=== PATIENT | female | born 1950 | race African-American/Black ===

== ENCOUNTER 2019-05-26 00:02 | Inpatient (IN) ==
[2019-05-27] MEDS ORDERED: ONDANSETRON 4 MG/2 ML VIAL IV PRN (02:13)
[2019-05-27] MEDS ORDERED: ACETAMINOPHEN 325 MG TABLET PO PRN (02:13)
[2019-05-27 02:46] LABS: Basophils % 0.5 % (0.0-0.8); Eosinophils % 0.2 % (0.00-10.9); Hematocrit 39.5 VOL% (35.7-47.0); Hemoglobin 12.8 GM/DL (12.0-16.0); Immature Granulocytes % 0.4 %; Immature Granulocytes Absolute 0.02 #; Lymphocytes # 0.9 10*3/uL (1.4-4.0); Lymphocytes % 15.9 % (21.3-54.2); Mean Corpuscular HGB Conc 32.4 GM/DL (32-36); Mean Corpuscular Volume 88.8 FL (87-102); Mean Platelet Volume 12.1 FL (9.6-12.0); Monocytes % 8.6 % (1.7-12.7); Neutrophils % 74.4 % (38.7-73.9); Platelet Count 129 T/CUMM (130-400); Red Blood Count 4.45 MC/CUMM (3.8-5.5); Red Cell Distribution Width 14.4 % (9.3-17.3); White Blood Count 5.7 T/CUMM (4-12)
[2019-05-27] MEDS: ENOXAPARIN 60 MG/0.6 ML SYRINGE SUBCUT SCH ×2 (02:59→15:20)
[2019-05-27 03:22] LABS: Albumin 3.2 G/DL (3.4-5.0); Bilirubin,Total 1.2 MG/DL (0.2-1.0); Calcium 8.7 MG/DL (8.5-10.1); Osmolality,Calculated 281.4 MOS/KG (273-304); Risk Ratio 2.1; Thyroid Stimulating Hormone 3.3 uIU/ml (0.358-3.74); Total Protein 6.9 G/DL (6.4-8.3); VLDL CHOLESTEROL 13.2 MG/DL
[2019-05-27 04:49] LABS: Apearance,Urine CLEAR (Clear); Bacteria,Urine Occasional /HPF (Few); Bilirubin,Urine Negative (Negative); Blood, Urine Moderate mg/dL (Negative); Glucose,Urine (UA) Negative (Negative); Hyaline Casts,Urine 1 /LPF (0-3); Ketones,Urine Negative (Negative); Mucus,Urine Occasional /LPF (Occasional); Nitrite,Urine Negative (Negative); Protein,Urine Negative; RBC,Urine 5 /HPF (0-4); Squamous Epithelial Cell,Urine Occasional /HPF (0-10); Urine Color Straw (Yellow); Urine Specific Gravity 1.006 (1.001-1.035); Urine Urobilinogen < 2.0 EU/DL (0.2-1.0); WBC,Urine 1 /HPF (0-6)
[2019-05-27] MEDS ORDERED: MAGNESIUM SULF RIDER 2 GM in PREMIX 1 EACH IV ONE (08:59)
[2019-05-27] MEDS: POTASSIUM CHLORIDE 20 MEQ TABLET PO SCH (09:07)
[2019-05-27] MEDS: ASPIRIN EC 81 MG TABLET PO SCH (09:07)
[2019-05-27] MEDS: SPIRONOLACTONE 25 MG TABLET PO SCH (09:07)
[2019-05-27] MEDS: PANTOPRAZOLE 40 MG TABLET PO SCH (09:08)
[2019-05-27] MEDS: FUROSEMIDE 40 MG/4 ML VIAL IV SCH (09:08)
[2019-05-27] MEDS: METOPROLOL SUCCINATE XL 25 MG TABLET PO SCH (09:08)
[2019-05-28] MEDS: ENOXAPARIN 60 MG/0.6 ML SYRINGE SUBCUT SCH (03:27)
[2019-05-28 04:53] LABS: Basophils # 0.1 10*3/uL (0.0-0.2); Eosinophils # 0.3 10*3/uL (0.0-0.87); Eosinophils % 6.7 % (0.00-10.9); Hematocrit 35.3 VOL% (35.7-47.0); Hemoglobin 11.7 GM/DL (12.0-16.0); Immature Granulocytes % 0.2 %; Immature Granulocytes Absolute 0.01 #; Lymphocytes # 1.4 10*3/uL (1.4-4.0); Lymphocytes % 27.4 % (21.3-54.2); Mean Corpuscular HGB Conc 33.1 GM/DL (32-36); Mean Corpuscular Volume 86.9 FL (87-102); Neutrophils % 51.7 % (38.7-73.9); Platelet Count 125 T/CUMM (130-400); Red Blood Count 4.06 MC/CUMM (3.8-5.5); Red Cell Distribution Width 14.2 % (9.3-17.3); White Blood Count 4.9 T/CUMM (4-12)
[2019-05-28 05:13] LABS: Calcium 8.2 MG/DL (8.5-10.1); Osmolality,Calculated 284.1 MOS/KG (273-304)
[2019-05-28 05:21] LABS: Albumin 2.7 G/DL (3.4-5.0); Bilirubin,Direct 0.27 MG/DL (0.0-0.20); Bilirubin,Indirect 0.8 MG/DL (0.0-1.0); Bilirubin,Total 1.1 MG/DL (0.2-1.0); Calcium 8.3 MG/DL (8.5-10.1); Osmolality,Calculated 285.1 MOS/KG (273-304); Total Protein 5.8 G/DL (6.4-8.3)
[2019-05-28] MEDS: PANTOPRAZOLE 40 MG TABLET PO SCH (08:06)
[2019-05-28] MEDS: POTASSIUM CHLORIDE 20 MEQ TABLET PO SCH (08:06)
[2019-05-28] MEDS: ASPIRIN EC 81 MG TABLET PO SCH (08:06)
[2019-05-28] MEDS: FUROSEMIDE 40 MG/4 ML VIAL IV SCH (08:07)
[2019-05-28] MEDS: SPIRONOLACTONE 25 MG TABLET PO SCH (08:08)
[2019-05-28] MEDS: METOPROLOL SUCCINATE XL 25 MG TABLET PO SCH (08:08)
[2019-05-28] MEDS: ENOXAPARIN 40 MG/0.4 ML SYRINGE SUBCUT SCH (21:00)
[2019-05-29 05:20] LABS: Basophils % 0.6 % (0.0-0.8); Eosinophils # 0.4 10*3/uL (0.0-0.87); Eosinophils % 6.9 % (0.00-10.9); Hematocrit 35.5 VOL% (35.7-47.0); Hemoglobin 11.4 GM/DL (12.0-16.0); Immature Granulocytes % 0.2 %; Immature Granulocytes Absolute 0.01 #; Lymphocytes # 1.5 10*3/uL (1.4-4.0); Mean Corpuscular HGB Conc 32.1 GM/DL (32-36); Mean Corpuscular Volume 87.9 FL (87-102); Mean Platelet Volume 11.8 FL (9.6-12.0); Monocytes % 14.7 % (1.7-12.7); Neutrophils % 49.6 % (38.7-73.9); Platelet Count 126 T/CUMM (130-400); Red Blood Count 4.04 MC/CUMM (3.8-5.5); Red Cell Distribution Width 14.5 % (9.3-17.3); White Blood Count 5.4 T/CUMM (4-12)
[2019-05-29 05:47] LABS: Calcium 8.4 MG/DL (8.5-10.1); Osmolality,Calculated 281.1 MOS/KG (273-304)
[2019-05-29] MEDS: SPIRONOLACTONE 25 MG TABLET PO SCH (08:32)
[2019-05-29] MEDS: POTASSIUM CHLORIDE 20 MEQ TABLET PO SCH (08:33)
[2019-05-29] MEDS: FUROSEMIDE 40 MG/4 ML VIAL IV SCH (08:33)
[2019-05-29] MEDS: METOPROLOL SUCCINATE XL 25 MG TABLET PO SCH (08:33)
[2019-05-29] MEDS: ASPIRIN EC 81 MG TABLET PO SCH (08:33)
[2019-05-29] MEDS: PANTOPRAZOLE 40 MG TABLET PO SCH (08:33)
[2019-05-29] MEDS ORDERED: METOPROLOL SUCCINATE XL 25 MG TABLET PO SCH (16:35)
[2019-05-29] MEDS: ENOXAPARIN 40 MG/0.4 ML SYRINGE SUBCUT SCH (20:33)
[2019-05-30 05:47] LABS: Basophils % 0.9 % (0.0-0.8); Eosinophils # 0.3 10*3/uL (0.0-0.87); Eosinophils % 7.4 % (0.00-10.9); Hematocrit 35.7 VOL% (35.7-47.0); Hemoglobin 11.5 GM/DL (12.0-16.0); Immature Granulocytes % 0.2 %; Immature Granulocytes Absolute 0.01 #; Lymphocytes # 1.2 10*3/uL (1.4-4.0); Lymphocytes % 26.7 % (21.3-54.2); Mean Corpuscular HGB Conc 32.2 GM/DL (32-36); Mean Corpuscular Volume 88.4 FL (87-102); Mean Platelet Volume 11.5 FL (9.6-12.0); Monocytes % 16.5 % (1.7-12.7); Neutrophils % 48.3 % (38.7-73.9); Platelet Count 140 T/CUMM (130-400); Red Blood Count 4.04 MC/CUMM (3.8-5.5); Red Cell Distribution Width 14.3 % (9.3-17.3); White Blood Count 4.6 T/CUMM (4-12)
[2019-05-30 06:09] LABS: Calcium 8.4 MG/DL (8.5-10.1); Osmolality,Calculated 278.3 MOS/KG (273-304)
[2019-05-30 06:12] LABS: Eosinophils 13 % (0-10); Hypochromasia 1+; Lymphocytes 30 % (20-55); Platelet Estimate Adequate; Segmented Neutrophils 46 % (50-85); Total Cells Counted 100
[2019-05-30] MEDS: ASPIRIN EC 81 MG TABLET PO SCH (08:23)
[2019-05-30] MEDS: PANTOPRAZOLE 40 MG TABLET PO SCH (08:23)
[2019-05-30] MEDS: SPIRONOLACTONE 25 MG TABLET PO SCH (08:23)
[2019-05-30 11:26] VITALS: BP 96/62
== END 2019-05-30 12:50 | disposition home or self-care (01) | DRG 293 ==
LOC: N.5E → SUPCPDRO 05-27 02:13 → SUATTDRO 05-27 02:13
PROVIDERS: ADMIT Emergency Medicine; ATTEND Internal Medicine

== ENCOUNTER 2019-11-30 23:31 | Inpatient (IN) ==
[2019-11-30] MEDS ORDERED: ASPIRIN 325 MG TABLET PO STA (23:52)
[2019-12-01 01:18] LABS: Alanine Aminotransferase 86 U/L (13-56); Albumin/Globulin Ratio 0.7 RATIO (1.1-2.2); Alkaline Phosphatase 60 U/L (45-117); Anion Gap 11.5 MMOL/L (5.0-15.0); Aspartate Amino Transferase 135 U/L (0-37); Blood Urea Nitrogen 29 MG/DL (7-18); Calcium 8.8 MG/DL (8.5-10.1); Carbon Dioxide 24 MMOL/L (21-32); Chloride 108 MMOL/L (98-107); Creatine Kinase MB < 1.0 NG/ML (0.5-3.6); Estimated Glom Filtration Rate 56 ML/MIN; Globulin 3.9 G/DL (2.3-3.5); Glucose 187 MG/DL (74-106); Osmolality,Calculated 287.5 MOS/KG (273-304); Potassium 4.5 MMOL/L (3.5-5.1); Sodium 139 MMOL/L (136-145); Total Protein 6.9 G/DL (6.4-8.3); Troponin I < 0.015 NG/ML (0.00-0.045)
[2019-12-01 01:33] LABS: Basophils % 0.7 % (0.0-0.8); Eosinophils # 0.1 10*3/uL (0.0-0.87); Eosinophils % 1.6 % (0.00-10.9); Hematocrit 42.9 VOL% (35.7-47.0); Hemoglobin 13.8 GM/DL (12.0-16.0); Hgb & Hct Comparison OK; Immature Granulocytes % 0.9 %; Immature Granulocytes Absolute 0.05 #; Lymphocytes # 1.8 10*3/uL (1.4-4.0); Lymphocytes % 31.1 % (21.3-54.2); Mean Corpuscular HGB Conc 32.2 GM/DL (32-36); Mean Corpuscular Hemoglobin 29 PG (27-34); Mean Corpuscular Volume 88.8 FL (87-102); Monocytes # 0.3 10*3/uL (0.11-0.8); Monocytes % 4.7 % (1.7-12.7); Neutrophils # 3.5 10*3/uL (1.4-7.4); Platelet Count 146 T/CUMM (130-400); Red Blood Count 4.83 MC/CUMM (3.8-5.5); Red Cell Distribution Width 15.8 % (9.3-17.3); White Blood Count 5.8 T/CUMM (4-12)
[2019-12-01 01:54] LABS: INR 1.2
[2019-12-01 02:56] LABS: C-Reactive Protein Inflamm < 0.29 MG/DL (0-0.32); Ferritin 224.5 ng/ml (8-252); Lactate Dehydrogenase 290 U/L (84-246)
[2019-12-01] MEDS ORDERED: LEVOFLOXACIN INJ 500 MG in PREMIX 1 EACH IV STA (04:39)
[2019-12-01] MEDS ORDERED: ONDANSETRON 4 MG/2 ML VIAL IV PRN (04:41)
[2019-12-01] MEDS ORDERED: FAMOTIDINE 20 MG/2 ML VIAL IV ONE (05:13)
[2019-12-01] MEDS ORDERED: FAMOTIDINE 20 MG/2 ML VIAL IV STA (05:24)
[2019-12-01] MEDS ORDERED: AZITHROMYCIN INJ 500 MG in SODIUM CHLORIDE 0.9% 250 ML IV SCH (05:30)
[2019-12-01] MEDS: AZITHROMYCIN 250 MG TABLET PO SCH (08:31)
[2019-12-01] MEDS: PANTOPRAZOLE 40 MG TABLET PO SCH (08:31)
[2019-12-01] MEDS ORDERED: ALBUTEROL 2.5 MG/3 ML NEB RESP TX PRN (08:42)
[2019-12-01] MEDS ORDERED: FUROSEMIDE 40 MG/4 ML VIAL IV SCH (09:00)
[2019-12-01] MEDS ORDERED: FUROSEMIDE 20 MG/2 ML VIAL IV ONE (09:43)
[2019-12-01] MEDS: cefTRIAXone 1,000 MG in SYRINGE 1 EACH IV SCH (10:44)
[2019-12-01] MEDS: SPIRONOLACTONE 25 MG TABLET PO SCH (10:45)
[2019-12-01] MEDS: ASPIRIN EC 81 MG TABLET PO SCH (10:45)
[2019-12-01] MEDS: DICYCLOMINE 10 MG CAPSULE PO SCH ×4 (10:45→20:27)
[2019-12-01] MEDS: ASCORBIC ACID 500 MG TABLET PO SCH ×2 (10:45→20:27)
[2019-12-01 12:21] LABS: Basophils % 0.5 % (0.0-0.8); Eosinophils % 0.2 % (0.00-10.9); Hematocrit 39.9 VOL% (35.7-47.0); Hemoglobin 12.7 GM/DL (12.0-16.0); Hgb & Hct Comparison OK; Immature Granulocytes % 0.4 %; Immature Granulocytes Absolute 0.02 #; Immature Platelet Fraction 7.1 % (0.0-7.0); Lymphocytes # 1.3 10*3/uL (1.4-4.0); Mean Corpuscular HGB Conc 31.8 GM/DL (32-36); Mean Corpuscular Hemoglobin 28 PG (27-34); Mean Corpuscular Volume 89.1 FL (87-102); Mean Platelet Volume 11.9 FL (9.6-12.0); Monocytes # 0.5 10*3/uL (0.11-0.8); Monocytes % 8.8 % (1.7-12.7); Neutrophils # 3.9 10*3/uL (1.4-7.4); Neutrophils % 68.1 % (38.7-73.9); Platelet Count 127 T/CUMM (130-400); Red Blood Count 4.48 MC/CUMM (3.8-5.5); Red Cell Distribution Width 15.9 % (9.3-17.3); White Blood Count 5.7 T/CUMM (4-12)
[2019-12-01 12:44] LABS: Potassium 3.8 MMOL/L (3.5-5.1)
[2019-12-01 12:45] LABS: Calcium 6.5 MG/DL (8.5-10.1)
[2019-12-01 12:47] LABS: Albumin 2.1 G/DL (3.4-5.0); Anion Gap 12.8 MMOL/L (5.0-15.0); Osmolality,Calculated 289.8 MOS/KG (273-304)
[2019-12-01 12:51] LABS: Bilirubin,Total 0.5 MG/DL (0.2-1.0)
[2019-12-01 12:52] LABS: Albumin/Globulin Ratio 0.7 RATIO (1.1-2.2); Globulin 2.7 G/DL (2.3-3.5); Total Protein 4.8 G/DL (6.4-8.3)
[2019-12-01] MEDS: ACETAMINOPHEN 325 MG TABLET PO PRN (16:35)
[2019-12-01] MEDS: METOPROLOL SUCCINATE XL 50 MG TABLET PO SCH (20:27)
[2019-12-02 05:28] LABS: Basophils % 0.8 % (0.0-0.8); Eosinophils # 0.1 10*3/uL (0.0-0.87); Eosinophils % 1.1 % (0.00-10.9); Hematocrit 36.7 VOL% (35.7-47.0); Hemoglobin 12.5 GM/DL (12.0-16.0); Hgb & Hct Comparison OK; Immature Granulocytes % 0.2 %; Immature Granulocytes Absolute 0.01 #; Lymphocytes # 1.9 10*3/uL (1.4-4.0); Lymphocytes % 36.3 % (21.3-54.2); Mean Corpuscular HGB Conc 34.1 GM/DL (32-36); Mean Corpuscular Hemoglobin 29 PG (27-34); Mean Corpuscular Volume 84.2 FL (87-102); Mean Platelet Volume 12.6 FL (9.6-12.0); Monocytes # 0.5 10*3/uL (0.11-0.8); Monocytes % 10.2 % (1.7-12.7); Neutrophils # 2.7 10*3/uL (1.4-7.4); Neutrophils % 51.4 % (38.7-73.9); Platelet Count 135 T/CUMM (130-400); Red Blood Count 4.36 MC/CUMM (3.8-5.5); Red Cell Distribution Width 15.3 % (9.3-17.3); White Blood Count 5.3 T/CUMM (4-12)
[2019-12-02] MEDS ORDERED: LEVOFLOXACIN INJ 500 MG in PREMIX 1 EACH IV SCH (06:00)
[2019-12-02 06:02] LABS: Anion Gap 12.2 MMOL/L (5.0-15.0); Calcium 8.9 MG/DL (8.5-10.1); Magnesium 2.2 MG/DL (1.8-2.4); Osmolality,Calculated 281.7 MOS/KG (273-304); Potassium 4.2 MMOL/L (3.5-5.1)
[2019-12-02] MEDS: AZITHROMYCIN 250 MG TABLET PO SCH (08:56)
[2019-12-02] MEDS: DICYCLOMINE 10 MG CAPSULE PO SCH ×4 (08:56→21:12)
[2019-12-02] MEDS: SPIRONOLACTONE 25 MG TABLET PO SCH (08:56)
[2019-12-02] MEDS: cefTRIAXone 1,000 MG in SYRINGE 1 EACH IV SCH (08:56)
[2019-12-02] MEDS: ASPIRIN EC 81 MG TABLET PO SCH (08:56)
[2019-12-02] MEDS: ASCORBIC ACID 500 MG TABLET PO SCH ×2 (08:56→21:12)
[2019-12-02] MEDS: PANTOPRAZOLE 40 MG TABLET PO SCH (08:56)
[2019-12-02] MEDS ORDERED: FUROSEMIDE 40 MG/4 ML VIAL IV SCH (09:00)
[2019-12-02] MEDS: ACETAMINOPHEN 325 MG TABLET PO PRN (11:23)
[2019-12-02] MEDS ORDERED: DIGOXIN 0.5 MG/2 ML AMP IV SCH (13:00)
[2019-12-02] MEDS: DIGOXIN 0.125 MG TABLET PO SCH (14:31)
[2019-12-02] MEDS: METOPROLOL SUCCINATE XL 50 MG TABLET PO SCH (21:12)
[2019-12-03 05:47] LABS: Basophils % 0.7 % (0.0-0.8); Eosinophils # 0.1 10*3/uL (0.0-0.87); Eosinophils % 2.2 % (0.00-10.9); Hematocrit 34.7 VOL% (35.7-47.0); Hemoglobin 11.7 GM/DL (12.0-16.0); Hgb & Hct Comparison OK; Immature Granulocytes % 0.4 %; Immature Granulocytes Absolute 0.02 #; Immature Platelet Fraction 6.1 % (0.0-7.0); Lymphocytes # 1.6 10*3/uL (1.4-4.0); Lymphocytes % 28.8 % (21.3-54.2); Mean Corpuscular HGB Conc 33.7 GM/DL (32-36); Mean Corpuscular Hemoglobin 29 PG (27-34); Mean Corpuscular Volume 84.8 FL (87-102); Monocytes # 0.7 10*3/uL (0.11-0.8); Monocytes % 11.9 % (1.7-12.7); Neutrophils # 3.1 10*3/uL (1.4-7.4); Platelet Count 116 T/CUMM (130-400); Red Blood Count 4.09 MC/CUMM (3.8-5.5); Red Cell Distribution Width 15.5 % (9.3-17.3); White Blood Count 5.5 T/CUMM (4-12)
[2019-12-03 05:58] LABS: Anion Gap 9.8 MMOL/L (5.0-15.0); Calcium 8.4 MG/DL (8.5-10.1); Osmolality,Calculated 282.3 MOS/KG (273-304); Potassium 3.8 MMOL/L (3.5-5.1)
[2019-12-03 06:11] LABS: Hypochromasia 1+; Platelet Estimate Decreased
[2019-12-03] MEDS ORDERED: FUROSEMIDE 20 MG TABLET PO SCH (09:00)
[2019-12-03] MEDS: SPIRONOLACTONE 25 MG TABLET PO SCH (09:21)
[2019-12-03] MEDS: DICYCLOMINE 10 MG CAPSULE PO SCH ×2 (09:21→13:18)
[2019-12-03] MEDS: ASPIRIN EC 81 MG TABLET PO SCH (09:21)
[2019-12-03] MEDS: PANTOPRAZOLE 40 MG TABLET PO SCH (09:22)
[2019-12-03] MEDS: AZITHROMYCIN 250 MG TABLET PO SCH (09:22)
[2019-12-03] MEDS: cefTRIAXone 1,000 MG in SYRINGE 1 EACH IV SCH (09:22)
[2019-12-03] MEDS: ASCORBIC ACID 500 MG TABLET PO SCH (09:22)
[2019-12-03 13:07] VITALS: BP 92/72
[2019-12-03] MEDS: DIGOXIN 0.125 MG TABLET PO SCH (13:18)
== END 2019-12-03 16:50 | disposition home or self-care (01) ==
LOC: N.ED 23:31 → SUPCPDRO 12-01 04:40 → N.EDINP 12-01 04:40 → N.4E 12-01 08:00
PROVIDERS: ADMIT Family Medicine; ATTEND Family Medicine

== ENCOUNTER 2020-04-05 01:47 | Inpatient (IN) ==
[2020-04-05] MEDS ORDERED: KETOROLAC 30 MG/1 ML VIAL IM STA (02:50)
[2020-04-05] MEDS ORDERED: ASPIRIN CHEW 81 MG TABLET PO STA (03:06)
[2020-04-05] MEDS ORDERED: NITROGLYCERIN 2% OINT 1 INCH/GM PACK TOP STA (03:06)
[2020-04-05] MEDS ORDERED: ENOXAPARIN 30 MG/0.3 ML SYRINGE SUBCUT STA (03:10)
[2020-04-05] MEDS ORDERED: MORPHINE 4 MG/1 ML VIAL IV STA (03:11)
[2020-04-05] MEDS ORDERED: ONDANSETRON 4 MG/2 ML VIAL IV ONE (03:11)
[2020-04-05] MEDS ORDERED: ONDANSETRON 4 MG/2 ML VIAL ONE (03:12)
[2020-04-05] MEDS ORDERED: MORPHINE 4 MG/1 ML VIAL ONE (03:12)
[2020-04-05] MEDS ORDERED: ENOXAPARIN 60 MG/0.6 ML SYRINGE ONE (03:14)
[2020-04-05 03:16] LABS: Basophils % 0.6 % (0.0-0.8); Eosinophils % 0.6 % (0.00-10.9); Hematocrit 40.8 VOL% (35.7-47.0); Hemoglobin 13.3 GM/DL (12.0-16.0); Immature Granulocytes % 0.3 %; Immature Granulocytes Absolute 0.02 #; Lymphocytes # 1.3 10*3/uL (1.4-4.0); Lymphocytes % 19.8 % (21.3-54.2); Mean Corpuscular HGB Conc 32.6 GM/DL (32-36); Mean Corpuscular Volume 88.5 FL (87-102); Mean Platelet Volume 12.2 FL (9.6-12.0); Monocytes % 7.2 % (1.7-12.7); Neutrophils % 71.5 % (38.7-73.9); Platelet Count 194 T/CUMM (130-400); Red Blood Count 4.61 MC/CUMM (3.8-5.5); Red Cell Distribution Width 15.1 % (9.3-17.3); White Blood Count 6.6 T/CUMM (4-12)
[2020-04-05] MEDS ORDERED: ONDANSETRON 4 MG/2 ML VIAL IV PRN (03:25)
[2020-04-05] MEDS ORDERED: DEXTROSE 5% NACL 0.45% 1,000 ML IV SCH ×2 (03:30→09:35)
[2020-04-05 03:33] LABS: Albumin 2.2 G/DL (3.4-5.0); Bilirubin,Total 0.4 MG/DL (0.2-1.0); Calcium 9.4 MG/DL (8.5-10.1); Osmolality,Calculated 265.4 MOS/KG (273-304); Total Protein 8.8 G/DL (6.4-8.3)
[2020-04-05] MEDS ORDERED: ENOXAPARIN 60 MG/0.6 ML SYRINGE SUBCUT STA (03:34)
[2020-04-05 03:58] LABS: Bilirubin,Urine Negative (Negative); Blood, Urine Negative (Negative); Calcium Oxalate Crystals,Urine Few /HPF (Few); Glucose,Urine (UA) Negative (Negative); Hyaline Casts,Urine 61 /LPF (0-3); Ketones,Urine Negative (Negative); Mucus,Urine Many /LPF (Occasional); Nitrite,Urine Negative (Negative); Protein,Urine 100 MG/DL; RBC,Urine 8 /HPF (0-4); Squamous Epithelial Cell,Urine Occasional /HPF (0-10); Urine Appearance Slightly Hazy (Clear); Urine Color Amber (Yellow); Urine Specific Gravity 1.027 (1.001-1.035); WBC,Urine 21 /HPF (0-6)
[2020-04-05] MEDS ORDERED: POTASSIUM CHLORIDE RIDER 10 MEQ in PREMIX 1 EACH IV PRN (08:07)
[2020-04-05] MEDS ORDERED: POTASSIUM CHLORIDE 20 MEQ TABLET PO ONE (08:07)
[2020-04-05] MEDS ORDERED: MAGNESIUM SULF RIDER 2 GM in PREMIX 1 EACH IV PRN (08:07)
[2020-04-05] MEDS ORDERED: PANTOPRAZOLE 40 MG VIAL IV SCH (09:00)
[2020-04-05] MEDS ORDERED: diphenhydrAMINE CAP 25 MG CAPSULE PO ONE (09:00)
[2020-04-05] MEDS ORDERED: DIAZEPAM 5 MG TABLET PO ONE (09:00)
[2020-04-05 09:31] LABS: INR 1.2; PT Patient Result 12.4 SECS (9.8-11.9)
[2020-04-05] MEDS ORDERED: LIDOCAINE 1% 20 ML VIAL ONE (09:47)
[2020-04-05] MEDS ORDERED: HEPARIN/NACL 0.9% 2 UNITS/ML 1,000 ML IV ONE (09:47)
[2020-04-05] MEDS ORDERED: MIDAZOLAM 2 MG/2 ML VIAL ONE (10:18)
[2020-04-05] MEDS ORDERED: fentaNYL 100 MCG/2 ML VIAL ONE (10:18)
[2020-04-05] MEDS ORDERED: BIVALIRUDIN 250 MG VIAL IV ONE ×2 (10:37→10:56)
[2020-04-05] MEDS ORDERED: HEPARIN/NACL 0.9% 2 UNITS/ML 500 ML IV ONE (10:53)
[2020-04-05] MEDS ORDERED: CLOPIDOGREL 300 MG TABLET ONE (11:24)
[2020-04-05] MEDS ORDERED: NITROGLYCERIN SL 0.4 MG TABLET SL PRN (11:48)
[2020-04-05] MEDS ORDERED: LORazepam 2 MG/1 ML VIAL IV PRN (12:46)
[2020-04-05 13:55] LABS: Bilirubin,Urine Negative (Negative); Blood, Urine Small mg/dL (Negative); Glucose,Urine (UA) Negative (Negative); Ketones,Urine Negative (Negative); Mucus,Urine Few /LPF (Occasional); Nitrite,Urine Negative (Negative); Protein,Urine 100 MG/DL; RBC,Urine 31 /HPF (0-4); Squamous Epithelial Cell,Urine Occasional /HPF (0-10); Urine Appearance CLEAR (Clear); Urine Color Amber (Yellow); Urine Specific Gravity > 1.060 (1.001-1.035); WBC,Urine 5 /HPF (0-6)
[2020-04-05] MEDS ORDERED: DIGOXIN 0.5 MG/2 ML AMP IV ONE (14:00)
[2020-04-05 14:21] LABS: Basophils % 0.5 % (0.0-0.8); Eosinophils % 0.2 % (0.00-10.9); Hematocrit 40.7 VOL% (35.7-47.0); Hemoglobin 13.1 GM/DL (12.0-16.0); Immature Granulocytes % 0.5 %; Immature Granulocytes Absolute 0.03 #; Lymphocytes # 0.9 10*3/uL (1.4-4.0); Lymphocytes % 15.7 % (21.3-54.2); Mean Corpuscular HGB Conc 32.2 GM/DL (32-36); Mean Platelet Volume 11.5 FL (9.6-12.0); Monocytes % 12.1 % (1.7-12.7); Platelet Count 169 T/CUMM (130-400); Red Blood Count 4.52 MC/CUMM (3.8-5.5); Red Cell Distribution Width 15.6 % (9.3-17.3); White Blood Count 5.9 T/CUMM (4-12)
[2020-04-05] MEDS: METOPROLOL TARTRATE 25 MG TABLET PO SCH ×2 (14:35→23:47)
[2020-04-05 14:39] LABS: Osmolality,Calculated 279.8 MOS/KG (273-304)
[2020-04-05] MEDS ORDERED: ENOXAPARIN 60 MG/0.6 ML SYRINGE SUBCUT SCH (18:00)
[2020-04-05] MEDS ORDERED: SODIUM CHLORIDE 0.9% 1,000 ML IV ONE (21:17)
[2020-04-05] MEDS ORDERED: HYDROmorphone 2 MG/1 ML VIAL IV ONE (21:17)
[2020-04-05 21:54] LABS: Basophils % 0.5 % (0.0-0.8); Eosinophils # 0.2 10*3/uL (0.0-0.87); Eosinophils % 2.6 % (0.00-10.9); Hematocrit 42.7 VOL% (35.7-47.0); Hemoglobin 13.5 GM/DL (12.0-16.0); Immature Granulocytes % 0.3 %; Immature Granulocytes Absolute 0.02 #; Lymphocytes # 0.7 10*3/uL (1.4-4.0); Lymphocytes % 11.8 % (21.3-54.2); Mean Corpuscular HGB Conc 31.6 GM/DL (32-36); Mean Platelet Volume 11.4 FL (9.6-12.0); Monocytes % 14.4 % (1.7-12.7); Neutrophils % 70.4 % (38.7-73.9); Platelet Count 131 T/CUMM (130-400); Red Blood Count 4.64 MC/CUMM (3.8-5.5); Red Cell Distribution Width 15.8 % (9.3-17.3); White Blood Count 6.1 T/CUMM (4-12)
[2020-04-05] MEDS: ROSUVASTATIN 20 MG TABLET PO SCH (23:46)
[2020-04-06 04:12] LABS: Basophils % 0.4 % (0.0-0.8); Hematocrit 36.9 VOL% (35.7-47.0); Immature Granulocytes % 0.4 %; Immature Granulocytes Absolute 0.02 #; Lymphocytes # 0.9 10*3/uL (1.4-4.0); Lymphocytes % 17.1 % (21.3-54.2); Mean Corpuscular HGB Conc 32.5 GM/DL (32-36); Mean Corpuscular Volume 88.5 FL (87-102); Mean Platelet Volume 11.6 FL (9.6-12.0); Monocytes % 16.7 % (1.7-12.7); Neutrophils % 65.4 % (38.7-73.9); Platelet Count 152 T/CUMM (130-400); Red Blood Count 4.17 MC/CUMM (3.8-5.5); Red Cell Distribution Width 15.3 % (9.3-17.3); White Blood Count 5.1 T/CUMM (4-12)
[2020-04-06 04:38] LABS: Lymphocytes 12 % (20-55); Nucleated Red Blood Cells 2 (0-5); Platelet Estimate Normal; Segmented Neutrophils 82 % (50-85); Total Cells Counted 100
[2020-04-06 04:40] LABS: Calcium 8.7 MG/DL (8.5-10.1); Osmolality,Calculated 281.5 MOS/KG (273-304); Risk Ratio 2.3; VLDL CHOLESTEROL 12.6 MG/DL
[2020-04-06] MEDS: ENOXAPARIN 40 MG/0.4 ML SYRINGE SUBCUT SCH (06:28)
[2020-04-06] MEDS: PANTOPRAZOLE 40 MG TABLET PO SCH ×2 (09:30→13:35)
[2020-04-06] MEDS: ASPIRIN 325 MG TABLET PO SCH ×2 (09:30→13:35)
[2020-04-06] MEDS: METOPROLOL TARTRATE 25 MG TABLET PO SCH ×3 (09:30→20:33)
[2020-04-06] MEDS: CLOPIDOGREL 75 MG TABLET PO SCH ×2 (09:30→13:35)
[2020-04-06] MEDS ORDERED: ALBUTEROL 2.5 MG/3 ML NEB RESP TX PRN (17:22)
[2020-04-06] MEDS: DICYCLOMINE 10 MG CAPSULE PO SCH ×2 (18:13→20:33)
[2020-04-06] MEDS: ROSUVASTATIN 20 MG TABLET PO SCH (20:33)
[2020-04-06] MEDS: ACETAMINOPHEN 500 MG TABLET PO PRN (23:42)
[2020-04-07 04:19] LABS: Basophils % 0.3 % (0.0-0.8); Hematocrit 35.1 VOL% (35.7-47.0); Hemoglobin 11.7 GM/DL (12.0-16.0); Immature Granulocytes % 0.4 %; Immature Granulocytes Absolute 0.03 #; Lymphocytes # 0.7 10*3/uL (1.4-4.0); Lymphocytes % 9.2 % (21.3-54.2); Mean Corpuscular HGB Conc 33.3 GM/DL (32-36); Mean Corpuscular Volume 87.5 FL (87-102); Mean Platelet Volume 11.5 FL (9.6-12.0); Monocytes % 14.7 % (1.7-12.7); NRBC # 0.02 10*3/uL; Neutrophils % 75.4 % (38.7-73.9); Platelet Count 156 T/CUMM (130-400); Red Blood Count 4.01 MC/CUMM (3.8-5.5); Red Cell Distribution Width 15.1 % (9.3-17.3); White Blood Count 7.8 T/CUMM (4-12)
[2020-04-07 04:38] LABS: Calcium 8.8 MG/DL (8.5-10.1); Osmolality,Calculated 280.7 MOS/KG (273-304)
[2020-04-07] MEDS: ENOXAPARIN 40 MG/0.4 ML SYRINGE SUBCUT SCH (06:44)
[2020-04-07] MEDS ORDERED: SPIRONOLACTONE 25 MG TABLET PO SCH (09:00)
[2020-04-07] MEDS: ASPIRIN 325 MG TABLET PO SCH (09:05)
[2020-04-07] MEDS: PANTOPRAZOLE 40 MG TABLET PO SCH (09:05)
[2020-04-07] MEDS: DICYCLOMINE 10 MG CAPSULE PO SCH ×4 (09:05→20:44)
[2020-04-07] MEDS: METOPROLOL TARTRATE 25 MG TABLET PO SCH (09:07)
[2020-04-07] MEDS: CLOPIDOGREL 75 MG TABLET PO SCH (09:09)
[2020-04-07] MEDS ORDERED: SODIUM CHLORIDE 0.45% 1,000 ML IV SCH (09:30)
[2020-04-07] MEDS: DIGOXIN 0.125 MG TABLET PO SCH (14:28)
[2020-04-07] MEDS ORDERED: DIGOXIN 0.5 MG/2 ML AMP IV ONE (15:15)
[2020-04-07] MEDS ORDERED: SODIUM CHLORIDE 0.9% 500 ML IV ONE (15:44)
[2020-04-07] MEDS: ACETAMINOPHEN 500 MG TABLET PO PRN (15:50)
[2020-04-07 16:09] LABS: Calcium 8.8 MG/DL (8.5-10.1); Osmolality,Calculated 275.8 MOS/KG (273-304)
[2020-04-07 16:29] LABS: Bilirubin,Urine Negative (Negative); Blood, Urine Moderate mg/dL (Negative); Glucose,Urine (UA) Negative (Negative); Ketones,Urine Negative (Negative); Mucus,Urine Many /LPF (Occasional); Nitrite,Urine Negative (Negative); Protein,Urine 30 MG/DL; RBC,Urine 42 /HPF (0-4); Squamous Epithelial Cell,Urine Occasional /HPF (0-10); Urine Appearance Slightly Hazy (Clear); Urine Color Amber (Yellow); Urine Specific Gravity 1.035 (1.001-1.035); WBC,Urine 50 /HPF (0-6)
[2020-04-07 16:44] LABS: Basophils % 0.4 % (0.0-0.8); Hemoglobin 13.7 GM/DL (12.0-16.0); Immature Granulocytes % 0.5 %; Immature Granulocytes Absolute 0.04 #; Lymphocytes # 0.7 10*3/uL (1.4-4.0); Lymphocytes % 8.8 % (21.3-54.2); Mean Corpuscular HGB Conc 32.6 GM/DL (32-36); Mean Corpuscular Volume 89.6 FL (87-102); Mean Platelet Volume 11.7 FL (9.6-12.0); Monocytes % 10.3 % (1.7-12.7); Platelet Count 165 T/CUMM (130-400); Red Blood Count 4.69 MC/CUMM (3.8-5.5); Red Cell Distribution Width 15.5 % (9.3-17.3)
[2020-04-07] MEDS: MEROPENEM 500 MG in SODIUM CHLORIDE 0.9% 100 ML IV SCH (17:47)
[2020-04-07] MEDS ORDERED: SODIUM CHLORIDE 0.9% 1,000 ML IV ONE (18:44)
[2020-04-07] MEDS ORDERED: NOREPINEPHRINE 8 MG in SODIUM CHLORIDE 0.9% 242 ML IV PRN (18:44)
[2020-04-07] MEDS: ALBUTEROL 0.63 MG/3 ML NEB RESP TX SCH (19:41)
[2020-04-07] MEDS: ROSUVASTATIN 20 MG TABLET PO SCH (20:44)
[2020-04-08] MEDS: MEROPENEM 500 MG in SODIUM CHLORIDE 0.9% 100 ML IV SCH ×4 (00:22→17:36)
[2020-04-08] MEDS: ACETAMINOPHEN 500 MG TABLET PO PRN ×3 (00:55→19:58)
[2020-04-08] MEDS: ALBUTEROL 0.63 MG/3 ML NEB RESP TX SCH ×4 (01:43→19:48)
[2020-04-08 05:19] LABS: Basophils % 0.2 % (0.0-0.8); Hematocrit 33.7 VOL% (35.7-47.0); Immature Granulocytes % 0.4 %; Immature Granulocytes Absolute 0.02 #; Lymphocytes # 0.5 10*3/uL (1.4-4.0); Lymphocytes % 8.5 % (21.3-54.2); Mean Corpuscular HGB Conc 32.6 GM/DL (32-36); Mean Corpuscular Volume 87.8 FL (87-102); Mean Platelet Volume 11.9 FL (9.6-12.0); Monocytes % 8.9 % (1.7-12.7); Red Blood Count 3.84 MC/CUMM (3.8-5.5); Red Cell Distribution Width 15.1 % (9.3-17.3)
[2020-04-08 05:22] LABS: Platelet Count 120 T/CUMM (130-400); White Blood Count 5.5 T/CUMM (4-12)
[2020-04-08 05:34] LABS: Calcium 7.9 MG/DL (8.5-10.1); Osmolality,Calculated 275.7 MOS/KG (273-304)
[2020-04-08] MEDS: ENOXAPARIN 40 MG/0.4 ML SYRINGE SUBCUT SCH (06:03)
[2020-04-08] MEDS: PANTOPRAZOLE 40 MG TABLET PO SCH (08:42)
[2020-04-08] MEDS: ASPIRIN 325 MG TABLET PO SCH (08:42)
[2020-04-08] MEDS: CLOPIDOGREL 75 MG TABLET PO SCH (08:42)
[2020-04-08] MEDS: DICYCLOMINE 10 MG CAPSULE PO SCH ×4 (08:45→21:17)
[2020-04-08] MEDS: DIGOXIN 0.125 MG TABLET PO SCH (12:31)
[2020-04-08] MEDS ORDERED: POTASSIUM CHLORIDE 20 MEQ TABLET PO ONE (12:52)
[2020-04-08] MEDS: ROSUVASTATIN 20 MG TABLET PO SCH (21:17)
[2020-04-09] MEDS: MEROPENEM 500 MG in SODIUM CHLORIDE 0.9% 100 ML IV SCH ×5 (00:18→23:17)
[2020-04-09] MEDS: ALBUTEROL 0.63 MG/3 ML NEB RESP TX SCH ×4 (01:19→19:10)
[2020-04-09 05:49] LABS: Basophils % 0.2 % (0.0-0.8); Hematocrit 34.9 VOL% (35.7-47.0); Hemoglobin 11.7 GM/DL (12.0-16.0); Immature Granulocytes % 0.5 %; Immature Granulocytes Absolute 0.02 #; Lymphocytes # 0.6 10*3/uL (1.4-4.0); Lymphocytes % 13.9 % (21.3-54.2); Mean Corpuscular HGB Conc 33.5 GM/DL (32-36); Mean Corpuscular Volume 86.6 FL (87-102); Mean Platelet Volume 11.6 FL (9.6-12.0); Neutrophils % 75.4 % (38.7-73.9); Platelet Count 122 T/CUMM (130-400); Red Blood Count 4.03 MC/CUMM (3.8-5.5); Red Cell Distribution Width 15.1 % (9.3-17.3); White Blood Count 4.1 T/CUMM (4-12)
[2020-04-09 06:02] LABS: Osmolality,Calculated 277.4 MOS/KG (273-304)
[2020-04-09] MEDS: ENOXAPARIN 40 MG/0.4 ML SYRINGE SUBCUT SCH (06:11)
[2020-04-09 06:22] LABS: Platelet Estimate Adequate
[2020-04-09 06:23] LABS: Anisocytosis 2+; Burr Cells Few; Poikilocytosis Slight
[2020-04-09 06:24] LABS: Macrocytosis Slight
[2020-04-09] MEDS: ASPIRIN 325 MG TABLET PO SCH (08:22)
[2020-04-09] MEDS: DICYCLOMINE 10 MG CAPSULE PO SCH ×4 (08:22→20:36)
[2020-04-09] MEDS: CLOPIDOGREL 75 MG TABLET PO SCH (08:23)
[2020-04-09] MEDS: PANTOPRAZOLE 40 MG TABLET PO SCH (08:23)
[2020-04-09] MEDS: DIGOXIN 0.125 MG TABLET PO SCH (12:14)
[2020-04-09] MEDS: ROSUVASTATIN 20 MG TABLET PO SCH (20:36)
[2020-04-09] MEDS: ACETAMINOPHEN 500 MG TABLET PO PRN (23:18)
[2020-04-10] MEDS: ALBUTEROL 0.63 MG/3 ML NEB RESP TX SCH ×3 (01:21→13:14)
[2020-04-10] MEDS: MEROPENEM 500 MG in SODIUM CHLORIDE 0.9% 100 ML IV SCH ×3 (06:03→17:25)
[2020-04-10] MEDS: ENOXAPARIN 40 MG/0.4 ML SYRINGE SUBCUT SCH (06:04)
[2020-04-10 06:18] LABS: Basophils % 0.3 % (0.0-0.8); Hemoglobin 11.6 GM/DL (12.0-16.0); Immature Granulocytes % 0.3 %; Immature Granulocytes Absolute 0.01 #; Lymphocytes # 0.9 10*3/uL (1.4-4.0); Lymphocytes % 24.4 % (21.3-54.2); Mean Corpuscular HGB Conc 34.1 GM/DL (32-36); Mean Corpuscular Volume 85.2 FL (87-102); Mean Platelet Volume 11.3 FL (9.6-12.0); Monocytes % 7.8 % (1.7-12.7); Neutrophils % 67.2 % (38.7-73.9); Platelet Count 135 T/CUMM (130-400); Red Blood Count 3.99 MC/CUMM (3.8-5.5); Red Cell Distribution Width 14.9 % (9.3-17.3); White Blood Count 3.5 T/CUMM (4-12)
[2020-04-10 06:38] LABS: Albumin 1.7 G/DL (3.4-5.0); Bilirubin,Direct 0.24 MG/DL (0.0-0.20); Bilirubin,Indirect 1.2 MG/DL (0.0-1.0); Bilirubin,Total 1.4 MG/DL (0.2-1.0); Total Protein 5.4 G/DL (6.4-8.3)
[2020-04-10 06:39] LABS: Calcium 7.8 MG/DL (8.5-10.1); Osmolality,Calculated 275.7 MOS/KG (273-304)
[2020-04-10] MEDS ORDERED: MAGNESIUM SULF RIDER 2 GM in PREMIX 1 EACH IV ONE (07:22)
[2020-04-10] MEDS ORDERED: POTASSIUM CHLORIDE 20 MEQ TABLET PO ONE (07:22)
[2020-04-10] MEDS: DICYCLOMINE 10 MG CAPSULE PO SCH ×4 (08:37→21:24)
[2020-04-10] MEDS: CLOPIDOGREL 75 MG TABLET PO SCH (08:37)
[2020-04-10] MEDS: ASPIRIN 325 MG TABLET PO SCH (08:37)
[2020-04-10] MEDS: PANTOPRAZOLE 40 MG TABLET PO SCH (08:37)
[2020-04-10] MEDS ORDERED: DIGOXIN 0.5 MG/2 ML AMP IV ONE (11:29)
[2020-04-10] MEDS: DIGOXIN 0.125 MG TABLET PO SCH (12:02)
[2020-04-10] MEDS: ALBUTEROL INHALER 18 GM INH SCH (19:15)
[2020-04-10] MEDS: ROSUVASTATIN 20 MG TABLET PO SCH (21:24)
[2020-04-10] MEDS: ACETAMINOPHEN 500 MG TABLET PO PRN (21:24)
[2020-04-11] MEDS: MEROPENEM 500 MG in SODIUM CHLORIDE 0.9% 100 ML IV SCH ×4 (06:05→18:27)
[2020-04-11] MEDS: ENOXAPARIN 40 MG/0.4 ML SYRINGE SUBCUT SCH (06:05)
[2020-04-11] MEDS: ALBUTEROL INHALER 18 GM INH SCH ×4 (06:05→19:30)
[2020-04-11 07:03] LABS: Calcium 7.9 MG/DL (8.5-10.1); Osmolality,Calculated 273.7 MOS/KG (273-304)
[2020-04-11] MEDS: ASPIRIN 325 MG TABLET PO SCH (08:22)
[2020-04-11] MEDS: DICYCLOMINE 10 MG CAPSULE PO SCH ×4 (08:22→20:09)
[2020-04-11] MEDS: CLOPIDOGREL 75 MG TABLET PO SCH (08:22)
[2020-04-11] MEDS: PANTOPRAZOLE 40 MG TABLET PO SCH (08:22)
[2020-04-11] MEDS: METOPROLOL SUCCINATE XL 25 MG TABLET PO SCH ×2 (08:22)
[2020-04-11] MEDS ORDERED: DIGOXIN 0.5 MG/2 ML AMP IV ONE (09:54)
[2020-04-11] MEDS: ACETAMINOPHEN 500 MG TABLET PO PRN ×2 (11:33→20:09)
[2020-04-11] MEDS: DIGOXIN 0.125 MG TABLET PO SCH (13:35)
[2020-04-11] MEDS: ROSUVASTATIN 20 MG TABLET PO SCH (20:09)
[2020-04-12] MEDS: MEROPENEM 500 MG in SODIUM CHLORIDE 0.9% 100 ML IV SCH ×4 (00:56→18:07)
[2020-04-12] MEDS: ALBUTEROL INHALER 18 GM INH SCH ×4 (01:30→18:07)
[2020-04-12 06:07] LABS: Basophils % 0.2 % (0.0-0.8); Hemoglobin 12.7 GM/DL (12.0-16.0); Immature Granulocytes % 0.6 %; Immature Granulocytes Absolute 0.03 #; Lymphocytes # 0.5 10*3/uL (1.4-4.0); Lymphocytes % 10.4 % (21.3-54.2); Mean Corpuscular HGB Conc 34.3 GM/DL (32-36); Mean Corpuscular Volume 82.8 FL (87-102); Mean Platelet Volume 11.7 FL (9.6-12.0); Neutrophils % 84.8 % (38.7-73.9); Platelet Count 152 T/CUMM (130-400); Red Blood Count 4.47 MC/CUMM (3.8-5.5); Red Cell Distribution Width 14.6 % (9.3-17.3); White Blood Count 5.2 T/CUMM (4-12)
[2020-04-12] MEDS: ENOXAPARIN 40 MG/0.4 ML SYRINGE SUBCUT SCH (06:15)
[2020-04-12 06:35] LABS: Calcium 8.2 MG/DL (8.5-10.1)
[2020-04-12 06:50] LABS: Hypochromasia 1+; Lymphocytes 7 % (20-55); Ovalocytes Slight; Platelet Estimate Adequate; Segmented Neutrophils 91 % (50-85); Total Cells Counted 100
[2020-04-12] MEDS ORDERED: MAGNESIUM SULF RIDER 2 GM in PREMIX 1 EACH IV ONE (08:53)
[2020-04-12] MEDS ORDERED: POTASSIUM CHLORIDE 20 MEQ PACK PO ONE (08:54)
[2020-04-12] MEDS: PANTOPRAZOLE 40 MG TABLET PO SCH (10:01)
[2020-04-12] MEDS: METOPROLOL SUCCINATE XL 25 MG TABLET PO SCH (10:01)
[2020-04-12] MEDS: DICYCLOMINE 10 MG CAPSULE PO SCH ×4 (10:01→20:42)
[2020-04-12] MEDS: CLOPIDOGREL 75 MG TABLET PO SCH (10:01)
[2020-04-12] MEDS: ASPIRIN EC 81 MG TABLET PO SCH (10:01)
[2020-04-12] MEDS: FUROSEMIDE 20 MG TABLET PO SCH (12:35)
[2020-04-12] MEDS: DIGOXIN 0.125 MG TABLET PO SCH (12:36)
[2020-04-12] MEDS: ROSUVASTATIN 20 MG TABLET PO SCH (20:42)
[2020-04-13] MEDS: MEROPENEM 500 MG in SODIUM CHLORIDE 0.9% 100 ML IV SCH ×4 (00:40→17:47)
[2020-04-13] MEDS: ALBUTEROL INHALER 18 GM INH SCH ×4 (01:03→18:52)
[2020-04-13] MEDS: ENOXAPARIN 40 MG/0.4 ML SYRINGE SUBCUT SCH (05:52)
[2020-04-13 06:55] LABS: Calcium 8.3 MG/DL (8.5-10.1); Osmolality,Calculated 271.8 MOS/KG (273-304)
[2020-04-13] MEDS: DICYCLOMINE 10 MG CAPSULE PO SCH ×4 (09:13→21:39)
[2020-04-13] MEDS: FUROSEMIDE 20 MG TABLET PO SCH (09:13)
[2020-04-13] MEDS: ASPIRIN EC 81 MG TABLET PO SCH (09:13)
[2020-04-13] MEDS: CLOPIDOGREL 75 MG TABLET PO SCH (09:13)
[2020-04-13] MEDS: METOPROLOL SUCCINATE XL 25 MG TABLET PO SCH (09:13)
[2020-04-13] MEDS: PANTOPRAZOLE 40 MG TABLET PO SCH (09:13)
[2020-04-13] MEDS: DIGOXIN 0.125 MG TABLET PO SCH (13:09)
[2020-04-13] MEDS: DEXAMETHASONE 4 MG TABLET PO SCH (13:09)
[2020-04-13] MEDS: ROSUVASTATIN 20 MG TABLET PO SCH (21:39)
[2020-04-14] MEDS: MEROPENEM 500 MG in SODIUM CHLORIDE 0.9% 100 ML IV SCH ×3 (00:44→12:14)
[2020-04-14] MEDS: ALBUTEROL INHALER 18 GM INH SCH ×3 (01:30→12:15)
[2020-04-14] MEDS: ENOXAPARIN 40 MG/0.4 ML SYRINGE SUBCUT SCH (06:44)
[2020-04-14] MEDS: PANTOPRAZOLE 40 MG TABLET PO SCH (08:24)
[2020-04-14] MEDS: DEXAMETHASONE 4 MG TABLET PO SCH (08:24)
[2020-04-14] MEDS: ASPIRIN EC 81 MG TABLET PO SCH (08:24)
[2020-04-14] MEDS: CLOPIDOGREL 75 MG TABLET PO SCH (08:24)
[2020-04-14] MEDS: METOPROLOL SUCCINATE XL 25 MG TABLET PO SCH (08:24)
[2020-04-14] MEDS: DICYCLOMINE 10 MG CAPSULE PO SCH ×2 (08:24→12:15)
[2020-04-14] MEDS: FUROSEMIDE 20 MG TABLET PO SCH (08:25)
[2020-04-14 11:18] VITALS: BP 96/54
[2020-04-14] MEDS: DIGOXIN 0.125 MG TABLET PO SCH (12:15)
== END 2020-04-14 14:46 | disposition home health service (06) | DRG 250 ==
LOC: N.EDINP 01:47 → N.ED 01:47 → N.ICU 05:00 → SUATTDRO 12:54 → N.TELES 04-10 00:10 → N.2E 04-10 16:53
PROVIDERS: ADMIT Internal Medicine Cardiovascular Disease; ATTEND Family Medicine
PROC: CLCCHCL (ICD-10-PCS; 2020-04-05 09:45)

== ENCOUNTER 2020-04-15 14:33 | Inpatient (IN) ==
[2020-04-15 18:06] LABS: Basophils % 0.2 % (0.0-0.8); Hematocrit 41.4 VOL% (35.7-47.0); Hemoglobin 14.1 GM/DL (12.0-16.0); Immature Granulocytes % 0.6 %; Immature Granulocytes Absolute 0.06 #; Lymphocytes # 0.6 10*3/uL (1.4-4.0); Lymphocytes % 5.5 % (21.3-54.2); Mean Corpuscular HGB Conc 34.1 GM/DL (32-36); Mean Corpuscular Volume 83.6 FL (87-102); Mean Platelet Volume 10.9 FL (9.6-12.0); Monocytes % 1.6 % (1.7-12.7); Neutrophils % 92.1 % (38.7-73.9); Platelet Count 284 T/CUMM (130-400); Red Blood Count 4.95 MC/CUMM (3.8-5.5); Red Cell Distribution Width 14.6 % (9.3-17.3); White Blood Count 10.7 T/CUMM (4-12)
[2020-04-15 18:21] LABS: Albumin 2.4 G/DL (3.4-5.0); Bilirubin,Total 0.7 MG/DL (0.2-1.0); Osmolality,Calculated 276.5 MOS/KG (273-304); Total Protein 7.3 G/DL (6.4-8.3)
[2020-04-15 18:24] LABS: Bilirubin,Urine Negative (Negative); Blood, Urine Negative (Negative); Glucose,Urine (UA) Negative (Negative); Hyaline Casts,Urine 7 /LPF (0-3); Ketones,Urine Negative (Negative); Mucus,Urine Occasional /LPF (Occasional); Nitrite,Urine Negative (Negative); Protein,Urine Negative; RBC,Urine 1 /HPF (0-4); Squamous Epithelial Cell,Urine Occasional /HPF (0-10); Urine Appearance CLEAR (Clear); Urine Color Straw (Yellow); Urine Specific Gravity 1.006 (1.001-1.035); Urine Urobilinogen < 2.0 EU/DL (0.2-1.0); WBC,Urine 3 /HPF (0-6)
[2020-04-15 18:27] LABS: Hypochromasia 1+; Lymphocytes 5 % (20-55); Segmented Neutrophils 94 % (50-85); Total Cells Counted 100
[2020-04-15 18:28] LABS: Elliptocytes Few; Platelet Estimate Adequate; Target Cells Few
[2020-04-15] MEDS ORDERED: FUROSEMIDE 40 MG/4 ML VIAL IV STA (18:29)
[2020-04-15] MEDS ORDERED: ONDANSETRON 4 MG/2 ML VIAL IV PRN (18:38)
[2020-04-15] MEDS ORDERED: NON-FORMULARY MEDICATION (Omeprazole 20 MG capsule,delayed release(DR/EC)) PO SCH (21:00)
[2020-04-15] MEDS: ROSUVASTATIN 20 MG TABLET PO SCH (23:15)
[2020-04-15] MEDS: DICYCLOMINE 10 MG CAPSULE PO SCH (23:15)
[2020-04-15] MEDS: DOCUSATE SODIUM 100 MG CAPSULE PO SCH (23:15)
[2020-04-15] MEDS: FUROSEMIDE 40 MG/4 ML VIAL IV SCH (23:20)
[2020-04-16 05:43] LABS: Eosinophils % 0.1 % (0.00-10.9); Hematocrit 35.5 VOL% (35.7-47.0); Hemoglobin 12.2 GM/DL (12.0-16.0); Immature Granulocytes % 0.7 %; Immature Granulocytes Absolute 0.05 #; Lymphocytes # 0.4 10*3/uL (1.4-4.0); Lymphocytes % 5.7 % (21.3-54.2); Mean Corpuscular HGB Conc 34.4 GM/DL (32-36); Mean Corpuscular Volume 82.6 FL (87-102); Mean Platelet Volume 10.7 FL (9.6-12.0); Monocytes % 2.4 % (1.7-12.7); Neutrophils % 91.1 % (38.7-73.9); Red Cell Distribution Width 14.2 % (9.3-17.3)
[2020-04-16 05:48] LABS: Platelet Count 213 T/CUMM (130-400); White Blood Count 7.6 T/CUMM (4-12)
[2020-04-16 06:05] LABS: Albumin 1.9 G/DL (3.4-5.0); Bilirubin,Total 1.2 MG/DL (0.2-1.0); Calcium 8.2 MG/DL (8.5-10.1); Osmolality,Calculated 271.8 MOS/KG (273-304); Total Protein 6.2 G/DL (6.4-8.3)
[2020-04-16] MEDS ORDERED: SODIUM CHLORIDE 0.9% 1,000 ML IV SCH (06:30)
[2020-04-16 06:34] LABS: Hypochromasia 2+; Lymphocytes 6 % (20-55); Segmented Neutrophils 92 % (50-85); Total Cells Counted 100
[2020-04-16 06:35] LABS: Macrocytosis Slight; Platelet Estimate Normal; Target Cells Few
[2020-04-16] MEDS: SPIRONOLACTONE 25 MG TABLET PO SCH (08:40)
[2020-04-16] MEDS: DEXAMETHASONE 4 MG TABLET PO SCH (08:43)
[2020-04-16] MEDS: FUROSEMIDE 40 MG/4 ML VIAL IV SCH (08:43)
[2020-04-16] MEDS: DICYCLOMINE 10 MG CAPSULE PO SCH ×4 (08:43→21:33)
[2020-04-16] MEDS: ASPIRIN EC 81 MG TABLET PO SCH (08:43)
[2020-04-16] MEDS: DOCUSATE SODIUM 100 MG CAPSULE PO SCH ×2 (08:43→21:33)
[2020-04-16] MEDS: PANTOPRAZOLE 40 MG TABLET PO SCH (08:44)
[2020-04-16] MEDS: CLOPIDOGREL 75 MG TABLET PO SCH (08:44)
[2020-04-16] MEDS: METOPROLOL SUCCINATE XL 25 MG TABLET PO SCH (08:44)
[2020-04-16] MEDS ORDERED: PROMETHAZINE 25 MG/1 ML VIAL IM PRN (10:54)
[2020-04-16] MEDS ORDERED: MAGNESIUM SULF RIDER 4 GM in PREMIX 1 EACH IV PRN (10:56)
[2020-04-16] MEDS ORDERED: MAGNESIUM SULF RIDER 2 GM in PREMIX 1 EACH IV PRN (10:56)
[2020-04-16] MEDS ORDERED: POTASSIUM CHLORIDE 20 MEQ TABLET PO ONE (10:57)
[2020-04-16] MEDS: DIGOXIN 0.125 MG TABLET PO SCH (12:12)
[2020-04-16] MEDS: ACETAMINOPHEN 325 MG TABLET PO PRN (12:12)
[2020-04-16] MEDS: cefTRIAXone 1,000 MG in SYRINGE 1 EACH IV SCH (14:11)
[2020-04-16] MEDS: POTASSIUM CHLORIDE 20 MEQ TABLET PO PRN ×3 (14:20→19:26)
[2020-04-16] MEDS ORDERED: SODIUM CHLORIDE 0.9% 500 ML IV ONE (16:27)
[2020-04-16] MEDS: ROSUVASTATIN 20 MG TABLET PO SCH (21:33)
[2020-04-17] MEDS: POTASSIUM CHLORIDE 20 MEQ TABLET PO PRN ×2 (04:27→06:47)
[2020-04-17] MEDS: ASPIRIN EC 81 MG TABLET PO SCH (08:03)
[2020-04-17] MEDS: DICYCLOMINE 10 MG CAPSULE PO SCH ×4 (08:03→20:36)
[2020-04-17] MEDS: SPIRONOLACTONE 25 MG TABLET PO SCH (08:03)
[2020-04-17] MEDS: DOCUSATE SODIUM 100 MG CAPSULE PO SCH ×2 (08:04→20:36)
[2020-04-17] MEDS: cefTRIAXone 1,000 MG in SYRINGE 1 EACH IV SCH (08:04)
[2020-04-17] MEDS: PANTOPRAZOLE 40 MG TABLET PO SCH (08:04)
[2020-04-17] MEDS: CLOPIDOGREL 75 MG TABLET PO SCH (08:04)
[2020-04-17] MEDS: FUROSEMIDE 40 MG/4 ML VIAL IV SCH (08:04)
[2020-04-17] MEDS: DEXAMETHASONE 4 MG TABLET PO SCH (08:04)
[2020-04-17] MEDS: POTASSIUM CHLORIDE 10 MEQ TABLET PO SCH (08:04)
[2020-04-17] MEDS: METOPROLOL SUCCINATE XL 25 MG TABLET PO SCH (08:05)
[2020-04-17] MEDS ORDERED: FUROSEMIDE 40 MG TABLET PO SCH (09:00)
[2020-04-17] MEDS: DIGOXIN 0.125 MG TABLET PO SCH (13:12)
[2020-04-17] MEDS: ROSUVASTATIN 20 MG TABLET PO SCH (20:36)
[2020-04-18] MEDS: POTASSIUM CHLORIDE 10 MEQ TABLET PO SCH (08:07)
[2020-04-18] MEDS: DICYCLOMINE 10 MG CAPSULE PO SCH ×4 (08:07→20:34)
[2020-04-18] MEDS: CLOPIDOGREL 75 MG TABLET PO SCH (08:07)
[2020-04-18] MEDS: DOCUSATE SODIUM 100 MG CAPSULE PO SCH ×2 (08:07→20:34)
[2020-04-18] MEDS: METOPROLOL SUCCINATE XL 25 MG TABLET PO SCH (08:07)
[2020-04-18] MEDS: ASPIRIN EC 81 MG TABLET PO SCH (08:07)
[2020-04-18] MEDS: SPIRONOLACTONE 25 MG TABLET PO SCH (08:07)
[2020-04-18] MEDS: PANTOPRAZOLE 40 MG TABLET PO SCH (08:07)
[2020-04-18] MEDS: DEXAMETHASONE 4 MG TABLET PO SCH (08:12)
[2020-04-18] MEDS: FUROSEMIDE 40 MG/4 ML VIAL IV SCH (08:12)
[2020-04-18] MEDS: cefTRIAXone 1,000 MG in SYRINGE 1 EACH IV SCH (08:13)
[2020-04-18] MEDS: DIGOXIN 0.125 MG TABLET PO SCH (14:00)
[2020-04-18] MEDS: ACETAMINOPHEN 325 MG TABLET PO PRN (20:35)
[2020-04-18] MEDS: ROSUVASTATIN 20 MG TABLET PO SCH (20:35)
[2020-04-19] MEDS: cefTRIAXone 1,000 MG in SYRINGE 1 EACH IV SCH (10:24)
[2020-04-19] MEDS: FUROSEMIDE 40 MG/4 ML VIAL IV SCH (10:24)
[2020-04-19] MEDS: SPIRONOLACTONE 25 MG TABLET PO SCH (10:24)
[2020-04-19] MEDS: DEXAMETHASONE 4 MG TABLET PO SCH (10:24)
[2020-04-19] MEDS: DOCUSATE SODIUM 100 MG CAPSULE PO SCH ×2 (10:25→20:35)
[2020-04-19] MEDS: ASPIRIN EC 81 MG TABLET PO SCH (10:25)
[2020-04-19] MEDS: DICYCLOMINE 10 MG CAPSULE PO SCH ×4 (10:25→20:35)
[2020-04-19] MEDS: POTASSIUM CHLORIDE 10 MEQ TABLET PO SCH (10:25)
[2020-04-19] MEDS: CLOPIDOGREL 75 MG TABLET PO SCH (10:25)
[2020-04-19] MEDS: METOPROLOL SUCCINATE XL 25 MG TABLET PO SCH (10:25)
[2020-04-19] MEDS: PANTOPRAZOLE 40 MG TABLET PO SCH (10:25)
[2020-04-19] MEDS: DIGOXIN 0.125 MG TABLET PO SCH (13:01)
[2020-04-19 13:56] LABS: Eosinophils % 0.9 % (0.00-10.9); Hematocrit 35.5 VOL% (35.7-47.0); Hemoglobin 11.8 GM/DL (12.0-16.0); Immature Granulocytes % 0.9 %; Immature Granulocytes Absolute 0.04 #; Lymphocytes # 0.4 10*3/uL (1.4-4.0); Lymphocytes % 8.4 % (21.3-54.2); Mean Corpuscular HGB Conc 33.2 GM/DL (32-36); Mean Corpuscular Volume 85.3 FL (87-102); Mean Platelet Volume 10.2 FL (9.6-12.0); Monocytes % 4.1 % (1.7-12.7); Neutrophils % 85.7 % (38.7-73.9); Platelet Count 325 T/CUMM (130-400); Red Blood Count 4.16 MC/CUMM (3.8-5.5); Red Cell Distribution Width 14.5 % (9.3-17.3); White Blood Count 4.4 T/CUMM (4-12)
[2020-04-19 14:11] LABS: Calcium 8.2 MG/DL (8.5-10.1); Osmolality,Calculated 279.5 MOS/KG (273-304)
[2020-04-19] MEDS: POTASSIUM CHLORIDE 20 MEQ TABLET PO PRN ×3 (14:35→20:35)
[2020-04-19 14:44] LABS: Band Neutrophils 1 % (0-10); Lymphocytes 10 % (20-55); Segmented Neutrophils 88 % (50-85); Total Cells Counted 100
[2020-04-19 14:45] LABS: Atypical Lymphocytes Few; Platelet Estimate Normal
[2020-04-19 14:46] LABS: Polychromasia Slight; Target Cells Slight
[2020-04-19] MEDS: ACETAMINOPHEN 325 MG TABLET PO PRN (20:35)
[2020-04-19] MEDS: ROSUVASTATIN 20 MG TABLET PO SCH (20:35)
[2020-04-20 07:06] LABS: Basophils % 0.3 % (0.0-0.8); Hematocrit 33.9 VOL% (35.7-47.0); Hemoglobin 11.2 GM/DL (12.0-16.0); Immature Granulocytes % 0.5 %; Immature Granulocytes Absolute 0.02 #; Lymphocytes # 0.8 10*3/uL (1.4-4.0); Lymphocytes % 19.5 % (21.3-54.2); Mean Corpuscular Volume 84.8 FL (87-102); Monocytes % 9.4 % (1.7-12.7); Neutrophils % 70.3 % (38.7-73.9); Platelet Count 318 T/CUMM (130-400); Red Cell Distribution Width 14.5 % (9.3-17.3); White Blood Count 3.9 T/CUMM (4-12)
[2020-04-20 07:29] LABS: Calcium 8.5 MG/DL (8.5-10.1); Osmolality,Calculated 278.5 MOS/KG (273-304)
[2020-04-20 07:30] LABS: Hypochromasia 1+; Lymphocytes 19 % (20-55); Microcytosis 1+; Platelet Estimate Adequate; Segmented Neutrophils 68 % (50-85); Total Cells Counted 100
[2020-04-20] MEDS: METOPROLOL SUCCINATE XL 25 MG TABLET PO SCH (08:30)
[2020-04-20] MEDS: PANTOPRAZOLE 40 MG TABLET PO SCH (08:30)
[2020-04-20] MEDS: DEXAMETHASONE 4 MG TABLET PO SCH (08:30)
[2020-04-20] MEDS: DICYCLOMINE 10 MG CAPSULE PO SCH ×3 (08:30→16:54)
[2020-04-20] MEDS: POTASSIUM CHLORIDE 10 MEQ TABLET PO SCH (08:30)
[2020-04-20] MEDS: ASPIRIN EC 81 MG TABLET PO SCH (08:30)
[2020-04-20] MEDS: CLOPIDOGREL 75 MG TABLET PO SCH (08:30)
[2020-04-20] MEDS: SPIRONOLACTONE 25 MG TABLET PO SCH (08:30)
[2020-04-20] MEDS: DOCUSATE SODIUM 100 MG CAPSULE PO SCH (08:30)
[2020-04-20] MEDS: FUROSEMIDE 40 MG/4 ML VIAL IV SCH (09:21)
[2020-04-20] MEDS: cefTRIAXone 1,000 MG in SYRINGE 1 EACH IV SCH (09:21)
[2020-04-20] MEDS: DIGOXIN 0.125 MG TABLET PO SCH (13:36)
[2020-04-20 20:58] VITALS: BP 90/71
== END 2020-04-20 19:50 | disposition swing bed (61) | DRG 177 ==
LOC: N.ED 14:33 → INTOOBSV 18:38 → N.EDINP 18:38 → N.2E 21:33
PROVIDERS: ADMIT Family Medicine; ATTEND Family Medicine

== ENCOUNTER 2020-05-30 14:00 | Inpatient (IN) ==
[2020-05-30] MEDS ORDERED: FUROSEMIDE 40 MG/4 ML VIAL IV STA (14:53)
[2020-05-30 15:01] LABS: Basophils # 0.1 10*3/uL (0.0-0.2); Eosinophils # 0.1 10*3/uL (0.0-0.87); Eosinophils % 1.8 % (0.00-10.9); Hematocrit 37.6 VOL% (35.7-47.0); Hemoglobin 11.7 GM/DL (12.0-16.0); Immature Granulocytes % 0.5 %; Immature Granulocytes Absolute 0.03 #; Lymphocytes # 1.2 10*3/uL (1.4-4.0); Lymphocytes % 19.4 % (21.3-54.2); Mean Corpuscular HGB Conc 31.1 GM/DL (32-36); Mean Platelet Volume 11.4 FL (9.6-12.0); Monocytes % 9.7 % (1.7-12.7); Neutrophils % 67.6 % (38.7-73.9); Platelet Count 233 T/CUMM (130-400); Red Blood Count 4.13 MC/CUMM (3.8-5.5); Red Cell Distribution Width 17.2 % (9.3-17.3); White Blood Count 6.2 T/CUMM (4-12)
[2020-05-30 15:11] LABS: Albumin 3.1 G/DL (3.4-5.0); Bilirubin,Total 0.8 MG/DL (0.2-1.0); Calcium 9.1 MG/DL (8.5-10.1); Osmolality,Calculated 282.3 MOS/KG (273-304); Potassium 4.8 MMOL/L (3.5-5.1); Total Protein 7.8 G/DL (6.4-8.3)
[2020-05-30 15:34] LABS: ABG Base Excess 1.6 MMOL/L (-2.5-2.5); ABG HCO3 25.8 MMOL/L (20-26); ABG Oxygen Saturation 99.4 % (95-100); ABG PCO2 34.3 MM HG (35-48); ABG PH 7.469 (7.35-7.45); ABG TCO2 22.3 MMOL/L (23-27)
[2020-05-30] MEDS ORDERED: ACETAMINOPHEN 325 MG TABLET PO PRN (16:01)
[2020-05-30] MEDS ORDERED: MORPHINE 4 MG/1 ML VIAL IV PRN (16:01)
[2020-05-30] MEDS ORDERED: NITROGLYCERIN SL 0.4 MG TABLET SL PRN (16:04)
[2020-05-30] MEDS ORDERED: SODIUM CHLORIDE 0.45% 1,000 ML IV SCH (16:30)
[2020-05-30] MEDS: ENOXAPARIN 40 MG/0.4 ML SYRINGE SUBCUT SCH (18:04)
[2020-05-30] MEDS: DICYCLOMINE 10 MG CAPSULE PO SCH ×2 (18:04→21:44)
[2020-05-30] MEDS: ROSUVASTATIN 20 MG TABLET PO SCH (21:44)
[2020-05-30] MEDS: DOCUSATE SODIUM 100 MG CAPSULE PO SCH (21:44)
[2020-05-30] MEDS: ONDANSETRON 4 MG/2 ML VIAL IV PRN (21:44)
[2020-05-31 06:44] LABS: Risk Ratio 1.98
[2020-05-31] MEDS: DOCUSATE SODIUM 100 MG CAPSULE PO SCH ×2 (08:00→20:55)
[2020-05-31] MEDS: CLOPIDOGREL 75 MG TABLET PO SCH (08:00)
[2020-05-31] MEDS: METOPROLOL SUCCINATE XL 25 MG TABLET PO SCH (08:00)
[2020-05-31] MEDS: DICYCLOMINE 10 MG CAPSULE PO SCH ×4 (08:00→20:55)
[2020-05-31] MEDS: FUROSEMIDE 40 MG/4 ML VIAL IV SCH ×2 (08:00→16:01)
[2020-05-31] MEDS: PANTOPRAZOLE 40 MG TABLET PO SCH (08:01)
[2020-05-31] MEDS: POTASSIUM CHLORIDE 20 MEQ TABLET PO SCH (08:01)
[2020-05-31] MEDS: DIGOXIN 0.125 MG TABLET PO SCH (12:24)
[2020-05-31] MEDS: ENOXAPARIN 40 MG/0.4 ML SYRINGE SUBCUT SCH (17:33)
[2020-05-31] MEDS: ROSUVASTATIN 20 MG TABLET PO SCH (20:55)
[2020-06-01 05:45] LABS: Basophils # 0.1 10*3/uL (0.0-0.2); Eosinophils # 0.2 10*3/uL (0.0-0.87); Hematocrit 29.7 VOL% (35.7-47.0); Hemoglobin 9.8 GM/DL (12.0-16.0); Immature Granulocytes % 0.2 %; Immature Granulocytes Absolute 0.01 #; Lymphocytes # 1.1 10*3/uL (1.4-4.0); Lymphocytes % 21.7 % (21.3-54.2); Mean Corpuscular Volume 87.4 FL (87-102); Mean Platelet Volume 11.3 FL (9.6-12.0); Monocytes % 12.3 % (1.7-12.7); Neutrophils % 60.8 % (38.7-73.9); Platelet Count 191 T/CUMM (130-400); Red Cell Distribution Width 16.6 % (9.3-17.3); White Blood Count 5.2 T/CUMM (4-12)
[2020-06-01 05:51] LABS: Calcium 8.5 MG/DL (8.5-10.1); Osmolality,Calculated 279.4 MOS/KG (273-304); Potassium 3.8 MMOL/L (3.5-5.1)
[2020-06-01] MEDS: DOCUSATE SODIUM 100 MG CAPSULE PO SCH ×2 (09:24→20:48)
[2020-06-01] MEDS: PANTOPRAZOLE 40 MG TABLET PO SCH (09:24)
[2020-06-01] MEDS: DICYCLOMINE 10 MG CAPSULE PO SCH ×4 (09:25→20:47)
[2020-06-01] MEDS: METOPROLOL SUCCINATE XL 25 MG TABLET PO SCH (09:25)
[2020-06-01] MEDS: POTASSIUM CHLORIDE 20 MEQ TABLET PO SCH (09:26)
[2020-06-01] MEDS: CLOPIDOGREL 75 MG TABLET PO SCH (09:26)
[2020-06-01] MEDS: FUROSEMIDE 40 MG/4 ML VIAL IV SCH ×2 (09:30→18:07)
[2020-06-01] MEDS: DIGOXIN 0.125 MG TABLET PO SCH (14:44)
[2020-06-01] MEDS: ENOXAPARIN 40 MG/0.4 ML SYRINGE SUBCUT SCH (18:04)
[2020-06-01] MEDS: ROSUVASTATIN 20 MG TABLET PO SCH (20:48)
[2020-06-02 05:38] LABS: Basophils # 0.1 10*3/uL (0.0-0.2); Eosinophils # 0.2 10*3/uL (0.0-0.87); Eosinophils % 3.7 % (0.00-10.9); Hematocrit 31.4 VOL% (35.7-47.0); Hemoglobin 10.2 GM/DL (12.0-16.0); Immature Granulocytes % 0.2 %; Immature Granulocytes Absolute 0.01 #; Lymphocytes # 1.1 10*3/uL (1.4-4.0); Lymphocytes % 20.9 % (21.3-54.2); Mean Corpuscular HGB Conc 32.5 GM/DL (32-36); Mean Platelet Volume 11.5 FL (9.6-12.0); Monocytes % 13.8 % (1.7-12.7); Neutrophils % 60.4 % (38.7-73.9); Platelet Count 194 T/CUMM (130-400); Red Blood Count 3.57 MC/CUMM (3.8-5.5); Red Cell Distribution Width 16.6 % (9.3-17.3); White Blood Count 5.1 T/CUMM (4-12)
[2020-06-02 06:02] LABS: Calcium 8.5 MG/DL (8.5-10.1); Osmolality,Calculated 274.7 MOS/KG (273-304); Potassium 3.6 MMOL/L (3.5-5.1)
[2020-06-02] MEDS: POTASSIUM CHLORIDE 20 MEQ TABLET PO SCH (10:15)
[2020-06-02] MEDS: CLOPIDOGREL 75 MG TABLET PO SCH (10:16)
[2020-06-02] MEDS: METOPROLOL SUCCINATE XL 25 MG TABLET PO SCH (10:16)
[2020-06-02] MEDS: FUROSEMIDE 40 MG/4 ML VIAL IV SCH ×2 (10:17→21:13)
[2020-06-02] MEDS: PANTOPRAZOLE 40 MG TABLET PO SCH (10:17)
[2020-06-02] MEDS: DICYCLOMINE 10 MG CAPSULE PO SCH ×4 (10:17→21:12)
[2020-06-02] MEDS: DIGOXIN 0.125 MG TABLET PO SCH (14:49)
[2020-06-02] MEDS: SPIRONOLACTONE 25 MG TABLET PO SCH (16:44)
[2020-06-02 17:33] LABS: Troponin I 0.033 NG/ML (0.00-0.045)
[2020-06-02] MEDS: DOCUSATE SODIUM 100 MG CAPSULE PO SCH ×2 (20:27→21:12)
[2020-06-02] MEDS: ENOXAPARIN 40 MG/0.4 ML SYRINGE SUBCUT SCH (20:29)
[2020-06-02] MEDS: ROSUVASTATIN 20 MG TABLET PO SCH (21:12)
[2020-06-03] MEDS: ONDANSETRON 4 MG/2 ML VIAL IV PRN (00:41)
[2020-06-03 05:25] LABS: Basophils % 0.8 % (0.0-0.8); Eosinophils # 0.2 10*3/uL (0.0-0.87); Hematocrit 31.1 VOL% (35.7-47.0); Hemoglobin 9.9 GM/DL (12.0-16.0); Immature Granulocytes % 0.4 %; Immature Granulocytes Absolute 0.02 #; Lymphocytes # 1.2 10*3/uL (1.4-4.0); Lymphocytes % 23.6 % (21.3-54.2); Mean Corpuscular HGB Conc 31.8 GM/DL (32-36); Mean Corpuscular Volume 88.6 FL (87-102); Monocytes % 12.5 % (1.7-12.7); Neutrophils % 59.7 % (38.7-73.9); Platelet Count 199 T/CUMM (130-400); Red Blood Count 3.51 MC/CUMM (3.8-5.5); Red Cell Distribution Width 16.5 % (9.3-17.3)
[2020-06-03 06:03] LABS: Calcium 8.9 MG/DL (8.5-10.1); Osmolality,Calculated 278.4 MOS/KG (273-304); Potassium 3.4 MMOL/L (3.5-5.1)
[2020-06-03] MEDS ORDERED: POTASSIUM CHLORIDE 10 MEQ TABLET PO ONE (08:04)
[2020-06-03] MEDS: DICYCLOMINE 10 MG CAPSULE PO SCH ×4 (09:27→20:23)
[2020-06-03] MEDS: METOPROLOL SUCCINATE XL 25 MG TABLET PO SCH (09:27)
[2020-06-03] MEDS: ASPIRIN EC 81 MG TABLET PO SCH (09:27)
[2020-06-03] MEDS: DOCUSATE SODIUM 100 MG CAPSULE PO SCH ×2 (09:28→20:23)
[2020-06-03] MEDS: SPIRONOLACTONE 25 MG TABLET PO SCH (09:28)
[2020-06-03] MEDS: PANTOPRAZOLE 40 MG TABLET PO SCH (09:28)
[2020-06-03] MEDS: POTASSIUM CHLORIDE 20 MEQ TABLET PO SCH ×2 (09:28→15:25)
[2020-06-03] MEDS: CLOPIDOGREL 75 MG TABLET PO SCH (09:28)
[2020-06-03] MEDS: FUROSEMIDE 40 MG/4 ML VIAL IV SCH ×2 (09:29→17:43)
[2020-06-03] MEDS: DIGOXIN 0.125 MG TABLET PO SCH (13:54)
[2020-06-03] MEDS: ENOXAPARIN 40 MG/0.4 ML SYRINGE SUBCUT SCH (17:44)
[2020-06-03] MEDS: ROSUVASTATIN 20 MG TABLET PO SCH (20:23)
[2020-06-04] MEDS: POTASSIUM CHLORIDE 20 MEQ TABLET PO SCH ×2 (09:59)
[2020-06-04] MEDS: PANTOPRAZOLE 40 MG TABLET PO SCH (09:59)
[2020-06-04] MEDS: ASPIRIN EC 81 MG TABLET PO SCH (09:59)
[2020-06-04] MEDS: DOCUSATE SODIUM 100 MG CAPSULE PO SCH (09:59)
[2020-06-04] MEDS: SPIRONOLACTONE 25 MG TABLET PO SCH (10:00)
[2020-06-04] MEDS: DICYCLOMINE 10 MG CAPSULE PO SCH (10:00)
[2020-06-04] MEDS: CLOPIDOGREL 75 MG TABLET PO SCH (10:00)
[2020-06-04] MEDS: METOPROLOL SUCCINATE XL 25 MG TABLET PO SCH (10:00)
[2020-06-04 11:22] VITALS: BP 73/51
[2020-06-05] MEDS ORDERED: FUROSEMIDE 20 MG TABLET PO SCH (09:00)
[2020-06-05] MEDS ORDERED: POTASSIUM CHLORIDE 10 MEQ TABLET PO SCH (09:00)
== END 2020-06-04 15:10 | disposition home health service (06) | DRG 292 ==
LOC: N.ED 14:00 → N.EDINP 16:01 → N.3E 17:04
PROVIDERS: ADMIT Family Medicine; ATTEND Family Medicine

== ENCOUNTER 2020-06-11 18:03 | Inpatient (IN) ==
[2020-06-11] MEDS ORDERED: FUROSEMIDE 40 MG TABLET PO STA (18:40)
[2020-06-11 19:01] LABS: Calcium 9.1 MG/DL (8.5-10.1); Potassium 4.7 MMOL/L (3.5-5.1)
[2020-06-11 19:04] LABS: Basophils % 0.5 % (0.0-0.8); Eosinophils # 0.2 10*3/uL (0.0-0.87); Eosinophils % 3.2 % (0.00-10.9); Hematocrit 36.9 VOL% (35.7-47.0); Hemoglobin 11.5 GM/DL (12.0-16.0); Immature Granulocytes % 0.3 %; Immature Granulocytes Absolute 0.02 #; Mean Corpuscular HGB Conc 31.2 GM/DL (32-36); Mean Corpuscular Volume 90.4 FL (87-102); Monocytes % 8.8 % (1.7-12.7); Neutrophils % 71.2 % (38.7-73.9); Platelet Count 208 T/CUMM (130-400); Red Blood Count 4.08 MC/CUMM (3.8-5.5); White Blood Count 5.9 T/CUMM (4-12)
[2020-06-11] MEDS ORDERED: SODIUM CHLORIDE 0.9% 500 ML IV STA (20:15)
[2020-06-11] MEDS ORDERED: METOPROLOL TARTRATE 5 MG/5 ML VIAL IV STA (20:15)
[2020-06-11 21:07] LABS: INR 1.3; PT Patient Result 13.8 SECS (9.8-11.9); Partial Thromboplastin Time 41.9 SECS (23.9-33.8)
[2020-06-11] MEDS ORDERED: LORazepam 2 MG/1 ML VIAL IV STA (21:14)
[2020-06-11] MEDS ORDERED: FUROSEMIDE 20 MG/2 ML VIAL IV STA (21:21)
[2020-06-11] MEDS ORDERED: ACETAMINOPHEN 500 MG TABLET PO PRN (21:26)
[2020-06-11] MEDS ORDERED: ONDANSETRON 4 MG/2 ML VIAL IV PRN (21:26)
[2020-06-11] MEDS ORDERED: cefTRIAXone 1,000 MG in SODIUM CHLORIDE 0.9% 100 ML IV STA (21:44)
[2020-06-11] MEDS ORDERED: AZITHROMYCIN INJ 500 MG in SODIUM CHLORIDE 0.9% 250 ML IV STA (21:44)
[2020-06-12] MEDS ORDERED: NITROGLYCERIN SL 0.4 MG TABLET SL PRN (07:23)
[2020-06-12] MEDS ORDERED: FUROSEMIDE 20 MG TABLET PO SCH (09:00)
[2020-06-12] MEDS: CLOPIDOGREL 75 MG TABLET PO SCH (09:12)
[2020-06-12] MEDS: ASPIRIN EC 81 MG TABLET PO SCH (09:12)
[2020-06-12] MEDS: DICYCLOMINE 10 MG CAPSULE PO SCH ×4 (09:12→20:48)
[2020-06-12] MEDS: PANTOPRAZOLE 40 MG TABLET PO SCH (09:14)
[2020-06-12] MEDS: SPIRONOLACTONE 25 MG TABLET PO SCH (09:23)
[2020-06-12] MEDS: METOPROLOL SUCCINATE XL 25 MG TABLET PO SCH (09:23)
[2020-06-12] MEDS: DIGOXIN 0.125 MG TABLET PO SCH (12:19)
[2020-06-12] MEDS: FUROSEMIDE 40 MG/4 ML VIAL IV SCH (13:32)
[2020-06-12] MEDS: ROSUVASTATIN 20 MG TABLET PO SCH (20:47)
[2020-06-13] MEDS: METOPROLOL SUCCINATE XL 25 MG TABLET PO SCH (08:53)
[2020-06-13] MEDS: FUROSEMIDE 40 MG/4 ML VIAL IV SCH ×2 (08:54→16:42)
[2020-06-13] MEDS: SPIRONOLACTONE 25 MG TABLET PO SCH (08:54)
[2020-06-13 09:36] LABS: Basophils % 0.7 % (0.0-0.8); Eosinophils # 0.2 10*3/uL (0.0-0.87); Eosinophils % 2.8 % (0.00-10.9); Hematocrit 30.8 VOL% (35.7-47.0); Hemoglobin 10.2 GM/DL (12.0-16.0); Immature Granulocytes % 0.3 %; Immature Granulocytes Absolute 0.02 #; Lymphocytes # 1.1 10*3/uL (1.4-4.0); Lymphocytes % 18.1 % (21.3-54.2); Mean Corpuscular HGB Conc 33.1 GM/DL (32-36); Mean Corpuscular Volume 86.3 FL (87-102); Mean Platelet Volume 11.3 FL (9.6-12.0); Monocytes % 15.4 % (1.7-12.7); Neutrophils % 62.7 % (38.7-73.9); Platelet Count 159 T/CUMM (130-400); Red Blood Count 3.57 MC/CUMM (3.8-5.5); Red Cell Distribution Width 16.4 % (9.3-17.3); White Blood Count 5.8 T/CUMM (4-12)
[2020-06-13] MEDS: ASPIRIN EC 81 MG TABLET PO SCH (09:41)
[2020-06-13] MEDS: CLOPIDOGREL 75 MG TABLET PO SCH (09:42)
[2020-06-13] MEDS: DICYCLOMINE 10 MG CAPSULE PO SCH ×4 (09:42→22:27)
[2020-06-13] MEDS: PANTOPRAZOLE 40 MG TABLET PO SCH (09:42)
[2020-06-13 10:04] LABS: Calcium 8.8 MG/DL (8.5-10.1); Potassium 3.5 MMOL/L (3.5-5.1)
[2020-06-13] MEDS: DIGOXIN 0.125 MG TABLET PO SCH (12:49)
[2020-06-13] MEDS: ROSUVASTATIN 20 MG TABLET PO SCH (22:27)
[2020-06-14 05:45] LABS: Basophils % 0.7 % (0.0-0.8); Eosinophils # 0.2 10*3/uL (0.0-0.87); Eosinophils % 3.9 % (0.00-10.9); Hematocrit 30.2 VOL% (35.7-47.0); Hemoglobin 9.9 GM/DL (12.0-16.0); Immature Granulocytes % 0.4 %; Immature Granulocytes Absolute 0.02 #; Lymphocytes # 1.2 10*3/uL (1.4-4.0); Lymphocytes % 21.8 % (21.3-54.2); Mean Corpuscular HGB Conc 32.8 GM/DL (32-36); Mean Corpuscular Volume 86.5 FL (87-102); Mean Platelet Volume 12.2 FL (9.6-12.0); Monocytes % 15.6 % (1.7-12.7); Neutrophils % 57.6 % (38.7-73.9); Platelet Count 158 T/CUMM (130-400); Red Blood Count 3.49 MC/CUMM (3.8-5.5); Red Cell Distribution Width 16.3 % (9.3-17.3); White Blood Count 5.4 T/CUMM (4-12)
[2020-06-14 06:13] LABS: Band Neutrophils 1 % (0-10); Eosinophils 4 % (0-10); Lymphocytes 25 % (20-55); Platelet Estimate Normal; Segmented Neutrophils 56 % (50-85); Total Cells Counted 100
[2020-06-14 06:14] LABS: Anisocytosis 1+; Hypochromasia Slight; Macrocytosis 1+; Ovalocytes Few; Target Cells Few
[2020-06-14 06:15] LABS: Calcium 8.5 MG/DL (8.5-10.1); Osmolality,Calculated 280.3 MOS/KG (273-304); Potassium 3.2 MMOL/L (3.5-5.1)
[2020-06-14] MEDS: PANTOPRAZOLE 40 MG TABLET PO SCH (09:43)
[2020-06-14] MEDS: FUROSEMIDE 40 MG/4 ML VIAL IV SCH ×2 (09:43→17:15)
[2020-06-14] MEDS: METOPROLOL SUCCINATE XL 25 MG TABLET PO SCH (09:44)
[2020-06-14] MEDS: CLOPIDOGREL 75 MG TABLET PO SCH (09:44)
[2020-06-14] MEDS: DICYCLOMINE 10 MG CAPSULE PO SCH ×4 (09:44→20:00)
[2020-06-14] MEDS: ASPIRIN EC 81 MG TABLET PO SCH (09:44)
[2020-06-14] MEDS: SPIRONOLACTONE 25 MG TABLET PO SCH (09:44)
[2020-06-14] MEDS: POTASSIUM CHLORIDE 20 MEQ TABLET PO PRN ×4 (11:10→17:16)
[2020-06-14] MEDS: DIGOXIN 0.125 MG TABLET PO SCH (13:02)
[2020-06-14] MEDS ORDERED: ALUM/MAG/SIMETH/LIDO VISC 1:1 30 ML BOTTLE PO ONE (18:17)
[2020-06-14] MEDS: ROSUVASTATIN 20 MG TABLET PO SCH (20:00)
[2020-06-14] MEDS: LEVALBUTEROL 1.25 MG/3 ML NEB RESP TX SCH (20:24)
[2020-06-15] MEDS: LEVALBUTEROL 1.25 MG/3 ML NEB RESP TX SCH ×4 (00:39→19:23)
[2020-06-15 06:26] LABS: Basophils % 0.6 % (0.0-0.8); Eosinophils # 0.1 10*3/uL (0.0-0.87); Hematocrit 37.4 VOL% (35.7-47.0); Hemoglobin 11.8 GM/DL (12.0-16.0); Immature Granulocytes % 0.2 %; Immature Granulocytes Absolute 0.01 #; Lymphocytes # 1.1 10*3/uL (1.4-4.0); Lymphocytes % 21.9 % (21.3-54.2); Mean Corpuscular HGB Conc 31.6 GM/DL (32-36); Mean Corpuscular Volume 90.1 FL (87-102); Mean Platelet Volume 12.3 FL (9.6-12.0); Monocytes % 12.8 % (1.7-12.7); Neutrophils % 63.5 % (38.7-73.9); Platelet Count 114 T/CUMM (130-400); Red Blood Count 4.15 MC/CUMM (3.8-5.5); Red Cell Distribution Width 16.9 % (9.3-17.3); White Blood Count 4.8 T/CUMM (4-12)
[2020-06-15 06:29] LABS: Lymphocytes 25 % (20-55); Segmented Neutrophils 73 % (50-85); Total Cells Counted 100
[2020-06-15 06:30] LABS: Platelet Estimate Normal
[2020-06-15 06:33] LABS: Calcium 8.5 MG/DL (8.5-10.1); Osmolality,Calculated 269.2 MOS/KG (273-304); Potassium 3.6 MMOL/L (3.5-5.1)
[2020-06-15] MEDS: CLOPIDOGREL 75 MG TABLET PO SCH (09:07)
[2020-06-15] MEDS: ASPIRIN EC 81 MG TABLET PO SCH (09:07)
[2020-06-15] MEDS: PANTOPRAZOLE 40 MG TABLET PO SCH (09:07)
[2020-06-15] MEDS: DICYCLOMINE 10 MG CAPSULE PO SCH ×4 (09:07→20:08)
[2020-06-15] MEDS: FUROSEMIDE 40 MG/4 ML VIAL IV SCH ×2 (09:07→16:02)
[2020-06-15] MEDS: SPIRONOLACTONE 25 MG TABLET PO SCH (09:08)
[2020-06-15] MEDS: METOPROLOL SUCCINATE XL 25 MG TABLET PO SCH (09:08)
[2020-06-15] MEDS: DIGOXIN 0.125 MG TABLET PO SCH (13:19)
[2020-06-15] MEDS: ROSUVASTATIN 20 MG TABLET PO SCH (20:08)
[2020-06-16] MEDS: LEVALBUTEROL 1.25 MG/3 ML NEB RESP TX SCH ×4 (00:32→18:28)
[2020-06-16 05:55] LABS: Basophils # 0.1 10*3/uL (0.0-0.2); Basophils % 0.9 % (0.0-0.8); Eosinophils # 0.2 10*3/uL (0.0-0.87); Hematocrit 28.9 VOL% (35.7-47.0); Hemoglobin 9.7 GM/DL (12.0-16.0); Immature Granulocytes % 0.3 %; Immature Granulocytes Absolute 0.02 #; Lymphocytes # 1.3 10*3/uL (1.4-4.0); Lymphocytes % 22.7 % (21.3-54.2); Mean Corpuscular HGB Conc 33.6 GM/DL (32-36); Mean Corpuscular Volume 85.8 FL (87-102); Mean Platelet Volume 11.8 FL (9.6-12.0); Monocytes % 12.6 % (1.7-12.7); Neutrophils % 60.5 % (38.7-73.9); Platelet Count 162 T/CUMM (130-400); Red Blood Count 3.37 MC/CUMM (3.8-5.5); Red Cell Distribution Width 16.1 % (9.3-17.3); White Blood Count 5.7 T/CUMM (4-12)
[2020-06-16 06:24] LABS: Calcium 8.8 MG/DL (8.5-10.1); Osmolality,Calculated 279.4 MOS/KG (273-304)
[2020-06-16] MEDS: SPIRONOLACTONE 25 MG TABLET PO SCH (08:44)
[2020-06-16] MEDS: DICYCLOMINE 10 MG CAPSULE PO SCH ×4 (08:44→22:16)
[2020-06-16] MEDS: FUROSEMIDE 40 MG/4 ML VIAL IV SCH (08:44)
[2020-06-16] MEDS: CLOPIDOGREL 75 MG TABLET PO SCH (08:44)
[2020-06-16] MEDS: ASPIRIN EC 81 MG TABLET PO SCH (08:45)
[2020-06-16] MEDS: PANTOPRAZOLE 40 MG TABLET PO SCH (08:45)
[2020-06-16] MEDS: METOPROLOL SUCCINATE XL 25 MG TABLET PO SCH (10:09)
[2020-06-16] MEDS: POTASSIUM CHLORIDE 20 MEQ TABLET PO PRN ×2 (12:45→16:33)
[2020-06-16] MEDS: DIGOXIN 0.125 MG TABLET PO SCH (12:46)
[2020-06-16] MEDS: FUROSEMIDE 40 MG TABLET PO SCH (16:33)
[2020-06-16] MEDS: ROSUVASTATIN 20 MG TABLET PO SCH (22:16)
[2020-06-17] MEDS: LEVALBUTEROL 1.25 MG/3 ML NEB RESP TX SCH ×3 (00:51→13:55)
[2020-06-17 06:34] LABS: Basophils % 0.8 % (0.0-0.8); Eosinophils # 0.2 10*3/uL (0.0-0.87); Eosinophils % 3.8 % (0.00-10.9); Hemoglobin 9.9 GM/DL (12.0-16.0); Immature Granulocytes % 0.4 %; Immature Granulocytes Absolute 0.02 #; Lymphocytes # 1.3 10*3/uL (1.4-4.0); Lymphocytes % 24.4 % (21.3-54.2); Mean Corpuscular Volume 85.5 FL (87-102); Mean Platelet Volume 11.8 FL (9.6-12.0); Neutrophils % 57.6 % (38.7-73.9); Platelet Count 179 T/CUMM (130-400); Red Blood Count 3.51 MC/CUMM (3.8-5.5); Red Cell Distribution Width 15.9 % (9.3-17.3); White Blood Count 5.3 T/CUMM (4-12)
[2020-06-17 07:06] LABS: Calcium 8.9 MG/DL (8.5-10.1)
[2020-06-17 07:07] LABS: Osmolality,Calculated 273.8 MOS/KG (273-304); Potassium 3.4 MMOL/L (3.5-5.1)
[2020-06-17] MEDS: METOPROLOL SUCCINATE XL 25 MG TABLET PO SCH (09:30)
[2020-06-17] MEDS: ASPIRIN EC 81 MG TABLET PO SCH (09:31)
[2020-06-17] MEDS: FUROSEMIDE 40 MG TABLET PO SCH ×2 (09:31→15:39)
[2020-06-17] MEDS: PANTOPRAZOLE 40 MG TABLET PO SCH (09:31)
[2020-06-17] MEDS: CLOPIDOGREL 75 MG TABLET PO SCH (09:31)
[2020-06-17] MEDS: POTASSIUM CHLORIDE 20 MEQ TABLET PO PRN ×3 (09:31→16:54)
[2020-06-17] MEDS: SPIRONOLACTONE 25 MG TABLET PO SCH (09:31)
[2020-06-17] MEDS: DICYCLOMINE 10 MG CAPSULE PO SCH ×2 (09:32→14:17)
[2020-06-17 11:57] VITALS: BP 86/62
[2020-06-17] MEDS: DIGOXIN 0.125 MG TABLET PO SCH (14:17)
[2020-06-17] MEDS ORDERED: DICLOFENAC 1% GEL 100 GM TUBE TOP SCH (15:00)
== END 2020-06-17 16:46 | disposition home health service (06) | DRG 292 ==
LOC: N.EDINP 18:03 → N.ED 18:03 → N.TELEN 22:26
PROVIDERS: ADMIT Family Medicine; ATTEND Family Medicine

== ENCOUNTER 2020-06-30 17:55 | Inpatient (IN) ==
[2020-06-30 18:59] LABS: Basophils % 0.7 % (0.0-0.8); Eosinophils % 0.7 % (0.00-10.9); Hematocrit 34.7 VOL% (35.7-47.0); Hemoglobin 11.1 GM/DL (12.0-16.0); Immature Granulocytes % 0.4 %; Immature Granulocytes Absolute 0.02 #; Lymphocytes # 1.1 10*3/uL (1.4-4.0); Lymphocytes % 19.5 % (21.3-54.2); Mean Corpuscular Volume 87.4 FL (87-102); Mean Platelet Volume 11.8 FL (9.6-12.0); Monocytes % 10.8 % (1.7-12.7); Neutrophils % 67.9 % (38.7-73.9); Platelet Count 176 T/CUMM (130-400); Red Blood Count 3.97 MC/CUMM (3.8-5.5); Red Cell Distribution Width 15.9 % (9.3-17.3); White Blood Count 5.6 T/CUMM (4-12)
[2020-06-30 19:23] LABS: Albumin 3.2 G/DL (3.4-5.0); Bilirubin,Total 1.2 MG/DL (0.2-1.0); Calcium 9.1 MG/DL (8.5-10.1); Osmolality,Calculated 283.7 MOS/KG (273-304); Potassium 4.7 MMOL/L (3.5-5.1)
[2020-06-30] MEDS ORDERED: ONDANSETRON 4 MG/2 ML VIAL IV PRN (20:10)
[2020-06-30] MEDS ORDERED: HEPARIN DRIP 25,000 UNITS/500 ML PREMIX IV SCH (20:30)
[2020-06-30 20:36] LABS: INR 1.3; PT Patient Result 13.8 SECS (9.8-11.9); Partial Thromboplastin Time 34.7 SECS (23.9-33.8)
[2020-06-30] MEDS: HEPARIN DRIP 25,000 UNITS/500 ML PREMIX IV SCH (21:11)
[2020-07-01 04:08] LABS: INR 1.4; PT Patient Result 14.4 SECS (9.8-11.9)
[2020-07-01 04:22] LABS: Basophils # 0.1 10*3/uL (0.0-0.2); Basophils % 0.9 % (0.0-0.8); Eosinophils # 0.1 10*3/uL (0.0-0.87); Eosinophils % 0.9 % (0.00-10.9); Hematocrit 34.2 VOL% (35.7-47.0); Immature Granulocytes % 0.2 %; Immature Granulocytes Absolute 0.01 #; Lymphocytes # 1.6 10*3/uL (1.4-4.0); Lymphocytes % 27.7 % (21.3-54.2); Mean Corpuscular HGB Conc 32.2 GM/DL (32-36); Mean Corpuscular Volume 85.9 FL (87-102); Mean Platelet Volume 12.3 FL (9.6-12.0); Monocytes % 10.3 % (1.7-12.7); Platelet Count 161 T/CUMM (130-400); Red Blood Count 3.98 MC/CUMM (3.8-5.5); Red Cell Distribution Width 15.8 % (9.3-17.3); White Blood Count 5.7 T/CUMM (4-12)
[2020-07-01 04:44] LABS: Hypochromasia 1+
[2020-07-01 04:45] LABS: Anisocytosis 1+; Microcytosis 1+; Ovalocytes Slight; Platelet Estimate Adequate
[2020-07-01 04:46] LABS: Bilirubin,Total 1.2 MG/DL (0.2-1.0); Calcium 9.1 MG/DL (8.5-10.1); Osmolality,Calculated 278.1 MOS/KG (273-304); Potassium 4.5 MMOL/L (3.5-5.1); Total Protein 7.6 G/DL (6.4-8.3)
[2020-07-01] MEDS ORDERED: PANTOPRAZOLE 40 MG TABLET PO ONE ×2 (09:41)
[2020-07-01 09:46] LABS: INR 1.3; PT Patient Result 13.9 SECS (9.8-11.9)
[2020-07-01] MEDS: PANTOPRAZOLE 40 MG TABLET PO SCH (09:50)
[2020-07-01] MEDS ORDERED: NITROGLYCERIN SL 0.4 MG TABLET SL PRN (10:41)
[2020-07-01] MEDS ORDERED: CLOPIDOGREL 75 MG TABLET PO SCH (11:00)
[2020-07-01] MEDS ORDERED: FUROSEMIDE 40 MG TABLET ONE (13:17)
[2020-07-01] MEDS ORDERED: DIGOXIN 0.125 MG TABLET ONE (13:17)
[2020-07-01] MEDS: FUROSEMIDE 40 MG TABLET PO SCH ×2 (13:19→21:01)
[2020-07-01] MEDS: DIGOXIN 0.125 MG TABLET PO SCH (13:20)
[2020-07-01] MEDS ORDERED: ALBUTEROL/IPRATROPIUM 3 ML NEB RESP TX PRN (15:48)
[2020-07-01 16:24] LABS: INR 1.4; PT Patient Result 14.4 SECS (9.8-11.9)
[2020-07-01] MEDS: ROSUVASTATIN 20 MG TABLET PO SCH (21:01)
[2020-07-01 21:34] LABS: INR 1.3; PT Patient Result 13.5 SECS (9.8-11.9)
[2020-07-01] MEDS ORDERED: HEPARIN 5,000 UNIT/1 ML VIAL IV PRN (23:03)
[2020-07-02] MEDS: HEPARIN DRIP 25,000 UNITS/500 ML PREMIX IV SCH (01:46)
[2020-07-02 06:01] LABS: Basophils # 0.1 10*3/uL (0.0-0.2); Basophils % 1.1 % (0.0-0.8); Eosinophils # 0.1 10*3/uL (0.0-0.87); Eosinophils % 2.4 % (0.00-10.9); Hematocrit 32.1 VOL% (35.7-47.0); Hemoglobin 10.4 GM/DL (12.0-16.0); Immature Granulocytes % 0.4 %; Immature Granulocytes Absolute 0.02 #; Lymphocytes # 1.4 10*3/uL (1.4-4.0); Lymphocytes % 26.6 % (21.3-54.2); Mean Corpuscular HGB Conc 32.4 GM/DL (32-36); Mean Corpuscular Volume 85.1 FL (87-102); Mean Platelet Volume 12.5 FL (9.6-12.0); Monocytes % 11.6 % (1.7-12.7); Neutrophils % 57.9 % (38.7-73.9); Platelet Count 159 T/CUMM (130-400); Red Blood Count 3.77 MC/CUMM (3.8-5.5); Red Cell Distribution Width 15.9 % (9.3-17.3); White Blood Count 5.3 T/CUMM (4-12)
[2020-07-02 06:16] LABS: Calcium 8.7 MG/DL (8.5-10.1); Osmolality,Calculated 274.1 MOS/KG (273-304); Potassium 3.8 MMOL/L (3.5-5.1)
[2020-07-02 07:04] LABS: Atypical Lymphocytes Few; Band Neutrophils 1 % (0-10); Eosinophils 7 % (0-10); Lymphocytes 23 % (20-55); Segmented Neutrophils 61 % (50-85); Total Cells Counted 100
[2020-07-02 07:05] LABS: Hypochromasia 2+; Microcytosis 1+; Target Cells Slight
[2020-07-02 07:06] LABS: Ovalocytes Slight; Platelet Estimate Adequate
[2020-07-02] MEDS: ASPIRIN EC 81 MG TABLET PO SCH (08:31)
[2020-07-02] MEDS: POTASSIUM CHLORIDE 20 MEQ TABLET PO SCH (08:31)
[2020-07-02] MEDS: PANTOPRAZOLE 40 MG TABLET PO SCH (08:31)
[2020-07-02] MEDS: SPIRONOLACTONE 25 MG TABLET PO SCH (08:32)
[2020-07-02] MEDS: METOPROLOL SUCCINATE XL 25 MG TABLET PO SCH (08:32)
[2020-07-02] MEDS: FUROSEMIDE 40 MG/4 ML VIAL IV SCH ×2 (10:14→16:38)
[2020-07-02] MEDS: DIGOXIN 0.125 MG TABLET PO SCH (14:07)
[2020-07-02] MEDS: ROSUVASTATIN 20 MG TABLET PO SCH (20:55)
[2020-07-03] MEDS: HEPARIN DRIP 25,000 UNITS/500 ML PREMIX IV SCH ×3 (01:25→19:55)
[2020-07-03 01:44] LABS: Basophils # 0.1 10*3/uL (0.0-0.2); Eosinophils # 0.2 10*3/uL (0.0-0.87); Hematocrit 31.6 VOL% (35.7-47.0); Hemoglobin 10.2 GM/DL (12.0-16.0); Immature Granulocytes % 0.2 %; Immature Granulocytes Absolute 0.01 #; Lymphocytes # 1.5 10*3/uL (1.4-4.0); Mean Corpuscular HGB Conc 32.3 GM/DL (32-36); Mean Corpuscular Volume 86.8 FL (87-102); Mean Platelet Volume 12.1 FL (9.6-12.0); Monocytes % 11.5 % (1.7-12.7); Neutrophils % 53.3 % (38.7-73.9); Platelet Count 165 T/CUMM (130-400); Red Blood Count 3.64 MC/CUMM (3.8-5.5); Red Cell Distribution Width 15.9 % (9.3-17.3)
[2020-07-03 02:03] LABS: Calcium 8.4 MG/DL (8.5-10.1); Osmolality,Calculated 275.8 MOS/KG (273-304); Potassium 3.7 MMOL/L (3.5-5.1)
[2020-07-03 03:14] LABS: Hypochromasia 2+; Platelet Estimate Normal
[2020-07-03] MEDS: ASPIRIN EC 81 MG TABLET PO SCH (08:02)
[2020-07-03] MEDS: PANTOPRAZOLE 40 MG TABLET PO SCH (08:02)
[2020-07-03] MEDS: POTASSIUM CHLORIDE 20 MEQ TABLET PO SCH (08:02)
[2020-07-03] MEDS: FUROSEMIDE 40 MG/4 ML VIAL IV SCH ×2 (08:03→16:35)
[2020-07-03] MEDS: METOPROLOL SUCCINATE XL 25 MG TABLET PO SCH (08:11)
[2020-07-03] MEDS: SPIRONOLACTONE 25 MG TABLET PO SCH (08:11)
[2020-07-03] MEDS: DIGOXIN 0.125 MG TABLET PO SCH (14:09)
[2020-07-03] MEDS: ROSUVASTATIN 20 MG TABLET PO SCH (21:19)
[2020-07-04] MEDS: ASPIRIN EC 81 MG TABLET PO SCH (08:51)
[2020-07-04] MEDS: METOPROLOL SUCCINATE XL 25 MG TABLET PO SCH (08:51)
[2020-07-04] MEDS: PANTOPRAZOLE 40 MG TABLET PO SCH (08:51)
[2020-07-04] MEDS: SPIRONOLACTONE 25 MG TABLET PO SCH (08:52)
[2020-07-04] MEDS: POTASSIUM CHLORIDE 20 MEQ TABLET PO SCH (08:52)
[2020-07-04] MEDS: FUROSEMIDE 40 MG/4 ML VIAL IV SCH (08:54)
[2020-07-04 08:57] LABS: Basophils # 0.1 10*3/uL (0.0-0.2); Basophils % 0.9 % (0.0-0.8); Eosinophils # 0.2 10*3/uL (0.0-0.87); Eosinophils % 2.9 % (0.00-10.9); Hematocrit 31.5 VOL% (35.7-47.0); Hemoglobin 9.9 GM/DL (12.0-16.0); Immature Granulocytes % 0.4 %; Immature Granulocytes Absolute 0.02 #; Lymphocytes # 1.5 10*3/uL (1.4-4.0); Lymphocytes % 27.3 % (21.3-54.2); Mean Corpuscular HGB Conc 31.4 GM/DL (32-36); Mean Corpuscular Volume 87.3 FL (87-102); Mean Platelet Volume 11.9 FL (9.6-12.0); Monocytes % 14.9 % (1.7-12.7); Neutrophils % 53.6 % (38.7-73.9); Platelet Count 166 T/CUMM (130-400); Red Blood Count 3.61 MC/CUMM (3.8-5.5); White Blood Count 5.6 T/CUMM (4-12)
[2020-07-04 09:22] LABS: Calcium 8.7 MG/DL (8.5-10.1); Osmolality,Calculated 274.8 MOS/KG (273-304); Potassium 4.2 MMOL/L (3.5-5.1)
[2020-07-04 09:30] LABS: Band Neutrophils 1 % (0-10); Eosinophils 10 % (0-10); Lymphocytes 25 % (20-55); Platelet Estimate Normal; Segmented Neutrophils 48 % (50-85); Total Cells Counted 100
[2020-07-04 09:31] LABS: Anisocytosis 1+; Burr Cells Few
[2020-07-04 09:32] LABS: Hypochromasia Slight
[2020-07-04] MEDS: DIGOXIN 0.125 MG TABLET PO SCH (13:56)
[2020-07-04] MEDS: FUROSEMIDE 40 MG TABLET PO SCH (16:17)
[2020-07-04] MEDS: ROSUVASTATIN 20 MG TABLET PO SCH (22:14)
[2020-07-04] MEDS: ENOXAPARIN 40 MG/0.4 ML SYRINGE SUBCUT SCH (22:17)
[2020-07-05 05:53] LABS: Basophils % 0.7 % (0.0-0.8); Eosinophils # 0.1 10*3/uL (0.0-0.87); Eosinophils % 2.6 % (0.00-10.9); Hematocrit 32.2 VOL% (35.7-47.0); Hemoglobin 10.3 GM/DL (12.0-16.0); Immature Granulocytes % 0.2 %; Immature Granulocytes Absolute 0.01 #; Lymphocytes # 1.5 10*3/uL (1.4-4.0); Lymphocytes % 27.1 % (21.3-54.2); Mean Platelet Volume 11.8 FL (9.6-12.0); Monocytes % 12.4 % (1.7-12.7); Platelet Count 168 T/CUMM (130-400); White Blood Count 5.4 T/CUMM (4-12)
[2020-07-05 06:13] LABS: Calcium 8.7 MG/DL (8.5-10.1); Osmolality,Calculated 277.7 MOS/KG (273-304)
[2020-07-05 06:18] LABS: Eosinophils 2 % (0-10); Hypochromasia 1+; Lymphocytes 29 % (20-55); Microcytosis 1+; Segmented Neutrophils 50 % (50-85); Total Cells Counted 100
[2020-07-05 06:19] LABS: Ovalocytes Slight
[2020-07-05 06:20] LABS: Target Cells Slight
[2020-07-05 06:21] LABS: Platelet Estimate Adequate
[2020-07-05] MEDS ORDERED: METOPROLOL SUCCINATE XL 25 MG TABLET PO SCH (09:56)
[2020-07-05] MEDS: METOPROLOL SUCCINATE XL 25 MG TABLET PO SCH (09:59)
[2020-07-05] MEDS: SPIRONOLACTONE 25 MG TABLET PO SCH (10:00)
[2020-07-05] MEDS: ASPIRIN EC 81 MG TABLET PO SCH (10:09)
[2020-07-05] MEDS: FUROSEMIDE 40 MG TABLET PO SCH ×2 (10:09→15:59)
[2020-07-05] MEDS: POTASSIUM CHLORIDE 20 MEQ TABLET PO SCH (10:10)
[2020-07-05] MEDS: PANTOPRAZOLE 40 MG TABLET PO SCH (10:10)
[2020-07-05] MEDS: DIGOXIN 0.125 MG TABLET PO SCH (12:52)
[2020-07-05] MEDS: CLOPIDOGREL 75 MG TABLET PO SCH (12:52)
[2020-07-05] MEDS ORDERED: SODIUM CHLORIDE 0.45% 250 ML IV ONE (13:05)
[2020-07-05] MEDS: ACETAMINOPHEN 325 MG TABLET PO PRN (13:19)
[2020-07-05] MEDS: ENOXAPARIN 40 MG/0.4 ML SYRINGE SUBCUT SCH (21:55)
[2020-07-05] MEDS: ROSUVASTATIN 20 MG TABLET PO SCH (21:55)
[2020-07-06] MEDS: FUROSEMIDE 40 MG TABLET PO SCH ×2 (08:20→17:03)
[2020-07-06] MEDS: ACETAMINOPHEN 325 MG TABLET PO PRN (08:20)
[2020-07-06] MEDS: CLOPIDOGREL 75 MG TABLET PO SCH (08:20)
[2020-07-06] MEDS: ASPIRIN EC 81 MG TABLET PO SCH (08:20)
[2020-07-06] MEDS: POTASSIUM CHLORIDE 20 MEQ TABLET PO SCH (08:20)
[2020-07-06] MEDS: PANTOPRAZOLE 40 MG TABLET PO SCH (08:20)
[2020-07-06] MEDS ORDERED: METOPROLOL SUCCINATE XL 25 MG TABLET PO SCH (09:00)
[2020-07-06] MEDS ORDERED: SPIRONOLACTONE 25 MG TABLET PO SCH (09:00)
[2020-07-06] MEDS: DIGOXIN 0.125 MG TABLET PO SCH (13:14)
[2020-07-06 16:34] VITALS: BP 122/64
[2020-07-06] MEDS ORDERED: RIVAROXABAN 2.5 MG TABLET PO SCH (21:00)
== END 2020-07-06 18:00 | disposition home health service (06) | DRG 299 ==
LOC: N.ED 17:55 → N.EDINP 17:55 → N.TELEN 07-01 14:23
PROVIDERS: ADMIT Family Medicine; ATTEND Family Medicine

== ENCOUNTER 2020-08-05 04:36 | Inpatient (IN) ==
[2020-08-05] MEDS ORDERED: MORPHINE 4 MG/1 ML VIAL IV STA (04:52)
[2020-08-05] MEDS ORDERED: FUROSEMIDE 40 MG/4 ML VIAL IV STA (04:52)
[2020-08-05] MEDS ORDERED: ONDANSETRON 4 MG/2 ML VIAL IV STA (04:52)
[2020-08-05 05:21] LABS: Basophils % 0.7 % (0.0-0.8); Eosinophils % 0.2 % (0.00-10.9); Hematocrit 39.5 VOL% (35.7-47.0); Hemoglobin 12.5 GM/DL (12.0-16.0); Immature Granulocytes % 0.5 %; Immature Granulocytes Absolute 0.03 #; Lymphocytes # 1.1 10*3/uL (1.4-4.0); Lymphocytes % 18.3 % (21.3-54.2); Mean Corpuscular HGB Conc 31.6 GM/DL (32-36); Mean Corpuscular Volume 84.8 FL (87-102); Mean Platelet Volume 11.3 FL (9.6-12.0); Monocytes % 7.4 % (1.7-12.7); Neutrophils % 72.9 % (38.7-73.9); Platelet Count 214 T/CUMM (130-400); Red Blood Count 4.66 MC/CUMM (3.8-5.5); Red Cell Distribution Width 15.9 % (9.3-17.3); White Blood Count 6.1 T/CUMM (4-12)
[2020-08-05 05:33] LABS: INR 1.5; PT Patient Result 16.1 SECS (9.8-11.9)
[2020-08-05 05:44] LABS: Albumin 3.3 G/DL (3.4-5.0); Bilirubin,Total 2.8 MG/DL (0.2-1.0); Calcium 8.8 MG/DL (8.5-10.1); Osmolality,Calculated 274.1 MOS/KG (273-304); Potassium 4.6 MMOL/L (3.5-5.1); Total Protein 7.6 G/DL (6.4-8.2)
[2020-08-05] MEDS ORDERED: SODIUM CHLORIDE 0.9% 500 ML IV STA (06:05)
[2020-08-05] MEDS ORDERED: MORPHINE 4 MG/1 ML VIAL IV PRN ×3 (07:27→13:50)
[2020-08-05] MEDS ORDERED: ONDANSETRON 4 MG/2 ML VIAL IV PRN (07:27)
[2020-08-05] MEDS ORDERED: SODIUM CHLORIDE 0.9% 1,000 ML IV SCH (07:27)
[2020-08-05] MEDS ORDERED: ALBUTEROL/IPRATROPIUM 3 ML NEB RESP TX PRN (07:27)
[2020-08-05] MEDS: CLINDAMYCIN INJ 600 MG in PREMIX 1 EACH IV SCH ×3 (07:56→22:43)
[2020-08-05] MEDS ORDERED: PANTOPRAZOLE 40 MG TABLET PO SCH (09:00)
[2020-08-05] MEDS ORDERED: propofoL 200 MG/20 ML VIAL IV ONE (09:51)
[2020-08-05] MEDS ORDERED: KETOROLAC 30 MG/1 ML VIAL ONE (09:55)
[2020-08-05] MEDS ORDERED: KETOROLAC 30 MG/1 ML VIAL IV STA (10:21)
[2020-08-05] MEDS ORDERED: LEVALBUTEROL TARTRATE INH PRN (11:09)
[2020-08-05] MEDS ORDERED: NITROGLYCERIN SL 0.4 MG TABLET SL PRN (11:09)
[2020-08-05] MEDS ORDERED: NON-FORMULARY MEDICATION (Acetaminophen [Tylenol 8 Hour] 650 mg Tablet Extended Release) PO PRN (11:09)
[2020-08-05] MEDS: DIGOXIN 0.125 MG TABLET PO SCH (13:43)
[2020-08-05] MEDS: DICLOFENAC 1% GEL 100 GM TUBE TOP SCH ×2 (17:19→20:49)
[2020-08-05] MEDS: FUROSEMIDE 40 MG TABLET PO SCH (20:48)
[2020-08-05] MEDS: RIVAROXABAN 2.5 MG TABLET PO SCH (20:48)
[2020-08-06 05:27] LABS: Basophils % 0.3 % (0.0-0.8); Eosinophils % 0.2 % (0.00-10.9); Hematocrit 31.3 VOL% (35.7-47.0); Immature Granulocytes % 0.6 %; Immature Granulocytes Absolute 0.05 #; Mean Corpuscular HGB Conc 32.6 GM/DL (32-36); Mean Corpuscular Volume 81.9 FL (87-102); Mean Platelet Volume 11.9 FL (9.6-12.0); Neutrophils % 75.9 % (38.7-73.9); Platelet Count 199 T/CUMM (130-400); Red Blood Count 3.82 MC/CUMM (3.8-5.5); Red Cell Distribution Width 15.5 % (9.3-17.3)
[2020-08-06 05:28] LABS: Hemoglobin 10.2 GM/DL (12.0-16.0); White Blood Count 8.9 T/CUMM (4-12)
[2020-08-06 05:36] LABS: Calcium 8.2 MG/DL (8.5-10.1); Osmolality,Calculated 270.2 MOS/KG (273-304); Potassium 4.2 MMOL/L (3.5-5.1)
[2020-08-06 05:40] LABS: Albumin 2.4 G/DL (3.4-5.0); Bilirubin,Total 0.9 MG/DL (0.2-1.0); Calcium 7.8 MG/DL (8.5-10.1); Osmolality,Calculated 273.1 MOS/KG (273-304); Potassium 4.3 MMOL/L (3.5-5.1); Total Protein 6.2 G/DL (6.4-8.2)
[2020-08-06] MEDS: ACETAMINOPHEN 325 MG TABLET PO PRN ×2 (06:40→18:28)
[2020-08-06] MEDS: METOPROLOL SUCCINATE XL 25 MG TABLET PO SCH (09:02)
[2020-08-06] MEDS: DICLOFENAC 1% GEL 100 GM TUBE TOP SCH ×3 (09:07→21:51)
[2020-08-06] MEDS: PANTOPRAZOLE 40 MG TABLET PO SCH (09:07)
[2020-08-06] MEDS: ROSUVASTATIN 20 MG TABLET PO SCH (09:07)
[2020-08-06] MEDS: RIVAROXABAN 2.5 MG TABLET PO SCH ×2 (09:07→21:50)
[2020-08-06] MEDS: POTASSIUM CHLORIDE 20 MEQ TABLET PO SCH (09:07)
[2020-08-06] MEDS: ASPIRIN EC 81 MG TABLET PO SCH (09:07)
[2020-08-06] MEDS: FUROSEMIDE 40 MG TABLET PO SCH ×2 (09:07→21:51)
[2020-08-06] MEDS: DIGOXIN 0.125 MG TABLET PO SCH (13:07)
[2020-08-06] MEDS ORDERED: ALUMINUM/MAGNES/SIMETH MAX STR 30 ML UDCUP PO PRN (15:09)
[2020-08-07 05:26] LABS: Calcium 8.2 MG/DL (8.5-10.1); Osmolality,Calculated 276.7 MOS/KG (273-304); Potassium 3.8 MMOL/L (3.5-5.1)
[2020-08-07] MEDS: RIVAROXABAN 2.5 MG TABLET PO SCH ×2 (09:07→20:50)
[2020-08-07] MEDS: FUROSEMIDE 40 MG TABLET PO SCH ×2 (09:07→20:51)
[2020-08-07] MEDS: ASPIRIN EC 81 MG TABLET PO SCH (09:07)
[2020-08-07] MEDS: POTASSIUM CHLORIDE 20 MEQ TABLET PO SCH (09:07)
[2020-08-07] MEDS: ROSUVASTATIN 20 MG TABLET PO SCH (09:07)
[2020-08-07] MEDS: PANTOPRAZOLE 40 MG TABLET PO SCH (09:07)
[2020-08-07] MEDS: METOPROLOL SUCCINATE XL 25 MG TABLET PO SCH (09:09)
[2020-08-07] MEDS: DICLOFENAC 1% GEL 100 GM TUBE TOP SCH ×3 (09:09→20:51)
[2020-08-07] MEDS: ACETAMINOPHEN 325 MG TABLET PO PRN (09:09)
[2020-08-07] MEDS: DIGOXIN 0.125 MG TABLET PO SCH (14:59)
[2020-08-08 06:43] LABS: Calcium 8.4 MG/DL (8.5-10.1); Osmolality,Calculated 272.8 MOS/KG (273-304)
[2020-08-08] MEDS: RIVAROXABAN 2.5 MG TABLET PO SCH ×2 (09:28→21:02)
[2020-08-08] MEDS: FUROSEMIDE 40 MG TABLET PO SCH ×2 (09:28→21:02)
[2020-08-08] MEDS: METOPROLOL SUCCINATE XL 25 MG TABLET PO SCH (09:28)
[2020-08-08] MEDS: PANTOPRAZOLE 40 MG TABLET PO SCH (09:28)
[2020-08-08] MEDS: ASPIRIN EC 81 MG TABLET PO SCH (09:28)
[2020-08-08] MEDS: ROSUVASTATIN 20 MG TABLET PO SCH (09:28)
[2020-08-08] MEDS: POTASSIUM CHLORIDE 20 MEQ TABLET PO SCH (09:29)
[2020-08-08] MEDS: DICLOFENAC 1% GEL 100 GM TUBE TOP SCH ×3 (09:32→21:03)
[2020-08-08] MEDS: DIGOXIN 0.125 MG TABLET PO SCH (13:36)
[2020-08-09 06:09] LABS: Calcium 8.3 MG/DL (8.5-10.1); Osmolality,Calculated 272.8 MOS/KG (273-304); Potassium 3.6 MMOL/L (3.5-5.1)
[2020-08-09] MEDS: FUROSEMIDE 40 MG TABLET PO SCH (08:32)
[2020-08-09] MEDS: METOPROLOL SUCCINATE XL 25 MG TABLET PO SCH (08:32)
[2020-08-09] MEDS: ASPIRIN EC 81 MG TABLET PO SCH (08:32)
[2020-08-09] MEDS: RIVAROXABAN 2.5 MG TABLET PO SCH ×2 (08:32→20:38)
[2020-08-09] MEDS: POTASSIUM CHLORIDE 20 MEQ TABLET PO SCH (08:32)
[2020-08-09] MEDS: PANTOPRAZOLE 40 MG TABLET PO SCH (08:32)
[2020-08-09] MEDS: DICLOFENAC 1% GEL 100 GM TUBE TOP SCH ×3 (08:32→20:38)
[2020-08-09] MEDS: ROSUVASTATIN 20 MG TABLET PO SCH (08:32)
[2020-08-09] MEDS: DIGOXIN 0.125 MG TABLET PO SCH (14:49)
[2020-08-10 01:22] VITALS: BP 93/64
[2020-08-10] MEDS: FUROSEMIDE 40 MG TABLET PO SCH (01:31)
== END 2020-08-09 21:53 | disposition home or self-care (01) | DRG 199 ==
LOC: EDUNIT# → EDBD → N.ED 04:36 → N.EDINP 05:54 → N.TELES 14:21
PROVIDERS: ADMIT Surgery; ATTEND Surgery

== ENCOUNTER 2020-08-17 18:59 | Inpatient (IN) ==
[2020-08-17 19:34] LABS: Basophils # 0.1 10*3/uL (0.0-0.2); Basophils % 0.7 % (0.0-0.8); Eosinophils # 0.3 10*3/uL (0.0-0.87); Eosinophils % 3.6 % (0.00-10.9); Hematocrit 34.7 VOL% (35.7-47.0); Immature Granulocytes % 0.4 %; Immature Granulocytes Absolute 0.03 #; Lymphocytes # 1.3 10*3/uL (1.4-4.0); Lymphocytes % 17.3 % (21.3-54.2); Mean Corpuscular HGB Conc 31.7 GM/DL (32-36); Mean Corpuscular Volume 81.6 FL (87-102); Mean Platelet Volume 10.8 FL (9.6-12.0); Monocytes % 8.6 % (1.7-12.7); Neutrophils % 69.4 % (38.7-73.9); Platelet Count 253 T/CUMM (130-400); Red Blood Count 4.25 MC/CUMM (3.8-5.5); White Blood Count 7.4 T/CUMM (4-12)
[2020-08-17 19:55] LABS: Albumin 2.9 G/DL (3.4-5.0); Bilirubin,Total 0.6 MG/DL (0.2-1.0); Calcium 8.8 MG/DL (8.5-10.1); Osmolality,Calculated 283.3 MOS/KG (273-304); Potassium 3.9 MMOL/L (3.5-5.1); Total Protein 7.2 G/DL (6.4-8.2)
[2020-08-17] MEDS ORDERED: ASPIRIN CHEW 81 MG TABLET PO STA (19:57)
[2020-08-17] MEDS ORDERED: FUROSEMIDE 100 MG/10 ML VIAL IV STA (20:11)
[2020-08-17] MEDS ORDERED: FUROSEMIDE 40 MG/4 ML VIAL ONE (20:15)
[2020-08-17] MEDS ORDERED: AZITHROMYCIN INJ 500 MG in SODIUM CHLORIDE 0.9% 250 ML IV STA (21:03)
[2020-08-17] MEDS ORDERED: cefTRIAXone 1,000 MG in SODIUM CHLORIDE 0.9% 100 ML IV STA (21:03)
[2020-08-17] MEDS ORDERED: ONDANSETRON 4 MG/2 ML VIAL IV PRN (21:04)
[2020-08-18 06:14] LABS: Basophils # 0.1 10*3/uL (0.0-0.2); Basophils % 0.8 % (0.0-0.8); Eosinophils # 0.1 10*3/uL (0.0-0.87); Eosinophils % 2.2 % (0.00-10.9); Hematocrit 34.8 VOL% (35.7-47.0); Hemoglobin 10.8 GM/DL (12.0-16.0); Immature Granulocytes % 0.5 %; Immature Granulocytes Absolute 0.03 #; Lymphocytes # 1.3 10*3/uL (1.4-4.0); Mean Corpuscular Volume 80.2 FL (87-102); Mean Platelet Volume 10.6 FL (9.6-12.0); Monocytes % 9.9 % (1.7-12.7); Neutrophils % 66.6 % (38.7-73.9); Platelet Count 239 T/CUMM (130-400); Red Blood Count 4.34 MC/CUMM (3.8-5.5); White Blood Count 6.3 T/CUMM (4-12)
[2020-08-18 06:35] LABS: Albumin 2.7 G/DL (3.4-5.0); Bilirubin,Total 0.8 MG/DL (0.2-1.0); Calcium 9.1 MG/DL (8.5-10.1); Osmolality,Calculated 278.7 MOS/KG (273-304); Potassium 3.8 MMOL/L (3.5-5.1); Total Protein 7.4 G/DL (6.4-8.2)
[2020-08-18] MEDS: PANTOPRAZOLE 40 MG TABLET PO SCH (08:50)
[2020-08-18] MEDS ORDERED: LEVALBUTEROL TARTRATE INH PRN (09:08)
[2020-08-18] MEDS ORDERED: NITROGLYCERIN SL 0.4 MG TABLET SL PRN (09:08)
[2020-08-18] MEDS: POTASSIUM CHLORIDE 20 MEQ TABLET PO SCH (09:26)
[2020-08-18] MEDS: RIVAROXABAN 2.5 MG TABLET PO SCH ×2 (09:26→22:10)
[2020-08-18] MEDS: ASPIRIN EC 81 MG TABLET PO SCH (09:31)
[2020-08-18] MEDS: ROSUVASTATIN 20 MG TABLET PO SCH (09:31)
[2020-08-18] MEDS: METOPROLOL SUCCINATE XL 25 MG TABLET PO SCH (09:32)
[2020-08-18 11:48] LABS: ABG Base Excess 1.9 MMOL/L (-2.5-2.5); ABG HCO3 26.1 MMOL/L (20-26); ABG Oxygen Saturation 97.4 % (95-100); ABG PCO2 35.8 MM HG (35-48); ABG PO2 92.1 MM HG (80-95); ABG TCO2 22.7 MMOL/L (23-27)
[2020-08-18] MEDS: ACETAMINOPHEN 325 MG TABLET PO PRN (12:42)
[2020-08-18] MEDS: DIGOXIN 0.125 MG TABLET PO SCH (12:42)
[2020-08-18] MEDS ORDERED: POTASSIUM CHLORIDE 20 MEQ TABLET PO ONE (14:46)
[2020-08-18] MEDS: methylPREDNISolone SOD SUC 40 MG/1 ML VIAL IV SCH (15:25)
[2020-08-18] MEDS: CLINDAMYCIN INJ 600 MG in PREMIX 1 EACH IV SCH (15:29)
[2020-08-18] MEDS ORDERED: ALBUTEROL/IPRATROPIUM 3 ML NEB RESP TX ONE (16:30)
[2020-08-18] MEDS ORDERED: FUROSEMIDE 40 MG/4 ML VIAL IV ONE (16:32)
[2020-08-18] MEDS: DOBUTamine 500 MG/250 ML PREMIX IV SCH (16:56)
[2020-08-18] MEDS: cefTRIAXone 1,000 MG in SODIUM CHLORIDE 0.9% 100 ML IV SCH (18:38)
[2020-08-18] MEDS: ALBUTEROL/IPRATROPIUM 3 ML NEB RESP TX SCH (19:20)
[2020-08-19] MEDS: CLINDAMYCIN INJ 600 MG in PREMIX 1 EACH IV SCH ×4 (00:29→23:31)
[2020-08-19] MEDS: ALBUTEROL/IPRATROPIUM 3 ML NEB RESP TX SCH ×4 (00:40→19:33)
[2020-08-19] MEDS: methylPREDNISolone SOD SUC 40 MG/1 ML VIAL IV SCH ×2 (03:43→14:33)
[2020-08-19 05:53] LABS: Basophils % 0.2 % (0.0-0.8); Hemoglobin 9.5 GM/DL (12.0-16.0); Immature Granulocytes % 0.4 %; Immature Granulocytes Absolute 0.02 #; Lymphocytes # 0.6 10*3/uL (1.4-4.0); Lymphocytes % 13.5 % (21.3-54.2); Mean Corpuscular HGB Conc 32.8 GM/DL (32-36); Mean Corpuscular Volume 78.2 FL (87-102); Mean Platelet Volume 11.2 FL (9.6-12.0); Monocytes % 7.1 % (1.7-12.7); Neutrophils % 78.8 % (38.7-73.9); Platelet Count 235 T/CUMM (130-400); Red Blood Count 3.71 MC/CUMM (3.8-5.5); Red Cell Distribution Width 15.8 % (9.3-17.3); White Blood Count 4.7 T/CUMM (4-12)
[2020-08-19 06:39] LABS: Osmolality,Calculated 280.5 MOS/KG (273-304); Potassium 3.4 MMOL/L (3.5-5.1)
[2020-08-19 07:22] LABS: Hypochromasia 1+; Lymphocytes 8 % (20-55); Microcytosis 1+; Platelet Estimate Adequate; Segmented Neutrophils 87 % (50-85); Total Cells Counted 100
[2020-08-19] MEDS: ASPIRIN EC 81 MG TABLET PO SCH (09:25)
[2020-08-19] MEDS: FUROSEMIDE 40 MG/4 ML VIAL IV SCH (09:26)
[2020-08-19] MEDS: PANTOPRAZOLE 40 MG TABLET PO SCH (09:26)
[2020-08-19] MEDS: RIVAROXABAN 2.5 MG TABLET PO SCH ×2 (09:26→20:13)
[2020-08-19] MEDS: ROSUVASTATIN 20 MG TABLET PO SCH (09:26)
[2020-08-19] MEDS: POTASSIUM CHLORIDE 20 MEQ TABLET PO SCH (09:26)
[2020-08-19] MEDS: METOPROLOL SUCCINATE XL 25 MG TABLET PO SCH (10:06)
[2020-08-19] MEDS ORDERED: POTASSIUM CHLORIDE 20 MEQ TABLET PO ONE (10:34)
[2020-08-19] MEDS: ASCORBIC ACID 500 MG TABLET PO SCH ×2 (11:14→20:13)
[2020-08-19] MEDS: DIGOXIN 0.125 MG TABLET PO SCH (12:27)
[2020-08-19] MEDS: cefTRIAXone 1,000 MG in SODIUM CHLORIDE 0.9% 100 ML IV SCH (15:47)
[2020-08-19] MEDS: DOBUTamine 500 MG/250 ML PREMIX IV SCH (19:15)
[2020-08-20] MEDS: ALBUTEROL/IPRATROPIUM 3 ML NEB RESP TX SCH ×4 (00:06→20:45)
[2020-08-20] MEDS: methylPREDNISolone SOD SUC 40 MG/1 ML VIAL IV SCH ×2 (05:13→15:44)
[2020-08-20 05:42] LABS: Basophils % 0.1 % (0.0-0.8); Hematocrit 28.8 VOL% (35.7-47.0); Hemoglobin 9.6 GM/DL (12.0-16.0); Immature Granulocytes % 0.5 %; Immature Granulocytes Absolute 0.05 #; Lymphocytes # 0.6 10*3/uL (1.4-4.0); Lymphocytes % 6.8 % (21.3-54.2); Mean Corpuscular HGB Conc 33.3 GM/DL (32-36); Mean Platelet Volume 11.4 FL (9.6-12.0); Monocytes % 11.3 % (1.7-12.7); Neutrophils % 81.3 % (38.7-73.9); Platelet Count 230 T/CUMM (130-400); Red Blood Count 3.69 MC/CUMM (3.8-5.5); Red Cell Distribution Width 15.9 % (9.3-17.3); White Blood Count 9.4 T/CUMM (4-12)
[2020-08-20 06:07] LABS: Osmolality,Calculated 280.5 MOS/KG (273-304); Potassium 4.3 MMOL/L (3.5-5.1)
[2020-08-20] MEDS: ROSUVASTATIN 20 MG TABLET PO SCH (08:48)
[2020-08-20] MEDS: ASPIRIN EC 81 MG TABLET PO SCH (08:48)
[2020-08-20] MEDS: METOPROLOL SUCCINATE XL 25 MG TABLET PO SCH (08:48)
[2020-08-20] MEDS: PANTOPRAZOLE 40 MG TABLET PO SCH (08:48)
[2020-08-20] MEDS: POTASSIUM CHLORIDE 20 MEQ TABLET PO SCH (08:48)
[2020-08-20] MEDS: ASCORBIC ACID 500 MG TABLET PO SCH ×2 (08:48→21:40)
[2020-08-20] MEDS: RIVAROXABAN 2.5 MG TABLET PO SCH ×2 (08:48→21:40)
[2020-08-20] MEDS: FUROSEMIDE 40 MG/4 ML VIAL IV SCH (08:49)
[2020-08-20] MEDS: CLINDAMYCIN INJ 600 MG in PREMIX 1 EACH IV SCH ×2 (08:58→16:49)
[2020-08-20] MEDS ORDERED: DOBUTamine 500 MG/250 ML PREMIX IV PRN (09:21)
[2020-08-20] MEDS: DIGOXIN 0.125 MG TABLET PO SCH (13:38)
[2020-08-20] MEDS: cefTRIAXone 1,000 MG in SODIUM CHLORIDE 0.9% 100 ML IV SCH (17:19)
[2020-08-21] MEDS: CLINDAMYCIN INJ 600 MG in PREMIX 1 EACH IV SCH ×3 (00:15→14:12)
[2020-08-21] MEDS: ALBUTEROL/IPRATROPIUM 3 ML NEB RESP TX SCH ×4 (02:20→18:50)
[2020-08-21] MEDS: methylPREDNISolone SOD SUC 40 MG/1 ML VIAL IV SCH ×2 (04:15→16:07)
[2020-08-21 05:33] LABS: Hematocrit 32.6 VOL% (35.7-47.0); Hemoglobin 10.3 GM/DL (12.0-16.0); Immature Granulocytes % 0.6 %; Immature Granulocytes Absolute 0.05 #; Lymphocytes # 0.6 10*3/uL (1.4-4.0); Lymphocytes % 6.4 % (21.3-54.2); Mean Corpuscular HGB Conc 31.6 GM/DL (32-36); Mean Corpuscular Volume 81.3 FL (87-102); Mean Platelet Volume 10.8 FL (9.6-12.0); Monocytes % 7.7 % (1.7-12.7); Neutrophils % 85.3 % (38.7-73.9); Platelet Count 244 T/CUMM (130-400); Red Blood Count 4.01 MC/CUMM (3.8-5.5)
[2020-08-21 05:58] LABS: Calcium 9.2 MG/DL (8.5-10.1); Osmolality,Calculated 277.8 MOS/KG (273-304); Potassium 3.9 MMOL/L (3.5-5.1)
[2020-08-21] MEDS: ASPIRIN EC 81 MG TABLET PO SCH (09:40)
[2020-08-21] MEDS: PANTOPRAZOLE 40 MG TABLET PO SCH (09:40)
[2020-08-21] MEDS: RIVAROXABAN 2.5 MG TABLET PO SCH ×2 (09:40→21:04)
[2020-08-21] MEDS: ASCORBIC ACID 500 MG TABLET PO SCH ×2 (09:40→21:04)
[2020-08-21] MEDS: POTASSIUM CHLORIDE 20 MEQ TABLET PO SCH (09:40)
[2020-08-21] MEDS: ROSUVASTATIN 20 MG TABLET PO SCH (09:40)
[2020-08-21] MEDS: METOPROLOL SUCCINATE XL 25 MG TABLET PO SCH (09:40)
[2020-08-21] MEDS: FUROSEMIDE 40 MG/4 ML VIAL IV SCH (09:41)
[2020-08-21] MEDS: SPIRONOLACTONE 25 MG TABLET PO SCH (11:13)
[2020-08-21] MEDS: DIGOXIN 0.125 MG TABLET PO SCH (14:08)
[2020-08-21] MEDS: cefTRIAXone 1,000 MG in SODIUM CHLORIDE 0.9% 100 ML IV SCH (16:04)
[2020-08-22] MEDS: ALBUTEROL/IPRATROPIUM 3 ML NEB RESP TX SCH ×4 (00:42→19:10)
[2020-08-22] MEDS: methylPREDNISolone SOD SUC 40 MG/1 ML VIAL IV SCH ×2 (03:43→15:59)
[2020-08-22 05:35] LABS: Basophils % 0.1 % (0.0-0.8); Hematocrit 33.8 VOL% (35.7-47.0); Hemoglobin 10.7 GM/DL (12.0-16.0); Immature Granulocytes % 0.4 %; Immature Granulocytes Absolute 0.03 #; Lymphocytes # 0.7 10*3/uL (1.4-4.0); Lymphocytes % 9.7 % (21.3-54.2); Mean Corpuscular HGB Conc 31.7 GM/DL (32-36); Mean Corpuscular Volume 80.3 FL (87-102); Monocytes % 9.5 % (1.7-12.7); NRBC # 0.02 10*3/uL; Neutrophils % 80.3 % (38.7-73.9); Platelet Count 250 T/CUMM (130-400); Red Blood Count 4.21 MC/CUMM (3.8-5.5); Red Cell Distribution Width 15.9 % (9.3-17.3); White Blood Count 7.3 T/CUMM (4-12)
[2020-08-22 05:56] LABS: Calcium 9.2 MG/DL (8.5-10.1); Potassium 4.5 MMOL/L (3.5-5.1)
[2020-08-22] MEDS: ASCORBIC ACID 500 MG TABLET PO SCH ×2 (08:57→21:00)
[2020-08-22] MEDS: RIVAROXABAN 2.5 MG TABLET PO SCH ×2 (08:57→21:00)
[2020-08-22] MEDS: METOPROLOL SUCCINATE XL 25 MG TABLET PO SCH (08:57)
[2020-08-22] MEDS: SPIRONOLACTONE 25 MG TABLET PO SCH (08:57)
[2020-08-22] MEDS: PANTOPRAZOLE 40 MG TABLET PO SCH (08:57)
[2020-08-22] MEDS: ROSUVASTATIN 20 MG TABLET PO SCH (08:58)
[2020-08-22] MEDS: ASPIRIN EC 81 MG TABLET PO SCH (08:58)
[2020-08-22] MEDS: POTASSIUM CHLORIDE 20 MEQ TABLET PO SCH (08:58)
[2020-08-22] MEDS: FUROSEMIDE 40 MG/4 ML VIAL IV SCH (09:02)
[2020-08-22] MEDS: DIGOXIN 0.125 MG TABLET PO SCH (13:46)
[2020-08-22] MEDS: cefTRIAXone 1,000 MG in SODIUM CHLORIDE 0.9% 100 ML IV SCH (15:56)
[2020-08-22] MEDS: MELATONIN 3 MG TABLET PO SCH (21:00)
[2020-08-23] MEDS: ALBUTEROL/IPRATROPIUM 3 ML NEB RESP TX SCH ×4 (02:54→20:56)
[2020-08-23] MEDS: methylPREDNISolone SOD SUC 40 MG/1 ML VIAL IV SCH ×2 (04:27→14:41)
[2020-08-23 05:38] LABS: Hematocrit 35.8 VOL% (35.7-47.0); Hemoglobin 11.6 GM/DL (12.0-16.0); Immature Granulocytes % 0.4 %; Immature Granulocytes Absolute 0.02 #; Lymphocytes # 0.8 10*3/uL (1.4-4.0); Mean Corpuscular HGB Conc 32.4 GM/DL (32-36); Mean Corpuscular Volume 79.2 FL (87-102); Mean Platelet Volume 10.8 FL (9.6-12.0); Monocytes % 8.9 % (1.7-12.7); NRBC # 0.02 10*3/uL; Neutrophils % 73.7 % (38.7-73.9); Platelet Count 259 T/CUMM (130-400); Red Blood Count 4.52 MC/CUMM (3.8-5.5); Red Cell Distribution Width 15.9 % (9.3-17.3); White Blood Count 4.8 T/CUMM (4-12)
[2020-08-23 05:57] LABS: Calcium 9.2 MG/DL (8.5-10.1); Osmolality,Calculated 272.4 MOS/KG (273-304); Potassium 4.6 MMOL/L (3.5-5.1)
[2020-08-23] MEDS: POTASSIUM CHLORIDE 20 MEQ TABLET PO SCH (08:49)
[2020-08-23] MEDS: RIVAROXABAN 2.5 MG TABLET PO SCH ×2 (08:49→21:15)
[2020-08-23] MEDS: SPIRONOLACTONE 25 MG TABLET PO SCH (08:49)
[2020-08-23] MEDS: METOPROLOL SUCCINATE XL 25 MG TABLET PO SCH (08:49)
[2020-08-23] MEDS: FUROSEMIDE 40 MG TABLET PO SCH (08:49)
[2020-08-23] MEDS: ROSUVASTATIN 20 MG TABLET PO SCH (08:49)
[2020-08-23] MEDS: ASCORBIC ACID 500 MG TABLET PO SCH ×2 (08:49→21:15)
[2020-08-23] MEDS: PANTOPRAZOLE 40 MG TABLET PO SCH (08:49)
[2020-08-23] MEDS: ASPIRIN EC 81 MG TABLET PO SCH (08:50)
[2020-08-23] MEDS: DIGOXIN 0.125 MG TABLET PO SCH (12:30)
[2020-08-23] MEDS ORDERED: FUROSEMIDE 20 MG/2 ML VIAL IV ONE (13:49)
[2020-08-23] MEDS: cefTRIAXone 1,000 MG in SODIUM CHLORIDE 0.9% 100 ML IV SCH (16:15)
[2020-08-23] MEDS: AMIODARONE 200 MG TABLET PO SCH (16:57)
[2020-08-23] MEDS: MELATONIN 3 MG TABLET PO SCH (21:15)
[2020-08-24] MEDS: ALBUTEROL/IPRATROPIUM 3 ML NEB RESP TX SCH ×4 (01:51→19:33)
[2020-08-24 05:20] LABS: Hematocrit 33.1 VOL% (35.7-47.0); Hemoglobin 10.7 GM/DL (12.0-16.0); Immature Granulocytes % 0.5 %; Immature Granulocytes Absolute 0.02 #; Lymphocytes # 0.7 10*3/uL (1.4-4.0); Lymphocytes % 16.5 % (21.3-54.2); Mean Corpuscular HGB Conc 32.3 GM/DL (32-36); Mean Corpuscular Volume 78.3 FL (87-102); Mean Platelet Volume 11.1 FL (9.6-12.0); Platelet Count 251 T/CUMM (130-400); Red Blood Count 4.23 MC/CUMM (3.8-5.5); Red Cell Distribution Width 15.8 % (9.3-17.3); White Blood Count 4.2 T/CUMM (4-12)
[2020-08-24 05:40] LABS: Osmolality,Calculated 279.8 MOS/KG (273-304); Potassium 4.2 MMOL/L (3.5-5.1)
[2020-08-24] MEDS: ASCORBIC ACID 500 MG TABLET PO SCH ×2 (08:58→20:49)
[2020-08-24] MEDS: PANTOPRAZOLE 40 MG TABLET PO SCH (08:58)
[2020-08-24] MEDS: methylPREDNISolone SOD SUC 40 MG/1 ML VIAL IV SCH (08:58)
[2020-08-24] MEDS: SPIRONOLACTONE 25 MG TABLET PO SCH (08:58)
[2020-08-24] MEDS: FUROSEMIDE 40 MG TABLET PO SCH (08:58)
[2020-08-24] MEDS: RIVAROXABAN 2.5 MG TABLET PO SCH ×2 (08:58→20:50)
[2020-08-24] MEDS: AMIODARONE 200 MG TABLET PO SCH (08:58)
[2020-08-24] MEDS: POTASSIUM CHLORIDE 20 MEQ TABLET PO SCH (08:58)
[2020-08-24] MEDS: ROSUVASTATIN 20 MG TABLET PO SCH (08:58)
[2020-08-24] MEDS: METOPROLOL SUCCINATE XL 25 MG TABLET PO SCH (08:58)
[2020-08-24] MEDS: ASPIRIN EC 81 MG TABLET PO SCH (08:58)
[2020-08-24] MEDS: FUROSEMIDE 40 MG/4 ML VIAL IV SCH ×2 (10:50→16:35)
[2020-08-24] MEDS: DIGOXIN 0.125 MG TABLET PO SCH (12:02)
[2020-08-24] MEDS: cefTRIAXone 1,000 MG in SODIUM CHLORIDE 0.9% 100 ML IV SCH (16:36)
[2020-08-24] MEDS: MELATONIN 3 MG TABLET PO SCH (20:50)
[2020-08-25] MEDS: ALBUTEROL/IPRATROPIUM 3 ML NEB RESP TX SCH ×4 (01:11→19:26)
[2020-08-25 05:41] LABS: Hematocrit 33.2 VOL% (35.7-47.0); Hemoglobin 11.2 GM/DL (12.0-16.0); Immature Granulocytes % 0.3 %; Immature Granulocytes Absolute 0.02 #; Lymphocytes # 0.7 10*3/uL (1.4-4.0); Lymphocytes % 12.4 % (21.3-54.2); Mean Corpuscular HGB Conc 33.7 GM/DL (32-36); Mean Corpuscular Volume 76.5 FL (87-102); Mean Platelet Volume 10.9 FL (9.6-12.0); Monocytes % 13.9 % (1.7-12.7); Neutrophils % 73.4 % (38.7-73.9); Platelet Count 259 T/CUMM (130-400); Red Blood Count 4.34 MC/CUMM (3.8-5.5); Red Cell Distribution Width 15.7 % (9.3-17.3)
[2020-08-25 06:04] LABS: Osmolality,Calculated 282.7 MOS/KG (273-304)
[2020-08-25] MEDS: PANTOPRAZOLE 40 MG TABLET PO SCH (09:12)
[2020-08-25] MEDS: ROSUVASTATIN 20 MG TABLET PO SCH (09:12)
[2020-08-25] MEDS: POTASSIUM CHLORIDE 20 MEQ TABLET PO SCH (09:13)
[2020-08-25] MEDS: ASCORBIC ACID 500 MG TABLET PO SCH ×2 (09:15→21:56)
[2020-08-25] MEDS: RIVAROXABAN 2.5 MG TABLET PO SCH ×2 (09:16→21:57)
[2020-08-25] MEDS: methylPREDNISolone SOD SUC 40 MG/1 ML VIAL IV SCH (09:16)
[2020-08-25] MEDS: FUROSEMIDE 40 MG/4 ML VIAL IV SCH ×2 (09:16→15:26)
[2020-08-25] MEDS: METOPROLOL SUCCINATE XL 25 MG TABLET PO SCH (09:17)
[2020-08-25] MEDS: SPIRONOLACTONE 25 MG TABLET PO SCH (09:17)
[2020-08-25] MEDS: AMIODARONE 200 MG TABLET PO SCH (09:17)
[2020-08-25] MEDS: ASPIRIN EC 81 MG TABLET PO SCH (09:17)
[2020-08-25] MEDS ORDERED: FUROSEMIDE 40 MG/4 ML VIAL IV ONE (10:37)
[2020-08-25] MEDS: DIGOXIN 0.125 MG TABLET PO SCH (12:29)
[2020-08-25] MEDS: cefTRIAXone 1,000 MG in SODIUM CHLORIDE 0.9% 100 ML IV SCH (15:32)
[2020-08-25] MEDS: ACETAMINOPHEN 325 MG TABLET PO PRN (19:34)
[2020-08-25] MEDS: MELATONIN 3 MG TABLET PO SCH (21:57)
[2020-08-26] MEDS: ALBUTEROL/IPRATROPIUM 3 ML NEB RESP TX SCH ×4 (00:58→19:40)
[2020-08-26 07:08] LABS: Hematocrit 34.8 VOL% (35.7-47.0); Hemoglobin 11.5 GM/DL (12.0-16.0); Immature Granulocytes % 0.4 %; Immature Granulocytes Absolute 0.03 #; Lymphocytes # 0.9 10*3/uL (1.4-4.0); Lymphocytes % 12.8 % (21.3-54.2); Mean Corpuscular Volume 77.7 FL (87-102); Mean Platelet Volume 11.1 FL (9.6-12.0); Monocytes % 13.9 % (1.7-12.7); Neutrophils % 72.9 % (38.7-73.9); Platelet Count 299 T/CUMM (130-400); Red Blood Count 4.48 MC/CUMM (3.8-5.5); Red Cell Distribution Width 15.8 % (9.3-17.3); White Blood Count 7.3 T/CUMM (4-12)
[2020-08-26 07:22] LABS: Calcium 8.9 MG/DL (8.5-10.1); Osmolality,Calculated 267.7 MOS/KG (273-304); Potassium 4.8 MMOL/L (3.5-5.1)
[2020-08-26] MEDS: PANTOPRAZOLE 40 MG TABLET PO SCH (09:13)
[2020-08-26] MEDS: RIVAROXABAN 2.5 MG TABLET PO SCH ×2 (09:13→21:49)
[2020-08-26] MEDS: ASCORBIC ACID 500 MG TABLET PO SCH ×2 (09:15→21:49)
[2020-08-26] MEDS: SPIRONOLACTONE 25 MG TABLET PO SCH (09:16)
[2020-08-26] MEDS: ROSUVASTATIN 20 MG TABLET PO SCH (09:16)
[2020-08-26] MEDS: POTASSIUM CHLORIDE 20 MEQ TABLET PO SCH (09:16)
[2020-08-26] MEDS: ASPIRIN EC 81 MG TABLET PO SCH (09:16)
[2020-08-26] MEDS: AMIODARONE 200 MG TABLET PO SCH ×2 (09:16→10:46)
[2020-08-26] MEDS: methylPREDNISolone SOD SUC 40 MG/1 ML VIAL IV SCH (09:17)
[2020-08-26] MEDS: FUROSEMIDE 40 MG/4 ML VIAL IV SCH ×2 (09:17→16:30)
[2020-08-26] MEDS: METOPROLOL SUCCINATE XL 25 MG TABLET PO SCH (09:17)
[2020-08-26] MEDS ORDERED: METOPROLOL TARTRATE 25 MG TABLET PO ONE (11:43)
[2020-08-26] MEDS: DIGOXIN 0.125 MG TABLET PO SCH (12:01)
[2020-08-26] MEDS: MELATONIN 3 MG TABLET PO SCH (21:45)
[2020-08-27] MEDS: ALBUTEROL/IPRATROPIUM 3 ML NEB RESP TX SCH ×4 (00:50→19:41)
[2020-08-27 06:16] LABS: Hematocrit 35.9 VOL% (35.7-47.0); Hemoglobin 11.6 GM/DL (12.0-16.0); Immature Granulocytes % 0.4 %; Immature Granulocytes Absolute 0.03 #; Lymphocytes # 0.9 10*3/uL (1.4-4.0); Lymphocytes % 13.4 % (21.3-54.2); Mean Corpuscular HGB Conc 32.3 GM/DL (32-36); Mean Corpuscular Volume 77.7 FL (87-102); Mean Platelet Volume 10.6 FL (9.6-12.0); Monocytes % 15.3 % (1.7-12.7); NRBC # 0.02 10*3/uL; Neutrophils % 70.9 % (38.7-73.9); Platelet Count 299 T/CUMM (130-400); Red Blood Count 4.62 MC/CUMM (3.8-5.5); Red Cell Distribution Width 15.9 % (9.3-17.3)
[2020-08-27 06:50] LABS: Calcium 8.9 MG/DL (8.5-10.1); Osmolality,Calculated 278.8 MOS/KG (273-304); Potassium 3.7 MMOL/L (3.5-5.1)
[2020-08-27] MEDS: AMIODARONE 200 MG TABLET PO SCH (08:50)
[2020-08-27] MEDS: ASCORBIC ACID 500 MG TABLET PO SCH ×2 (08:50→21:09)
[2020-08-27] MEDS: POTASSIUM CHLORIDE 20 MEQ TABLET PO SCH (08:50)
[2020-08-27] MEDS: ASPIRIN EC 81 MG TABLET PO SCH (08:50)
[2020-08-27] MEDS: ROSUVASTATIN 20 MG TABLET PO SCH (08:50)
[2020-08-27] MEDS: PANTOPRAZOLE 40 MG TABLET PO SCH (08:50)
[2020-08-27] MEDS: FUROSEMIDE 40 MG/4 ML VIAL IV SCH ×2 (08:51→16:09)
[2020-08-27] MEDS: SPIRONOLACTONE 25 MG TABLET PO SCH (08:52)
[2020-08-27] MEDS: METOPROLOL SUCCINATE XL 25 MG TABLET PO SCH (08:53)
[2020-08-27] MEDS: methylPREDNISolone SOD SUC 40 MG/1 ML VIAL IV SCH (08:55)
[2020-08-27] MEDS: RIVAROXABAN 2.5 MG TABLET PO SCH ×2 (09:14→21:09)
[2020-08-27] MEDS: DIGOXIN 0.125 MG TABLET PO SCH (12:02)
[2020-08-27] MEDS: MELATONIN 3 MG TABLET PO SCH (21:09)
[2020-08-28] MEDS: ALBUTEROL/IPRATROPIUM 3 ML NEB RESP TX SCH ×4 (00:09→19:38)
[2020-08-28 06:11] LABS: Basophils % 0.2 % (0.0-0.8); Hematocrit 38.8 VOL% (35.7-47.0); Hemoglobin 12.2 GM/DL (12.0-16.0); Immature Granulocytes % 0.5 %; Immature Granulocytes Absolute 0.03 #; Lymphocytes # 0.9 10*3/uL (1.4-4.0); Lymphocytes % 13.6 % (21.3-54.2); Mean Corpuscular HGB Conc 31.4 GM/DL (32-36); Mean Corpuscular Volume 81.2 FL (87-102); Neutrophils % 70.7 % (38.7-73.9); Platelet Count 279 T/CUMM (130-400); Red Blood Count 4.78 MC/CUMM (3.8-5.5); Red Cell Distribution Width 16.5 % (9.3-17.3); White Blood Count 6.3 T/CUMM (4-12)
[2020-08-28] MEDS: RIVAROXABAN 2.5 MG TABLET PO SCH ×2 (08:13→20:47)
[2020-08-28] MEDS: SPIRONOLACTONE 25 MG TABLET PO SCH (08:13)
[2020-08-28] MEDS: ASCORBIC ACID 500 MG TABLET PO SCH ×2 (08:13→20:47)
[2020-08-28] MEDS: POTASSIUM CHLORIDE 20 MEQ TABLET PO SCH (08:13)
[2020-08-28] MEDS: AMIODARONE 200 MG TABLET PO SCH (08:13)
[2020-08-28] MEDS: PANTOPRAZOLE 40 MG TABLET PO SCH (08:13)
[2020-08-28] MEDS: ROSUVASTATIN 20 MG TABLET PO SCH (08:14)
[2020-08-28] MEDS: ASPIRIN EC 81 MG TABLET PO SCH (08:14)
[2020-08-28] MEDS: FUROSEMIDE 40 MG/4 ML VIAL IV SCH ×2 (08:14→16:02)
[2020-08-28] MEDS: METOPROLOL SUCCINATE XL 25 MG TABLET PO SCH (08:14)
[2020-08-28] MEDS: methylPREDNISolone SOD SUC 40 MG/1 ML VIAL IV SCH (08:18)
[2020-08-28 09:10] LABS: Calcium 8.9 MG/DL (8.5-10.1); Potassium 3.9 MMOL/L (3.5-5.1)
[2020-08-28] MEDS: DIGOXIN 0.125 MG TABLET PO SCH (12:00)
[2020-08-28] MEDS: MELATONIN 3 MG TABLET PO SCH (20:46)
[2020-08-29] MEDS: ALBUTEROL/IPRATROPIUM 3 ML NEB RESP TX SCH ×4 (01:33→19:42)
[2020-08-29 06:01] LABS: Hematocrit 34.3 VOL% (35.7-47.0); Hemoglobin 11.7 GM/DL (12.0-16.0); Immature Granulocytes % 0.4 %; Immature Granulocytes Absolute 0.03 #; Lymphocytes # 1.1 10*3/uL (1.4-4.0); Lymphocytes % 15.5 % (21.3-54.2); Mean Corpuscular HGB Conc 34.1 GM/DL (32-36); Mean Corpuscular Volume 75.6 FL (87-102); Mean Platelet Volume 10.7 FL (9.6-12.0); Monocytes % 13.4 % (1.7-12.7); Neutrophils % 70.7 % (38.7-73.9); Platelet Count 227 T/CUMM (130-400); Red Blood Count 4.54 MC/CUMM (3.8-5.5); Red Cell Distribution Width 15.9 % (9.3-17.3); White Blood Count 7.3 T/CUMM (4-12)
[2020-08-29 06:33] LABS: Calcium 8.8 MG/DL (8.5-10.1); Osmolality,Calculated 282.5 MOS/KG (273-304); Potassium 3.6 MMOL/L (3.5-5.1)
[2020-08-29] MEDS: POTASSIUM CHLORIDE 20 MEQ TABLET PO SCH (09:00)
[2020-08-29] MEDS: ASPIRIN EC 81 MG TABLET PO SCH (09:00)
[2020-08-29] MEDS: RIVAROXABAN 2.5 MG TABLET PO SCH ×2 (09:00→21:32)
[2020-08-29] MEDS: ROSUVASTATIN 20 MG TABLET PO SCH (09:00)
[2020-08-29] MEDS: SPIRONOLACTONE 25 MG TABLET PO SCH (09:00)
[2020-08-29] MEDS: ASCORBIC ACID 500 MG TABLET PO SCH ×2 (09:00→21:32)
[2020-08-29] MEDS: AMIODARONE 200 MG TABLET PO SCH (09:01)
[2020-08-29] MEDS: FUROSEMIDE 40 MG/4 ML VIAL IV SCH ×2 (09:01→16:08)
[2020-08-29] MEDS: PANTOPRAZOLE 40 MG TABLET PO SCH (09:01)
[2020-08-29] MEDS: methylPREDNISolone SOD SUC 40 MG/1 ML VIAL IV SCH (09:06)
[2020-08-29] MEDS: METOPROLOL SUCCINATE XL 25 MG TABLET PO SCH (09:34)
[2020-08-29] MEDS: DIGOXIN 0.125 MG TABLET PO SCH (12:02)
[2020-08-29] MEDS: MELATONIN 3 MG TABLET PO SCH (21:32)
[2020-08-30] MEDS: ALBUTEROL/IPRATROPIUM 3 ML NEB RESP TX SCH ×3 (00:20→12:55)
[2020-08-30 06:14] LABS: Basophils % 0.1 % (0.0-0.8); Hematocrit 36.1 VOL% (35.7-47.0); Hemoglobin 11.8 GM/DL (12.0-16.0); Immature Granulocytes % 0.5 %; Immature Granulocytes Absolute 0.04 #; Lymphocytes % 12.7 % (21.3-54.2); Mean Corpuscular HGB Conc 32.7 GM/DL (32-36); Mean Corpuscular Volume 76.6 FL (87-102); Mean Platelet Volume 10.1 FL (9.6-12.0); Monocytes % 9.9 % (1.7-12.7); Neutrophils % 76.8 % (38.7-73.9); Platelet Count 265 T/CUMM (130-400); Red Blood Count 4.71 MC/CUMM (3.8-5.5); Red Cell Distribution Width 15.9 % (9.3-17.3); White Blood Count 8.1 T/CUMM (4-12)
[2020-08-30 06:24] LABS: Calcium 8.8 MG/DL (8.5-10.1); Osmolality,Calculated 281.7 MOS/KG (273-304); Potassium 3.9 MMOL/L (3.5-5.1)
[2020-08-30] MEDS: SPIRONOLACTONE 25 MG TABLET PO SCH (09:19)
[2020-08-30] MEDS: AMIODARONE 200 MG TABLET PO SCH (09:20)
[2020-08-30] MEDS: ASPIRIN EC 81 MG TABLET PO SCH (09:20)
[2020-08-30] MEDS: METOPROLOL SUCCINATE XL 25 MG TABLET PO SCH (09:20)
[2020-08-30] MEDS: ASCORBIC ACID 500 MG TABLET PO SCH (09:20)
[2020-08-30] MEDS: RIVAROXABAN 2.5 MG TABLET PO SCH (09:20)
[2020-08-30] MEDS: ROSUVASTATIN 20 MG TABLET PO SCH (09:21)
[2020-08-30] MEDS: PANTOPRAZOLE 40 MG TABLET PO SCH (09:21)
[2020-08-30] MEDS: FUROSEMIDE 40 MG/4 ML VIAL IV SCH (09:21)
[2020-08-30] MEDS: POTASSIUM CHLORIDE 20 MEQ TABLET PO SCH (09:21)
[2020-08-30] MEDS: methylPREDNISolone SOD SUC 40 MG/1 ML VIAL IV SCH (09:22)
[2020-08-30 12:33] VITALS: BP 92/65
[2020-08-30] MEDS: DIGOXIN 0.125 MG TABLET PO SCH (12:39)
[2020-08-30] MEDS ORDERED: FUROSEMIDE 40 MG TABLET PO SCH (16:00)
== END 2020-08-30 14:10 | disposition swing bed (61) | DRG 291 ==
LOC: EDBD → EDUNIT# → N.ED 18:59 → INTOOBSV 21:04 → N.EDINP 21:04 → N.TELES 08-18 01:06
PROVIDERS: ADMIT Family Medicine; ATTEND Family Medicine

== ENCOUNTER 2020-09-27 23:18 | Inpatient (IN) ==
[2020-09-28 00:17] LABS: Basophils % 0.3 % (0.0-0.8); Eosinophils % 0.1 % (0.00-10.9); Hematocrit 27.4 VOL% (35.7-47.0); Hemoglobin 8.6 GM/DL (12.0-16.0); Immature Granulocytes % 0.8 %; Immature Granulocytes Absolute 0.07 #; Lymphocytes % 11.3 % (21.3-54.2); Mean Corpuscular HGB Conc 31.4 GM/DL (32-36); Mean Corpuscular Volume 80.6 FL (87-102); Mean Platelet Volume 11.1 FL (9.6-12.0); Monocytes % 12.6 % (1.7-12.7); NRBC # 0.03 10*3/uL; Neutrophils % 74.9 % (38.7-73.9); Platelet Count 289 T/CUMM (130-400); White Blood Count 9.2 T/CUMM (4-12)
[2020-09-28 00:56] LABS: Bilirubin,Total 1.1 MG/DL (0.2-1.0); Calcium 9.2 MG/DL (8.5-10.1); Potassium 4.4 MMOL/L (3.5-5.1); Total Protein 7.7 G/DL (6.4-8.2)
[2020-09-28] MEDS ORDERED: FUROSEMIDE 100 MG/10 ML VIAL IV STA (01:56)
[2020-09-28] MEDS ORDERED: ACETAMINOPHEN 325 MG TABLET PO PRN (01:57)
[2020-09-28] MEDS ORDERED: ONDANSETRON 4 MG/2 ML VIAL IV PRN (01:57)
[2020-09-28] MEDS ORDERED: ALBUTEROL 2.5 MG/3 ML NEB RESP TX PRN (01:59)
[2020-09-28 04:18] LABS: Basophils % 0.5 % (0.0-0.8); Hematocrit 29.4 VOL% (35.7-47.0); Hemoglobin 9.4 GM/DL (12.0-16.0); Immature Granulocytes % 0.7 %; Immature Granulocytes Absolute 0.05 #; Lymphocytes # 0.8 10*3/uL (1.4-4.0); Lymphocytes % 9.9 % (21.3-54.2); Mean Corpuscular Volume 78.6 FL (87-102); Mean Platelet Volume 10.7 FL (9.6-12.0); Monocytes % 7.7 % (1.7-12.7); Neutrophils % 81.2 % (38.7-73.9); Platelet Count 242 T/CUMM (130-400); Red Blood Count 3.74 MC/CUMM (3.8-5.5); Red Cell Distribution Width 19.7 % (9.3-17.3); White Blood Count 7.7 T/CUMM (4-12)
[2020-09-28 04:39] LABS: Calcium 8.9 MG/DL (8.5-10.1); Osmolality,Calculated 278.2 MOS/KG (273-304); Total Protein 7.5 G/DL (6.4-8.2)
[2020-09-28] MEDS: ROSUVASTATIN 20 MG TABLET PO SCH (09:40)
[2020-09-28] MEDS: PANTOPRAZOLE 40 MG TABLET PO SCH (09:40)
[2020-09-28] MEDS: AMIODARONE 200 MG TABLET PO SCH (09:40)
[2020-09-28] MEDS: ASPIRIN EC 81 MG TABLET PO SCH (09:40)
[2020-09-28] MEDS: SPIRONOLACTONE 25 MG TABLET PO SCH (09:40)
[2020-09-28] MEDS: DOCUSATE SODIUM 100 MG CAPSULE PO SCH ×2 (09:40→21:01)
[2020-09-28] MEDS: FUROSEMIDE 40 MG TABLET PO SCH (09:40)
[2020-09-28] MEDS: DIGOXIN 0.125 MG TABLET PO SCH (14:20)
[2020-09-28] MEDS ORDERED: GLUCAGON 1 MG VIAL IM PRN (16:20)
[2020-09-28] MEDS ORDERED: MAGNESIUM SULF RIDER 2 GM/50 ML PREMIX IV PRN (16:20)
[2020-09-28] MEDS ORDERED: DEXTROSE 50% 25 GM/50 ML VIAL IV PRN (16:20)
[2020-09-28] MEDS ORDERED: POTASSIUM CHLORIDE RIDER 10 MEQ/100 ML PREMIX IV PRN (16:20)
[2020-09-28] MEDS ORDERED: POTASSIUM CHLORIDE 20 MEQ TABLET PO PRN (16:20)
[2020-09-28] MEDS ORDERED: MAGNESIUM SULF RIDER 4 GM/100 ML PREMIX IV PRN (16:20)
[2020-09-28] MEDS ORDERED: NITROGLYCERIN SL 0.4 MG TABLET SL PRN (16:22)
[2020-09-28] MEDS: INSULIN LISPRO 100 UNIT/ML SUBCUT SCH ×2 (16:40→21:02)
[2020-09-28] MEDS: RIVAROXABAN 2.5 MG TABLET PO SCH (21:01)
[2020-09-28] MEDS: MELATONIN 3 MG TABLET PO SCH (21:01)
[2020-09-28] MEDS: ASCORBIC ACID 500 MG TABLET PO SCH (21:01)
[2020-09-28] MEDS: FUROSEMIDE 40 MG/4 ML VIAL IV SCH (21:02)
[2020-09-29 07:01] LABS: Basophils % 0.5 % (0.0-0.8); Eosinophils % 0.5 % (0.00-10.9); Hematocrit 29.1 VOL% (35.7-47.0); Hemoglobin 9.7 GM/DL (12.0-16.0); Immature Granulocytes % 0.8 %; Immature Granulocytes Absolute 0.06 #; Lymphocytes # 1.3 10*3/uL (1.4-4.0); Lymphocytes % 16.6 % (21.3-54.2); Mean Corpuscular HGB Conc 33.3 GM/DL (32-36); Mean Corpuscular Volume 76.8 FL (87-102); Mean Platelet Volume 11.2 FL (9.6-12.0); Monocytes % 9.5 % (1.7-12.7); NRBC # 0.03 10*3/uL; Neutrophils % 72.1 % (38.7-73.9); Platelet Count 250 T/CUMM (130-400); Red Blood Count 3.79 MC/CUMM (3.8-5.5); Red Cell Distribution Width 19.9 % (9.3-17.3); White Blood Count 7.8 T/CUMM (4-12)
[2020-09-29 07:34] LABS: Albumin 2.9 G/DL (3.4-5.0); Bilirubin,Total 1.1 MG/DL (0.2-1.0); Calcium 8.8 MG/DL (8.5-10.1); Osmolality,Calculated 271.5 MOS/KG (273-304); Potassium 4.2 MMOL/L (3.5-5.1); Total Protein 7.3 G/DL (6.4-8.2)
[2020-09-29] MEDS: DOCUSATE SODIUM 100 MG CAPSULE PO SCH ×2 (08:58→23:51)
[2020-09-29] MEDS: ROSUVASTATIN 20 MG TABLET PO SCH (08:59)
[2020-09-29] MEDS: METOPROLOL SUCCINATE XL 25 MG TABLET PO SCH (08:59)
[2020-09-29] MEDS: ASCORBIC ACID 500 MG TABLET PO SCH ×2 (09:01→22:43)
[2020-09-29] MEDS: ASPIRIN EC 81 MG TABLET PO SCH (09:02)
[2020-09-29] MEDS: RIVAROXABAN 2.5 MG TABLET PO SCH ×2 (09:02→22:41)
[2020-09-29] MEDS: AMIODARONE 200 MG TABLET PO SCH ×2 (09:02→09:06)
[2020-09-29] MEDS: CLOPIDOGREL 75 MG TABLET PO SCH (09:03)
[2020-09-29] MEDS: SPIRONOLACTONE 25 MG TABLET PO SCH ×2 (09:03→09:06)
[2020-09-29] MEDS: PANTOPRAZOLE 40 MG TABLET PO SCH (09:03)
[2020-09-29] MEDS: INSULIN LISPRO 100 UNIT/ML SUBCUT SCH ×3 (09:06→19:38)
[2020-09-29] MEDS: FUROSEMIDE 40 MG/4 ML VIAL IV SCH ×2 (09:10→22:50)
[2020-09-29 11:44] LABS: Bilirubin,Urine Negative (Negative); Blood, Urine Negative (Negative); Glucose,Urine (UA) Negative (Negative); Hyaline Casts,Urine 8 /LPF (0-3); Ketones,Urine Negative (Negative); Mucus,Urine Occasional /LPF (Occasional); Nitrite,Urine Negative (Negative); Protein,Urine Negative; RBC,Urine 6 /HPF (0-4); Squamous Epithelial Cell,Urine Occasional /HPF (0-10); Urine Appearance CLEAR (Clear); Urine Color Yellow (Yellow); Urine Urobilinogen < 2.0 EU/DL (0.2-1.0)
[2020-09-29] MEDS: DIGOXIN 0.125 MG TABLET PO SCH (13:33)
[2020-09-29] MEDS ORDERED: PHENOL 1.4% THROAT SPRAY 177 ML BOTTLE PO PRN (15:20)
[2020-09-29] MEDS ORDERED: SODIUM CHLORIDE 0.9% 100 ML IV ONE (16:00)
[2020-09-29] MEDS: SODIUM CHLORIDE 0.9% 100 ML IV SCH (18:31)
[2020-09-29] MEDS: MELATONIN 3 MG TABLET PO SCH (22:40)
[2020-09-29] MEDS: cephALEXin 250 MG CAPSULE PO SCH (22:41)
[2020-09-30] MEDS: INSULIN LISPRO 100 UNIT/ML SUBCUT SCH ×3 (00:28→17:18)
[2020-09-30 05:03] LABS: Basophils % 0.5 % (0.0-0.8); Eosinophils % 0.5 % (0.00-10.9); Hematocrit 28.2 VOL% (35.7-47.0); Hemoglobin 9.1 GM/DL (12.0-16.0); Immature Granulocytes % 0.8 %; Immature Granulocytes Absolute 0.05 #; Lymphocytes # 0.9 10*3/uL (1.4-4.0); Lymphocytes % 13.3 % (21.3-54.2); Mean Corpuscular HGB Conc 32.3 GM/DL (32-36); Mean Corpuscular Volume 77.5 FL (87-102); Mean Platelet Volume 10.6 FL (9.6-12.0); Monocytes % 10.4 % (1.7-12.7); NRBC # 0.02 10*3/uL; Neutrophils % 74.5 % (38.7-73.9); Platelet Count 241 T/CUMM (130-400); Red Blood Count 3.64 MC/CUMM (3.8-5.5); Red Cell Distribution Width 19.8 % (9.3-17.3); White Blood Count 6.5 T/CUMM (4-12)
[2020-09-30] MEDS: AMIODARONE 200 MG TABLET PO SCH ×2 (10:04→10:07)
[2020-09-30] MEDS: ASCORBIC ACID 500 MG TABLET PO SCH ×2 (10:04→22:52)
[2020-09-30] MEDS: PANTOPRAZOLE 40 MG TABLET PO SCH (10:05)
[2020-09-30] MEDS: CLOPIDOGREL 75 MG TABLET PO SCH (10:05)
[2020-09-30] MEDS: DOCUSATE SODIUM 100 MG CAPSULE PO SCH (10:05)
[2020-09-30] MEDS: ROSUVASTATIN 20 MG TABLET PO SCH (10:06)
[2020-09-30] MEDS: MULTIVITAMIN (CENTRUM) TABLET PO SCH (10:06)
[2020-09-30] MEDS: ASPIRIN EC 81 MG TABLET PO SCH (10:06)
[2020-09-30] MEDS: RIVAROXABAN 2.5 MG TABLET PO SCH ×2 (10:06→22:51)
[2020-09-30] MEDS: SPIRONOLACTONE 25 MG TABLET PO SCH (10:07)
[2020-09-30] MEDS: METOPROLOL SUCCINATE XL 25 MG TABLET PO SCH (10:37)
[2020-09-30] MEDS: cephALEXin 250 MG CAPSULE PO SCH ×2 (10:39→22:50)
[2020-09-30] MEDS: FUROSEMIDE 40 MG/4 ML VIAL IV SCH (10:55)
[2020-09-30] MEDS: DIGOXIN 0.125 MG TABLET PO SCH (13:39)
[2020-09-30] MEDS: MELATONIN 3 MG TABLET PO SCH (22:49)
[2020-09-30] MEDS: FUROSEMIDE 40 MG TABLET PO SCH (22:51)
[2020-10-01] MEDS: DOCUSATE SODIUM 100 MG CAPSULE PO SCH ×2 (01:33→09:33)
[2020-10-01] MEDS: INSULIN LISPRO 100 UNIT/ML SUBCUT SCH ×3 (01:33→11:41)
[2020-10-01 06:07] LABS: Basophils % 0.6 % (0.0-0.8); Eosinophils # 0.1 10*3/uL (0.0-0.87); Eosinophils % 1.4 % (0.00-10.9); Hematocrit 31.7 VOL% (35.7-47.0); Immature Granulocytes % 0.6 %; Immature Granulocytes Absolute 0.04 #; Lymphocytes % 13.9 % (21.3-54.2); Mean Corpuscular HGB Conc 31.5 GM/DL (32-36); Mean Corpuscular Volume 79.1 FL (87-102); Mean Platelet Volume 10.5 FL (9.6-12.0); Monocytes % 14.1 % (1.7-12.7); NRBC # 0.05 10*3/uL; Neutrophils % 69.4 % (38.7-73.9); Platelet Count 248 T/CUMM (130-400); Red Blood Count 4.01 MC/CUMM (3.8-5.5); Red Cell Distribution Width 20.3 % (9.3-17.3)
[2020-10-01 06:24] LABS: Calcium 8.6 MG/DL (8.5-10.1); Osmolality,Calculated 274.1 MOS/KG (273-304); Potassium 4.1 MMOL/L (3.5-5.1)
[2020-10-01] MEDS: CLOPIDOGREL 75 MG TABLET PO SCH (09:33)
[2020-10-01] MEDS: SPIRONOLACTONE 25 MG TABLET PO SCH (09:33)
[2020-10-01] MEDS: ASPIRIN EC 81 MG TABLET PO SCH (09:33)
[2020-10-01] MEDS: cephALEXin 250 MG CAPSULE PO SCH (09:33)
[2020-10-01] MEDS: AMIODARONE 200 MG TABLET PO SCH (09:34)
[2020-10-01] MEDS: RIVAROXABAN 2.5 MG TABLET PO SCH (09:34)
[2020-10-01] MEDS: METOPROLOL SUCCINATE XL 25 MG TABLET PO SCH (09:34)
[2020-10-01] MEDS: PANTOPRAZOLE 40 MG TABLET PO SCH (09:34)
[2020-10-01] MEDS: ASCORBIC ACID 500 MG TABLET PO SCH (09:34)
[2020-10-01] MEDS: ROSUVASTATIN 20 MG TABLET PO SCH (09:34)
[2020-10-01] MEDS: MULTIVITAMIN (CENTRUM) TABLET PO SCH (09:34)
[2020-10-01] MEDS: FUROSEMIDE 40 MG TABLET PO SCH (09:34)
[2020-10-01 11:49] VITALS: BP 114/74
[2020-10-01] MEDS: DIGOXIN 0.125 MG TABLET PO SCH (13:02)
== END 2020-10-01 15:43 | disposition hospice, home (50) | DRG 292 ==
LOC: N.ED 23:18 → INTOOBSV 09-28 01:57 → N.EDINP 09-28 01:57 → N.2E 09-28 11:48 → N.TELES 09-28 15:04
PROVIDERS: ADMIT Family Medicine; ATTEND Family Medicine

== ENCOUNTER 2021-03-09 15:38 | Inpatient (IN) ==
[2021-03-09] MEDS ORDERED: SODIUM CHLORIDE 0.9% 1,000 ML IV STA (16:37)
[2021-03-09 17:17] LABS: Basophils % 0.4 % (0.0-0.8); Hematocrit 39.4 VOL% (35.7-47.0); Hemoglobin 12.1 GM/DL (12.0-16.0); Immature Granulocytes % 0.6 %; Immature Granulocytes Absolute 0.03 #; Lymphocytes # 0.6 10*3/uL (1.4-4.0); Lymphocytes % 11.6 % (21.3-54.2); Mean Corpuscular HGB Conc 30.7 GM/DL (32-36); Mean Corpuscular Volume 82.8 FL (87-102); Mean Platelet Volume 10.4 FL (9.6-12.0); Monocytes % 6.7 % (1.7-12.7); Neutrophils % 80.7 % (38.7-73.9); Platelet Count 240 T/CUMM (130-400); Red Blood Count 4.76 MC/CUMM (3.8-5.5); Red Cell Distribution Width 18.7 % (9.3-17.3); White Blood Count 5.1 T/CUMM (4-12)
[2021-03-09 17:42] LABS: Albumin 3.6 G/DL (3.4-5.0); Bilirubin,Total 2.1 MG/DL (0.20-1.00); Calcium 9.7 MG/DL (8.5-10.1); Osmolality,Calculated 271.7 MOS/KG (273-304); Potassium 5.6 MMOL/L (3.5-5.1); Thyroid Stimulating Hormone 2.74 uIU/ml (0.358-3.74); Total Protein 8.2 G/DL (6.4-8.2)
[2021-03-09 17:51] LABS: Bilirubin,Urine Negative (Negative); Blood, Urine Negative (Negative); Glucose,Urine (UA) Negative (Negative); Hyaline Casts,Urine 3 /LPF (0-3); Ketones,Urine Negative (Negative); Mucus,Urine Occasional /LPF (Occasional); Nitrite,Urine Negative (Negative); Protein,Urine 100 MG/DL; RBC,Urine 1 /HPF (0-4); Squamous Epithelial Cell,Urine Occasional /HPF (0-10); Urine Appearance CLEAR (Clear); Urine Color Amber (Yellow); Urine Specific Gravity 1.024 (1.001-1.035)
[2021-03-09] MEDS ORDERED: DEXTROSE 50% 25 GM/50 ML VIAL IV STA (20:24)
[2021-03-09] MEDS ORDERED: FUROSEMIDE 40 MG/4 ML VIAL IV STA (20:24)
[2021-03-09] MEDS ORDERED: INSULIN REGULAR 100 UNIT/ML IV STA (20:24)
[2021-03-09] MEDS ORDERED: CALCIUM GLUCONATE 1,000 MG in SODIUM CHLORIDE 0.9% 100 ML IV ONE (20:24)
[2021-03-09] MEDS ORDERED: SODIUM POLYSTYRENE SULFATE 15 GM/60 ML BOTTLE PO STA (22:40)
[2021-03-10 05:43] LABS: Calcium 9.3 MG/DL (8.5-10.1); Osmolality,Calculated 278.4 MOS/KG (273-304); Potassium 4.5 MMOL/L (3.5-5.1)
[2021-03-10] MEDS: DOCUSATE SODIUM 100 MG CAPSULE PO SCH ×3 (06:10→22:14)
[2021-03-10] MEDS: FUROSEMIDE 40 MG/4 ML VIAL IV SCH ×2 (06:10→08:51)
[2021-03-10] MEDS: PANTOPRAZOLE 40 MG TABLET PO SCH (08:51)
[2021-03-10] MEDS ORDERED: ACETAMINOPHEN 325 MG TABLET PO PRN (09:43)
[2021-03-10] MEDS ORDERED: NITROGLYCERIN SL 0.4 MG TABLET SL PRN (09:43)
[2021-03-10] MEDS ORDERED: SPIRONOLACTONE 25 MG TABLET PO SCH (10:00)
[2021-03-10] MEDS: ASPIRIN EC 81 MG TABLET PO SCH (10:49)
[2021-03-10] MEDS: POTASSIUM CHLORIDE 20 MEQ TABLET PO SCH (10:49)
[2021-03-10] MEDS: CLOPIDOGREL 75 MG TABLET PO SCH (10:49)
[2021-03-10] MEDS: RIVAROXABAN 2.5 MG TABLET PO SCH ×2 (10:49→22:15)
[2021-03-10] MEDS: AMIODARONE 200 MG TABLET PO SCH (10:49)
[2021-03-10] MEDS: METOPROLOL SUCCINATE XL 25 MG TABLET PO SCH (10:49)
[2021-03-10] MEDS: ALBUTEROL/IPRATROPIUM 3 ML NEB RESP TX SCH ×4 (11:10→23:35)
[2021-03-10] MEDS: DIGOXIN 0.125 MG TABLET PO SCH (12:36)
[2021-03-10] MEDS ORDERED: DEXTROSE 50% 25 GM/50 ML VIAL IV PRN (13:54)
[2021-03-10] MEDS ORDERED: GLUCAGON 1 MG VIAL IM PRN (13:54)
[2021-03-10] MEDS ORDERED: ALBUTEROL/IPRATROPIUM 3 ML NEB RESP TX PRN (14:07)
[2021-03-10] MEDS: INSULIN REGULAR 100 UNIT/ML SUBCUT SCH ×2 (17:31→22:19)
[2021-03-10] MEDS: ASCORBIC ACID 500 MG TABLET PO SCH (22:13)
[2021-03-11] MEDS: FUROSEMIDE 40 MG/4 ML VIAL IV SCH ×3 (00:56→21:30)
[2021-03-11] MEDS: ALBUTEROL/IPRATROPIUM 3 ML NEB RESP TX SCH ×6 (03:00→23:36)
[2021-03-11 05:12] LABS: Basophils % 0.6 % (0.0-0.8); Eosinophils % 0.6 % (0.00-10.9); Hemoglobin 10.2 GM/DL (12.0-16.0); Immature Granulocytes % 0.8 %; Immature Granulocytes Absolute 0.04 #; Lymphocytes # 1.1 10*3/uL (1.4-4.0); Lymphocytes % 20.1 % (21.3-54.2); Mean Corpuscular HGB Conc 31.9 GM/DL (32-36); Mean Corpuscular Volume 81.4 FL (87-102); Mean Platelet Volume 10.9 FL (9.6-12.0); Monocytes % 14.9 % (1.7-12.7); Platelet Count 228 T/CUMM (130-400); Red Blood Count 3.93 MC/CUMM (3.8-5.5); Red Cell Distribution Width 18.1 % (9.3-17.3); White Blood Count 5.2 T/CUMM (4-12)
[2021-03-11 05:37] LABS: Calcium 8.8 MG/DL (8.5-10.1); Osmolality,Calculated 282.8 MOS/KG (273-304); Potassium 3.7 MMOL/L (3.5-5.1)
[2021-03-11 05:39] LABS: Albumin 2.8 G/DL (3.4-5.0); Bilirubin,Total 1.2 MG/DL (0.20-1.00); Calcium 8.7 MG/DL (8.5-10.1); Osmolality,Calculated 283.8 MOS/KG (273-304); Potassium 3.7 MMOL/L (3.5-5.1); Total Protein 6.8 G/DL (6.4-8.2)
[2021-03-11] MEDS: INSULIN REGULAR 100 UNIT/ML SUBCUT SCH ×4 (07:30→21:30)
[2021-03-11] MEDS: ASPIRIN EC 81 MG TABLET PO SCH (10:07)
[2021-03-11] MEDS: ASCORBIC ACID 500 MG TABLET PO SCH ×2 (10:07→21:27)
[2021-03-11] MEDS: DOCUSATE SODIUM 100 MG CAPSULE PO SCH ×2 (10:07→21:29)
[2021-03-11] MEDS: CLOPIDOGREL 75 MG TABLET PO SCH (10:08)
[2021-03-11] MEDS: POTASSIUM CHLORIDE 20 MEQ TABLET PO SCH (10:08)
[2021-03-11] MEDS: RIVAROXABAN 2.5 MG TABLET PO SCH ×2 (10:09→21:30)
[2021-03-11] MEDS: PANTOPRAZOLE 40 MG TABLET PO SCH (10:09)
[2021-03-11] MEDS: ONDANSETRON 4 MG/2 ML VIAL IV PRN (11:03)
[2021-03-11] MEDS: METOPROLOL SUCCINATE XL 25 MG TABLET PO SCH (11:12)
[2021-03-11] MEDS: AMIODARONE 200 MG TABLET PO SCH (12:03)
[2021-03-11] MEDS: DIGOXIN 0.125 MG TABLET PO SCH (12:05)
[2021-03-12] MEDS: ACETAMINOPHEN 325 MG TABLET PO PRN ×3 (01:40→20:22)
[2021-03-12] MEDS: ALBUTEROL/IPRATROPIUM 3 ML NEB RESP TX SCH ×6 (03:08→23:20)
[2021-03-12 06:08] LABS: Basophils % 0.7 % (0.0-0.8); Eosinophils # 0.2 10*3/uL (0.0-0.87); Hematocrit 31.4 VOL% (35.7-47.0); Hemoglobin 9.8 GM/DL (12.0-16.0); Immature Granulocytes % 0.4 %; Immature Granulocytes Absolute 0.02 #; Lymphocytes % 21.2 % (21.3-54.2); Mean Corpuscular HGB Conc 31.2 GM/DL (32-36); Mean Corpuscular Volume 82.6 FL (87-102); Mean Platelet Volume 10.4 FL (9.6-12.0); Monocytes % 16.8 % (1.7-12.7); Neutrophils % 55.9 % (38.7-73.9); Platelet Count 237 T/CUMM (130-400); Red Cell Distribution Width 18.5 % (9.3-17.3); White Blood Count 4.6 T/CUMM (4-12)
[2021-03-12 06:34] LABS: Bilirubin,Total 1.1 MG/DL (0.20-1.00); Calcium 8.8 MG/DL (8.5-10.1); Osmolality,Calculated 278.8 MOS/KG (273-304); Potassium 3.6 MMOL/L (3.5-5.1)
[2021-03-12 06:48] LABS: Eosinophils 4 % (0-10); Hypochromasia 2+; Lymphocytes 11 % (20-55); Microcytosis 2+; Segmented Neutrophils 78 % (50-85); Total Cells Counted 100
[2021-03-12 06:49] LABS: Ovalocytes Few; Platelet Estimate Normal; Polychromasia Slight; Target Cells Few
[2021-03-12] MEDS: INSULIN REGULAR 100 UNIT/ML SUBCUT SCH ×4 (07:30→20:04)
[2021-03-12] MEDS ORDERED: FUROSEMIDE 40 MG TABLET PO SCH (09:00)
[2021-03-12] MEDS: ASPIRIN EC 81 MG TABLET PO SCH (09:38)
[2021-03-12] MEDS: DOCUSATE SODIUM 100 MG CAPSULE PO SCH ×2 (09:38→20:22)
[2021-03-12] MEDS: RIVAROXABAN 2.5 MG TABLET PO SCH ×2 (09:39→20:22)
[2021-03-12] MEDS: CLOPIDOGREL 75 MG TABLET PO SCH (09:39)
[2021-03-12] MEDS: ASCORBIC ACID 500 MG TABLET PO SCH ×2 (09:39→20:22)
[2021-03-12] MEDS: AMIODARONE 200 MG TABLET PO SCH (09:39)
[2021-03-12] MEDS: POTASSIUM CHLORIDE 20 MEQ TABLET PO SCH (09:39)
[2021-03-12] MEDS: PANTOPRAZOLE 40 MG TABLET PO SCH (09:39)
[2021-03-12] MEDS: METOPROLOL SUCCINATE XL 25 MG TABLET PO SCH (10:56)
[2021-03-12] MEDS: DIGOXIN 0.125 MG TABLET PO SCH (12:25)
[2021-03-12] MEDS: ONDANSETRON 4 MG/2 ML VIAL IV PRN ×2 (12:26→20:28)
[2021-03-13] MEDS: ACETAMINOPHEN 325 MG TABLET PO PRN ×2 (01:17→09:23)
[2021-03-13] MEDS: ALBUTEROL/IPRATROPIUM 3 ML NEB RESP TX SCH ×5 (04:18→19:58)
[2021-03-13 06:37] LABS: Basophils # 0.1 10*3/uL (0.0-0.2); Basophils % 1.2 % (0.0-0.8); Eosinophils # 0.2 10*3/uL (0.0-0.87); Eosinophils % 4.9 % (0.00-10.9); Hematocrit 33.3 VOL% (35.7-47.0); Hemoglobin 10.4 GM/DL (12.0-16.0); Immature Granulocytes % 0.5 %; Immature Granulocytes Absolute 0.02 #; Lymphocytes # 0.9 10*3/uL (1.4-4.0); Lymphocytes % 22.1 % (21.3-54.2); Mean Corpuscular HGB Conc 31.2 GM/DL (32-36); Mean Corpuscular Volume 83.7 FL (87-102); Mean Platelet Volume 10.6 FL (9.6-12.0); Monocytes % 15.7 % (1.7-12.7); Neutrophils % 55.6 % (38.7-73.9); Platelet Count 241 T/CUMM (130-400); Red Blood Count 3.98 MC/CUMM (3.8-5.5); Red Cell Distribution Width 18.6 % (9.3-17.3); White Blood Count 4.1 T/CUMM (4-12)
[2021-03-13 07:17] LABS: Eosinophils 8 % (0-10); Lymphocytes 26 % (20-55); Segmented Neutrophils 56 % (50-85); Total Cells Counted 100
[2021-03-13 07:18] LABS: Hypochromasia 2+; Microcytosis 1+; Platelet Estimate Normal; Polychromasia Slight
[2021-03-13 07:22] LABS: Albumin 3.1 G/DL (3.4-5.0); Bilirubin,Total 1.5 MG/DL (0.20-1.00); Calcium 8.9 MG/DL (8.5-10.1); Potassium 3.9 MMOL/L (3.5-5.1); Total Protein 7.3 G/DL (6.4-8.2)
[2021-03-13] MEDS: INSULIN REGULAR 100 UNIT/ML SUBCUT SCH ×4 (07:30→20:10)
[2021-03-13] MEDS: RIVAROXABAN 2.5 MG TABLET PO SCH ×2 (09:22→21:25)
[2021-03-13] MEDS: ASCORBIC ACID 500 MG TABLET PO SCH ×2 (09:22→21:25)
[2021-03-13] MEDS: PANTOPRAZOLE 40 MG TABLET PO SCH (09:22)
[2021-03-13] MEDS: POTASSIUM CHLORIDE 20 MEQ TABLET PO SCH (09:22)
[2021-03-13] MEDS: CLOPIDOGREL 75 MG TABLET PO SCH (09:23)
[2021-03-13] MEDS: DOCUSATE SODIUM 100 MG CAPSULE PO SCH ×2 (09:23→21:25)
[2021-03-13] MEDS: ASPIRIN EC 81 MG TABLET PO SCH (09:23)
[2021-03-13] MEDS: AMIODARONE 200 MG TABLET PO SCH (09:23)
[2021-03-13] MEDS ORDERED: NAPROXEN 250 MG TABLET PO PRN (10:24)
[2021-03-13] MEDS ORDERED: KETOROLAC 30 MG/1 ML VIAL IM ONE (10:28)
[2021-03-13] MEDS: METOPROLOL SUCCINATE XL 25 MG TABLET PO SCH (10:39)
[2021-03-13] MEDS: DIGOXIN 0.125 MG TABLET PO SCH (12:30)
[2021-03-14] MEDS: ALBUTEROL/IPRATROPIUM 3 ML NEB RESP TX SCH ×7 (00:28→23:46)
[2021-03-14 05:33] LABS: Basophils % 0.7 % (0.0-0.8); Eosinophils # 0.1 10*3/uL (0.0-0.87); Eosinophils % 1.5 % (0.00-10.9); Hematocrit 32.7 VOL% (35.7-47.0); Hemoglobin 10.2 GM/DL (12.0-16.0); Immature Granulocytes % 0.8 %; Immature Granulocytes Absolute 0.05 #; Lymphocytes # 0.7 10*3/uL (1.4-4.0); Lymphocytes % 12.4 % (21.3-54.2); Mean Corpuscular HGB Conc 31.2 GM/DL (32-36); Mean Corpuscular Volume 82.8 FL (87-102); Mean Platelet Volume 10.3 FL (9.6-12.0); Monocytes % 15.1 % (1.7-12.7); Neutrophils % 69.5 % (38.7-73.9); Platelet Count 254 T/CUMM (130-400); Red Blood Count 3.95 MC/CUMM (3.8-5.5); Red Cell Distribution Width 18.1 % (9.3-17.3); White Blood Count 5.9 T/CUMM (4-12)
[2021-03-14 05:55] LABS: Albumin 3.5 G/DL (3.4-5.0); Bilirubin,Total 1.7 MG/DL (0.20-1.00); Calcium 8.9 MG/DL (8.5-10.1); Osmolality,Calculated 261.1 MOS/KG (273-304); Potassium 4.5 MMOL/L (3.5-5.1); Total Protein 7.6 G/DL (6.4-8.2)
[2021-03-14] MEDS: INSULIN REGULAR 100 UNIT/ML SUBCUT SCH ×4 (09:12→22:01)
[2021-03-14] MEDS: ASPIRIN EC 81 MG TABLET PO SCH (10:21)
[2021-03-14] MEDS: DOCUSATE SODIUM 100 MG CAPSULE PO SCH ×2 (10:21→21:58)
[2021-03-14] MEDS: CLOPIDOGREL 75 MG TABLET PO SCH (10:21)
[2021-03-14] MEDS: ASCORBIC ACID 500 MG TABLET PO SCH ×2 (10:21→21:58)
[2021-03-14] MEDS: PANTOPRAZOLE 40 MG TABLET PO SCH (10:22)
[2021-03-14] MEDS: RIVAROXABAN 2.5 MG TABLET PO SCH ×2 (10:22→21:58)
[2021-03-14] MEDS: METOPROLOL SUCCINATE XL 25 MG TABLET PO SCH (10:22)
[2021-03-14] MEDS: POTASSIUM CHLORIDE 20 MEQ TABLET PO SCH (10:22)
[2021-03-14] MEDS: AMIODARONE 200 MG TABLET PO SCH (10:22)
[2021-03-14] MEDS: ACETAMINOPHEN 325 MG TABLET PO PRN (10:29)
[2021-03-14] MEDS: DIGOXIN 0.125 MG TABLET PO SCH (13:09)
[2021-03-14] MEDS: FUROSEMIDE 40 MG TABLET PO SCH (13:09)
[2021-03-15] MEDS: ALBUTEROL/IPRATROPIUM 3 ML NEB RESP TX SCH ×3 (04:22→11:34)
[2021-03-15 06:25] LABS: HDL Cholesterol 67 MG/DL (40-60); Risk Ratio 1.84; Triglycerides < 15 MG/DL (2-150)
[2021-03-15 06:56] LABS: Basophils % 0.3 % (0.0-0.8); Eosinophils % 0.1 % (0.00-10.9); Hematocrit 39.7 VOL% (35.7-47.0); Immature Granulocytes % 1.9 %; Immature Granulocytes Absolute 0.18 #; Lymphocytes # 0.9 10*3/uL (1.4-4.0); Lymphocytes % 9.8 % (21.3-54.2); Mean Corpuscular HGB Conc 30.5 GM/DL (32-36); Mean Corpuscular Volume 87.3 FL (87-102); Mean Platelet Volume 11.1 FL (9.6-12.0); Monocytes % 15.7 % (1.7-12.7); NRBC # 0.09 10*3/uL; Neutrophils % 72.2 % (38.7-73.9); Platelet Count 207 T/CUMM (130-400); Red Blood Count 4.55 MC/CUMM (3.8-5.5); Red Cell Distribution Width 18.5 % (9.3-17.3); White Blood Count 9.6 T/CUMM (4-12)
[2021-03-15 07:00] LABS: Hemoglobin 12.1 GM/DL (12.0-16.0)
[2021-03-15 07:08] LABS: Lymphocytes 15 % (20-55); Platelet Estimate Normal; Segmented Neutrophils 74 % (50-85); Total Cells Counted 100
[2021-03-15 08:09] LABS: Albumin 3.5 G/DL (3.4-5.0); Bilirubin,Total 2.6 MG/DL (0.20-1.00); Calcium 9.3 MG/DL (8.5-10.1); Osmolality,Calculated 249.1 MOS/KG (273-304); Total Protein 8.1 G/DL (6.4-8.2)
[2021-03-15] MEDS ORDERED: ALPRAZolam 0.5 MG TABLET PO ONE (08:16)
[2021-03-15 08:18] LABS: Potassium 6.1 MMOL/L (3.5-5.1)
[2021-03-15] MEDS ORDERED: ALPRAZolam 0.5 MG TABLET PO PRN (08:22)
[2021-03-15] MEDS ORDERED: FUROSEMIDE 20 MG/2 ML VIAL IV ONE (08:22)
[2021-03-15] MEDS: INSULIN REGULAR 100 UNIT/ML SUBCUT SCH ×2 (08:25→11:34)
[2021-03-15] MEDS: POTASSIUM CHLORIDE 20 MEQ TABLET PO SCH (08:26)
[2021-03-15] MEDS ORDERED: SODIUM POLYSTYRENE SULFATE 15 GM/60 ML BOTTLE PO STA (08:32)
[2021-03-15] MEDS: DOCUSATE SODIUM 100 MG CAPSULE PO SCH (08:47)
[2021-03-15] MEDS: ASPIRIN EC 81 MG TABLET PO SCH (08:47)
[2021-03-15] MEDS: FUROSEMIDE 40 MG TABLET PO SCH (08:47)
[2021-03-15] MEDS: CLOPIDOGREL 75 MG TABLET PO SCH (08:48)
[2021-03-15] MEDS: PANTOPRAZOLE 40 MG TABLET PO SCH (08:48)
[2021-03-15] MEDS: ASCORBIC ACID 500 MG TABLET PO SCH (08:48)
[2021-03-15] MEDS: RIVAROXABAN 2.5 MG TABLET PO SCH (08:48)
[2021-03-15] MEDS: METOPROLOL SUCCINATE XL 25 MG TABLET PO SCH (08:48)
[2021-03-15] MEDS: AMIODARONE 200 MG TABLET PO SCH (08:48)
[2021-03-15] MEDS ORDERED: FUROSEMIDE 40 MG/4 ML VIAL IV SCH (09:25)
[2021-03-15] MEDS ORDERED: SODIUM BICARBONATE 50 MEQ/50 ML SYRINGE IV ONE (09:31)
[2021-03-15] MEDS ORDERED: INSULIN REGULAR 100 UNIT/ML ONE (09:31)
[2021-03-15] MEDS ORDERED: EPINEPHrine 1 MG/10 ML SYRINGE ONE (09:31)
[2021-03-15] MEDS ORDERED: CALCIUM CHLORIDE 1,000 MG/10 ML SYRINGE IV ONE (09:31)
[2021-03-15 11:01] VITALS: BP 130/70
== END 2021-03-15 09:49 | disposition expired | DRG 291 ==
LOC: EDBD → EDUNIT# → N.ED 15:38 → N.EDINP 20:32 → N.TELEN 20:41 → N.ICU 03-15 09:42 → N.TELEN 03-15 09:57
PROVIDERS: ADMIT Family Medicine; ATTEND Family Medicine